=== PATIENT | female | born 1965 | race Caucasian/White ===

== ENCOUNTER 2024-05-06 08:07 | Emergency (ER) | payer OTHER, SELFPAY ==
--- NOTE | ~2024-05-06 | MR_ITS ---
EXAMINATION: MR BRAIN WITHOUT AND WITH CONTRAST CLINICAL INFORMATION: Headaches. Paresthesia. COMPARISON: CT head from 05/06/2024. TECHNIQUE: MRI of the brain was obtained using routine sequences without and following the administration of 10 mL of Gadavist intravenous contrast. FINDINGS: No focal restricted diffusion is demonstrated to suggest acute or subacute cerebral ischemia. No evidence of acute or chronic hemorrhagic products on heme-sensitive imaging. Scattered periventricular and deep white matter T2 FLAIR hyperintensities consistent with mild underlying microangiopathy. The ventricles are normal in morphology and size. No abnormal mass effect. No midline shift. Normal appearance of the pituitary gland. The cerebellar tonsils are mildly low lying, positioned 0.3 cm below the foramen magnum. The CSF space of the foramen magnum is maintained. Normal arterial and venous vascular flow voids are present. No abnormal contrast enhancement. Normal, homogeneous marrow signal. Mild mucosal thickening of the paranasal sinuses. No signal abnormalities within the mastoids. MR/MR head/brain wo/w con IMPRESSION: 1. No acute intracranial abnormalities. No abnormal intracranial enhancement. 2. Mild underlying microangiopathy. 3. Mild cerebellar tonsillar ectopia.
--- NOTE | ~2024-05-06 | CT_ITS ---
EXAMINATION: CT HEAD WITHOUT CONTRAST CLINICAL INFORMATION: Chronic worsening headache. COMPARISON: None available. TECHNIQUE: Contiguous axial imaging was performed from the skull base to vertex without intravenous administration of contrast. This CT examination was performed using dose optimization techniques as appropriate, variously including the following: *Automated exposure control *Adjustment of mA and/or kV according to patient size (this includes techniques or standardized protocols for targeted exams where dose is matched to indication/reason for exam; i.e. extremities or head) *Use of iterative reconstruction technique DLP: 632 mGy-cm FINDINGS: There is possible loss of villalba to white matter differentiation in the posterior right occipital lobe. No intracranial hemorrhage. No mass effect or midline shift is seen. No extra-axial fluid collections are identified. No hydrocephalus. The calvarium is intact. The mastoid air cells and visualized portions of the paranasal sinuses are well aerated. CT/CT head/brain wo IV con IMPRESSION: Possible loss of villalba to white matter differentiation the posterior right occipital lobe concerning for underlying pathology. Advise correlation with MRI brain without and with contrast.
[2024-05-06 08:08] VITALS: BP 149/65; PULSE 67; RESP 20; TEMP 37.2; O2SAT 97; BMI 40.4
--- NOTE | 2024-05-06 08:17 | PC.NURSE ---
neuros intact in triage, ÁNGEL strength in all four extremities. while talking to this RN pt had a moment where she appeared to have lost her train of thought and just stopped talking completely with a vacant stare. recalled to name. Dann barrel rib matting machine operator made aware and pt moved to ED 2
[2024-05-06 08:40] VITALS: BP 153/73; PULSE 60; RESP 18; TEMP 36.9; O2SAT 96
--- NOTE | 2024-05-06 08:40 | ECG_ITS ---
Test Reason : HTN Blood Pressure : / mmHG Vent. Rate : 053 BPM Atrial Rate : 053 BPM P-R Int : 146 ms QRS Dur : 088 ms QT Int : 436 ms P-R-T Axes : 115 113 119 degrees QTc Int : 409 ms Suspect limb lead reversal, interpretation assumes no reversal Sinus bradycardia Left posterior fascicular block Cannot rule out Anterior infarct , age undetermined Abnormal ECG No previous ECGs available Referred By: Jocelin Hill Electronically Signed By:TED ACKERMAN
--- NOTE | 2024-05-06 08:42 | ED.GENADULT ---
HPI - General Adult General Chief complaint: General Medical Stated complaint: SOB Facial Numbness Time Seen by Provider: 05/06/24 08:16 Source: patient Mode of arrival: ambulatory Limitations: no limitations History of Present Illness ED Provider: PEDRO HPI narrative: 58 yo female with PMH of anxiety/depression on sertraline, DANIEL on CPAP, obesity who has had chronic headaches for 1 year L side then evolves into L sided facial paresthesias. She has also been under significant stress at home caring for her 81 year old mother with limited help from her sibling. She is very stressed out has been having more headaches and symptoms. Randomly checked her BP today with mom's machine and it was 140/80s and she panicked. She is very tearful on arrival. MD complaint: HTN, anxiety Onset (ago): hour(s) (few) Location: head and face Radiation: non-radiation Severity: mild Quality: aching Pain Consistency: intermittent Relieving factors: none Exacerbating factors: other (stress) Associated symptoms: other (paresthesias) Treatments prior to arrival: none Related Data Previous Rx's ?Medication ?Instructions ?Recorded lorazepam 0.5 mg tablet (Ativan) 0.5 mg PO BID PRN anxiety #10 tabs 05/06/24 Allergies Allergy/AdvReac Type Severity Reaction Status Date / Time Penicillins Allergy Rash Verified 05/06/24 08:12 Review of Systems Review of Systems: Constitutional : No Fever, No Chills, No Fatigue ENT/Mouth : No sore throat, No Rhinorrhea Eyes: No Eye Pain, No Swelling, No Redness Cardiovascular : No Chest Pain, No SOB, No Dyspnea on Exertion Respiratory : No Cough, No Sputum Gastrointestinal : No Nausea, No Vomiting, No Diarrhea, No abdominal Pain Genitourinary : No Dysuria, No Urinary Frequency, No Hematuria, Musculoskeletal : No joint pain, No Myalgias, No Joint Swelling Skin : No Skin Lesions, No rash Neuro : No Weakness, pos Numbness, No Dizziness, positive Headache Psych : pos Anxiety/Panic, No Depression Heme/Lymph: No Bruising, No Bleeding,No Lymphadenopathy Endocrine : No Polyuria, No Polydipsia All other systems reviewed and are negative PMFSH Past Medical History Attestation statement: The following information was validated with the patient. Source: old records reviewed Medical History Anxiety DANIEL (obstructive sleep apnea) Obesity Social History Social History (Updated 05/06/24 @ 09:08 by Jocelin Hill DO) Patient Tobacco Use Status: Never used Tobacco Smoked in Last 30 Days: No Use of substances other than those prescribed or required for medical reasons: No Advance Directives: No Advance Directives Information Provided: No Do you have a plan to hurt others: No Plan Patient : No Physical Exam ED Vital Signs: Vital Signs - 24 hr 05/06/24 08:08 05/06/24 08:40 05/06/24 12:21 Temperature 99 F 98.4 F 98.6 F Pulse Rate 67 60 53 Respiratory Rate 20 18 18 Blood Pressure 149/65 H 153/73 H 130/59 L Pulse Oximetry 97 96 97 Oxygen Delivery Method Room Air Room Air Room Air 05/06/24 13:52 Temperature 98.6 F Pulse Rate 58 Respiratory Rate 15 Blood Pressure 133/59 L Pulse Oximetry 98 Oxygen Delivery Method Room Air BMI result Body Mass Index 40.4 Appearance: Alert. Oriented X3. No acute distress. tearful and anxious Eyes: Pupils equal, round and reactive to light. ENT: Pharynx normal. Neck: Normal inspection. Neck supple. CVS: Normal heart rate and rhythm. Pulses normal. Respiratory: No respiratory distress. Breath sounds normal. Abdomen: Soft and nontender. Skin: Skin warm and dry. Normal skin color. Normal skin turgor. Extremities: No lower extremity edema. No calf ttp Neuro: Oriented X 3. No motor deficit. No sensory deficit. NIH Stroke Scale Internal: Initial- Upon Arrival Time: 09:00 Level of Consciousness: Alert Level of Consciousness Questions: Answers both questions correctly Level of Consciousness Commands: Performs both tasks correctly Best Gaze: Normal Visual: No visual loss Facial Palsy: Normal Motor Arm (Right): No drift Motor Arm (Left): No drift Motor Leg (Right): No drift Motor Leg (Left): No drift Limb Ataxia: Absent Sensory: Normal Best Language: No aphasia Dysarthia: Normal Extinction and Inattention: No abnormality Score: 0 Course Course Course Narrative: given CT scan brain MRI ordered patient is aware Reevaluation(s) Reevaluation #1: observation care revealed that the patient does not meet medical necessity for hospitalization. final disposition discussed with the patient. The patient completed observation care at 430pm. Total time in observation care was 4 hours. Medications Administered Discontinued Medications Generic Name Dose Route Start Last Admin Trade Name Rosalva PRN Reason Stop Dose Admin Gadobutrol 10 ml 05/06/24 15:25 05/06/24 15:26 Gadobutrol 10 Ml Vial IVPUSH 05/06/24 15:26 10 ml ONCE ONE Administration Lorazepam 1 mg 05/06/24 08:40 05/06/24 08:52 Lorazepam 1 Mg Tablet PO 05/06/24 08:41 1 mg ONCE ONE Administration Medical Decision Making Medical Decision Making MDM Narrative: 58 yo female with PMH of anxiety/depression on sertraline, DANIEL on CPAP, obesity who has had worsening headaches, anxiety, facial tingling for 1 year at this time will obtain labs, po ativan for anxiety, CT head for mass - EKG suspect anxiety and stress induced symptoms her NIH is 0 symptoms atypical for TIA and stroke Differential Diagnosis Differential Diagnoses: The differential diagnosis associated with the presentation includes anxiety, stress, complex migraine Admission/Observation Consideration of admission/observation: Escalation of care including admission/observation considered physician observation started at 1156am pending MRI negative workup stable for DC Lab Data [facility] Lab Attestation statement: I reviewed the patient's lab results. 05/06/24 08:47 05/06/24 08:47 Labs: Lab Results 05/06/24 Range/Units 08:47 WBC 5.5 (4.8-10.8) X10*3/uL RBC 4.56 (4.20-5.50) X10*6/uL Hgb 13.4 (12.0-16.0) g/dl Hct 39.8 (37.0-47.0) % MCV 87.3 (80.0-98.0) fL MCH 29.4 (27.0-33.0) pg MCHC 33.7 (31.0-35.0) g/dl RDW 13.2 (11.0-16.0) % Plt Count 175 (160-400) X10*3/uL MPV 12.3 (9.4-12.3) fL Immature Gran % (Auto) 0.2 (0.0-0.4) % Neut % (Auto) 50.7 (45-73) % Lymph % (Auto) 37.4 (20-40) % [place] % (Auto) 8.3 (2-11) % Eos % (Auto) 2.5 (0-4) % Baso % (Auto) 0.9 (0-2) % Lymph # (Auto) 2.1 (1.2-4.9) X10*3/uL [place] # (Auto) 0.5 (0.1-1.2) X10*3/uL Eos # (Auto) 0.1 (0.0-0.4) X10*3/uL Baso # (Auto) 0.1 (0.0-0.2) X10*3/uL Abs Immat Gran (auto) 0.01 (0.00-0.03) X10*3/uL Absolute Neuts (auto) 2.8 (2.0-8.3) x10*3/uL Absolute Nucleated RBC 0.000 (0.0-0.012) X10*3/uL Nucleated RBC % (auto) 0.0 (0.0-0.2) /100WBC Sodium 141 (135-145) mmol/L Potassium 4.1 (3.3-5.1) mmol/L Chloride 108 (96-108) mmol/L Carbon Dioxide 26 (22-29) mmol/L Anion Gap 11 L (12-20) BUN 15 (9-16) mg/dL Creatinine 0.77 (0.5-1.4) mg/dL Estim Creat Clear Calc 89.3 Estimated GFR > 60 Random Glucose 101 (60-115) mg/dL Calcium 9.4 (8.4-10.2) mg/dL Magnesium 2.2 (1.6-2.6) mg/dL Total Bilirubin 0.3 (0.0-1.0) mg/dL Direct Bilirubin 0.1 (0.0-0.5) mg/dL AST 14 (5-31) U/L ALT 12 (0-31) U/L Alkaline Phosphatase 49 (39-117) U/L Troponin I High Sens < 2.7 (<3.5-17.0) ng/L Total Protein 6.6 (6.5-8.0) g/dL Albumin 4.0 (3.5-5.0) g/dL Independent Interpretation I performed an independent interpretation of an: EKG and CT Scan (MRI no stroke) Interpretation: Rate: 53 Rhythm: sinus flako Paradox: normal Normal P waves. Normal MARTÍN. Normal QRS complex. Poor R wave progression ST T wave : inverted t waves I and avL, no PARKER qTC: 409 prior studies: no prior The study has been interpreted contemporaneously by me. . Radiology Impression Discussion of test interpretation with radiology: I have reviewed the radiologist's reading. External Record Review External record reviewed: Inpatient record Prescription Management I considered prescription management with: Other Discharge Plan Discharge Clinical Impression: Acute anxiety, Paresthesia Patient Disposition: Home, Self-Care Instructions: Paresthesia (ED), Anxiety (ED) Additional Instructions: nonspecific findings on EKG MRI no stroke but low lying tonsils this is chronic and can be followed by Neurology can follow up with Eric follow up with your primary care doctor next week return for any worsening symptoms or concerns continue your medications MR/MR head/brain wo/w con IMPRESSION: 1. No acute intracranial abnormalities. No abnormal intracranial enhancement. 2. Mild underlying microangiopathy. 3. Mild cerebellar tonsillar ectopia. Prescriptions: New lorazepam [Ativan] 0.5 mg tablet 0.5 mg PO BID PRN (Reason: anxiety) Qty: 10 0RF Referrals: King Reyes MD [Physician] - (neurology can call to follow up) Alfonso Salguero MD [Physician] - (call to follow up with stress test) Stand Alone Forms: Work/School Release Print Language: Irish
[2024-05-06 08:51] LABS: MANUAL DIFF FLAG NO
[2024-05-06] MEDS: LORazepam 1 MG TABLET PO (08:52)
--- NOTE | 2024-05-06 08:53 | PC.NURSE ---
a&ox4. vss and up to date aside from being slightly hypertensive. pt verbalizes presenting to the ED d/t increased BP after taking it at home. pt verbalizing feeling extremely stressed out w/ taking care of mother at home. pt very tearful/anxious during assessment. pt also verbalizing sudden onset left sided MUNIZ w/ numbness/tingling in left side of face. pt verbalizes MUNIZ started after taking BP. pt denies dizziness/lightheadedness/change in vision. 20gIV placed in the left AC. medication administered per provider. effectiveness pending. no sob/wob noted. respirations even/unlabored. pt waiting to go to CT at this time. plan of care ongoing. call heck placed within reach.
[2024-05-06 08:57] LABS: Basophils Absolute Auto 0.1 X10*3/uL (0.0-0.2); Basophils Percent Auto 0.9 % (0-2); Eosinophils Absolute Auto 0.1 X10*3/uL (0.0-0.4); Eosinophils Percent Auto 2.5 % (0-4); Hematocrit 39.8 % (37.0-47.0); Hemoglobin 13.4 g/dl (12.0-16.0); Imm Gran Abs Auto 0.01 X10*3/uL (0.00-0.03); Imm Gran Pct Auto 0.2 % (0.0-0.4); Lymphocytes Absolute Auto 2.1 X10*3/uL (1.2-4.9); Lymphocytes Percent Auto 37.4 % (20-40); Mean Corpuscular HGB Conc 33.7 g/dl (31.0-35.0); Mean Corpuscular Hemoglobin 29.4 pg (27.0-33.0); Mean Corpuscular Volume 87.3 fL (80.0-98.0); Mean Platelet Volume 12.3 fL (9.4-12.3); Monocytes Absolute Auto 0.5 X10*3/uL (0.1-1.2); Monocytes Percent Auto 8.3 % (2-11); Neutrophils Absolute Auto 2.8 x10*3/uL (2.0-8.3); Neutrophils Percent Auto 50.7 % (45-73); Platelet Count 175 X10*3/uL (160-400); Red Blood Count 4.56 X10*6/uL (4.20-5.50); Red Cell Distribution Width 13.2 % (11.0-16.0); White Blood Count 5.5 X10*3/uL (4.8-10.8)
[2024-05-06 09:09] LABS: Alanine Aminotransferase 12 U/L (0-31); Alkaline Phosphatase 49 U/L (39-117); Anion Gap 11 (12-20); Aspartate Amino Transferase 14 U/L (5-31); Bilirubin Direct 0.1 mg/dL (0.0-0.5); Bilirubin Total 0.3 mg/dL (0.0-1.0); Blood Urea Nitrogen 15 mg/dL (9-16); Calcium 9.4 mg/dL (8.4-10.2); Carbon Dioxide 26 mmol/L (22-29); Chloride 108 mmol/L (96-108); Creatinine Clr Calc Pharmacy 89.3; Estimated Glomerular Filt Rate > 60; Glucose Random 101 mg/dL (60-115); Magnesium 2.2 mg/dL (1.6-2.6); Potassium 4.1 mmol/L (3.3-5.1); Sodium 141 mmol/L (135-145); Total Protein 6.6 g/dL (6.5-8.0)
--- NOTE | 2024-05-06 09:10 | PC.NURSE ---
pt to CT at this time.
[2024-05-06 09:22] LABS: Troponin-I High Sensitivity < 2.7 ng/L (<3.5-17.0)
--- NOTE | 2024-05-06 11:09 | PC.NURSE ---
pt spoke w/ ED provider in regards to CT results/aware of plan of care moving forward. MRI form filled out/faxed/placed in pt chart. plan of care ongoing.
[2024-05-06 12:21] VITALS: BP 130/59; PULSE 53; RESP 18; TEMP 37; O2SAT 97
[2024-05-06 13:52] VITALS: BP 133/59; PULSE 58; RESP 15; TEMP 37; O2SAT 98
--- NOTE | 2024-05-06 14:15 | PC.NURSE ---
pt to MRI at this time.
[2024-05-06] MEDS: gadobutroL 10 ML VIAL IVPUSH (15:26)
[2024-05-06 16:41] VITALS: BP 131/60; PULSE 54; RESP 14; TEMP 36.6; O2SAT 98
== END 2024-05-06 16:46 | disposition home or self-care (01) ==
PROVIDERS: Emergency Provider Emergency Medicine
DX: F41.1 Generalized anxiety disorder (principal); F43.0 Acute stress reaction; R00.1 Bradycardia, unspecified; R06.02 Shortness of breath; R20.0 Anesthesia of skin; G47.33 Obstructive sleep apnea (adult) (pediatric); R51.9 Headache, unspecified; Z79.899 Other long term (current) drug therapy
CPT/HCPCS: 36415; 70450; 70553; 80048; 80076; 83735; 84484; 85025; 93005; 99284; 99285; A9585

== ENCOUNTER → 2024-05-06 08:40 | Outpatient (BNV) | payer OTHER, SELFPAY | PROVIDERS: Emergency Provider Emergency Medicine; Visit Provider Internal Medicine | DX: I10 Essential (primary) hypertension (principal); R00.1 Bradycardia, unspecified; R94.31 Abnormal electrocardiogram [ECG] [EKG] | CPT/HCPCS: 93010 ==

== ENCOUNTER 2024-06-30 11:02 | Outpatient (AMB) | payer OTHER, SELFPAY ==
[2024-06-30 11:04] VITALS: BP 128/72; PULSE 78
--- NOTE | 2024-06-30 11:04 | A.OFFVIS_ITS ---
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 She states that she does have a lot of anxiety as she has take care of elderly mother. She recently, she had a very stressful time and that led to ER visit. However, no clear-cut cardiac symptoms like exertional angina or shortness of breath. No known cardiac issues including coronary disease or myocardial infarction or cardiomyopathy. Otherwise, feels well. She is concerned as there is a family history of cardiac issues in her father and his side. [facility] Medical History Anxiety DANIEL (obstructive sleep apnea) Obesity Family History Mother Hypertension Father Heart attack Hypertension CHF (congestive heart failure) Brother Aortic calcification Social History (Updated 06/30/24 @ 11:08 by Ana Paula Lieberman CMA) Alcohol intake: current Comment: rarely Patient Tobacco Use Status: Never used Tobacco Review of Systems Const Denies chills, Denies daytime sleepiness, Denies fatigue, Denies fever(s), Denies poor appetite, Denies snoring, Denies stops breathing during sleep, Denies weakness, Denies weight gain and Denies weight loss Eyes Denies loss of vision ENT Denies dizziness and Denies hearing loss Card Denies chest pain, Denies irregular heart rhythm, Denies claudication, Denies leg edema, Denies lightheadedness, Denies palpitations, Denies dyspnea on exertion and Denies orthopnea Resp Denies cough, Denies excessive phlegm production, Denies dyspnea on exertion, Denies snoring and Denies wheezing GI Denies abdominal pain, Denies hematochezia, Denies change in bowel habits, Denies nausea and Denies vomiting Denies urinary frequency and Denies dysuria Musc Denies arthralgias, Denies muscle weakness, Denies numbness and Denies other Skin/Breast Denies nail changes and Denies rash Neuro Denies Abnormal speech present, Denies dizziness, Denies loss of vision, Denies memory loss, Denies numbness and Denies weakness Psych Denies depression and Denies memory loss Endo Denies fatigue and Denies palpitations Primitivo/Lymph Denies easy bruising Aller/Immun Denies wheezing Physical Exam Vital Signs: Last Vital Signs Pulse 78 06/30/24 11:04 BP 128/72 06/30/24 11:04 Const General: comfortable and no acute distress Orientation/consciousness: patient oriented x3 HEENT Other: Unremarkable Head: Yes normal to inspection Neck Neck: Yes normal visual inspection Chest Chest palpation & inspection: normal inspection of the chest Resp Auscultation: clear to auscultation bilaterally Cardio Palpation: normal PMI Heart sounds: S1 normal heart sound present, S2 normal heart sound present, no gallops, Murmur heart sound present systolic II/ and no rubs GI Palpation (GI): Soft to palpation Back/Spine/Pelvis Other: unremarkable Skin General skin exam: no rashes or lesions noted Neuro General: patient oriented x3 Speech: No Abnormal speech present Extrem General: Yes normal to inspection Psych Mental Status: mental status grossly normal Office Procedures EKG Details: EKG with underlying sinus rhythm at 64/Min; low-voltage QRS complexes likely from body habitus; no significant ST-T changes and otherwise unremarkable. Left posterior fascicular block described in the earlier EKGs likely from lead placement error. [id number], Complete Assessment & Plan Assessment & Plan (1) Family history of coronary artery disease: Code(s): Z82.49 - Family history of ischemic heart disease and other diseases of the circulatory system Category: Medical Plan: We discussed about calcium scoring CT scan and she is willing. Can be scheduled. (2) Aortic valve sclerosis: Code(s): I35.8 - Other nonrheumatic aortic valve disorders Category: Medical Plan: Systolic murmur suggestive of possibly aortic sclerosis. We can get an echocardiogram. Orders: Orders CA echo transthoracic complete Today I35.8 - Other nonrheumatic aortic valve disorders CT Coronary Calcium Score Today I25.10 - Atherosclerotic heart disease of [place] coronary artery without angina pectoris, Z82.49 - Family history of ischemic heart disease and other diseases of the circulatory system Medications: Discontinued lorazepam (Ativan) Discontinued Reason: Patient no longer taking 0.5 mg PO BID PRN 10 tabs 0RF anxiety Coding Level of Care Code New Pt Level 3 (90548) Diagnoses Family history of coronary artery disease Z82.49 Aortic valve sclerosis I35.8 CPT Codes EKG - CPT: 82231-[id number], Complete ([id number])
== END 2024-06-30 11:32 | disposition home or self-care (01) ==
PROVIDERS: Visit Provider Internal Medicine
DX: I35.8 Other nonrheumatic aortic valve disorders (principal); R01.1 Cardiac murmur, unspecified; Z82.49 Family history of ischemic heart disease and other diseases of the circulatory system
CPT/HCPCS: 93010; 99213

== ENCOUNTER → 2024-06-30 11:02 | Outpatient (BNVA) | payer OTHER, SELFPAY | PROVIDERS: Visit Provider Internal Medicine | DX: I35.8 Other nonrheumatic aortic valve disorders (principal); Z82.49 Family history of ischemic heart disease and other diseases of the circulatory system | CPT/HCPCS: 93005 ==

== ENCOUNTER → 2024-08-09 09:05 | Outpatient (REF) | payer OTHER, SELFPAY ==
--- NOTE | 2024-08-09 09:16 | CA_ITS ---
Transthoracic Echocardiogram Patient (Last, First, Middle): Sasha Miranda Czerpak Gender: Female Date of : 1965 Age: 58 Procedure Date: 08/09/2024 Procedure Type: Transthoracic Echocardiogram Location: OP Height: 160.02 cm Weight: 99.79 kg BSA: 2.01 m2 Heart Rate: bpm BP: 120 / 68 mmHg [employer]: MIKE Referring MD: Lino Gresham MD Logistics System Engineer: Trip Marshall MD Symptoms: I35.8 - Other nonrheumatic aortic valve disorders Study Quality: Adequate ECG Rhythm: Sinus Conclusions: - Essentially normal study Findings Left Ventricle Normal left ventricular size, thickness, and systolic function. The visually estimated ejection fraction is between 60-65%. Spectral Doppler is indicative of a normal filling pattern. Peak GLS is -21.7%, within normal limits. Right Ventricle Normal right ventricular cavity size and systolic function. Atria Both atria are normal in size. There is no evidence of interatrial shunt. Aortic Valve Normal aortic valve structure and function. There is no aortic valve stenosis. There is no aortic valve regurgitation. Mitral Valve Normal mitral valve structure and function. There is trace mitral valve regurgitation. There is no mitral valve stenosis. Pulmonic Valve The pulmonic valve is likely normal. Tricuspid Valve Normal tricuspid valve structure. Tricuspid regurgitation envelope is inadequate for calculation of right ventricular systolic pressure. Normal right atrial pressure. Great Vessels All visible segments of the aorta are normal in size. The pulmonary artery was not well visualized. There is no dilatation of the ascending aorta measuring 3.30 cm. Venous The inferior vena cava is normal in size and collapses greater than 50% with inspiration. Pericardium/Pleural There is no evidence of pericardial effusion. Prior Study Comparison No prior study available for comparison. Measurements 2D Linear Measurements IVSd: 0.80 0.6-0.9/0.6-1.0 cm LVIDd: 4.83 3.9-5.3/4.2-5.9 cm LVIDd Index: 2.40 2.4-3.2/2.2-3.1 cm/m2 LVIDs: 3.27 2.0-3.6 cm LVPWd: 0.84 0.7-1.1 cm LA Diam: 3.90 2.7-3.8/3.0-4.0 cm LAIDs Index: 1.94 1.5-2.3 cm/m2 LV Mass: 164.23 67-162/88-224 g LV Mass Index: 81.70 43-95/49-115 g/m2 LVOT Diam: 1.90 3.0+(-)1.3 cm 2D Systolic Function EF 4C: 61.60 >55% EF 2C: 62.80 >55% EF BiP: 63.10 >55% Mitral Valve MV Pk E: 0.83 MV PK A: 0.68 MV Decel Time: 239.00 E/A: 1.20 E'Lateral: 10.30 E'Medial: 7.29 E/E' Med: 11.40 E/E' Lat: 8.10 PHT: 70.00 MVA PHT: 3.14 Decel Clark: 3.48 Aortic Valve AoV Pk [place]: 1.45 AoV Mn [place]: 1.01 AoV VTI: 0.35 AoV Pk Grad: 8.00 Aov Mn Grad: 4.00 KELLIE Cont.VTI: 2.47 LVOT LVOT Pk [place]: 1.28 LVOT Mn [place]: 0.83 LVOT VTI: 0.30 LVOT Pk Grad: 7.00 LVOT Mn Grad: 3.00 LVOT Diam: 1.90 LVOT Area: 2.84 Diastolic Function MV Pk E: 0.83 MV Pk A: 0.68 E/A: 1.20 E'Medial: 7.29 E/E' Med: 11.40 E' Laterial: 10.30 E/E' Lat: 8.10 Right Ventricle TAPSE (mm): 25.80 TVS' [place]: 11.30 Tricuspid Valve RA Press: 3.00 Great Vessels Aorta Sinus of Valsalva: 3.01 2.0-3.[address] [place]: 2.41 1.7-3.4 cm Ao Asc: 3.30 2.1-3.4 cm Updated in Other Vendor System with Status of Final Trip Marshall MD electronically signed on 08/10/2024 1:34:43 PM with status of Final
== END ==
LOC: HO.CARD 09:05
PROVIDERS: Visit Provider Internal Medicine
DX: I35.8 Other nonrheumatic aortic valve disorders (principal)
CPT/HCPCS: 93306; 93356

== ENCOUNTER → 2024-08-09 09:16 | Outpatient (BNV) | payer OTHER, SELFPAY | PROVIDERS: Visit Provider Internal Medicine Cardiovascular Disease | DX: I35.8 Other nonrheumatic aortic valve disorders (principal) | CPT/HCPCS: 93306; 93356 ==

== ENCOUNTER 2025-10-02 11:34 | Outpatient (AMB) | payer OTHER, SELFPAY ==
--- NOTE | 2025-10-02 11:37 | A.OFFVIS_ITS ---
Vital Signs 3 10/02/25 12:10 Height 5 ft 3 in Weight 178 lb BMI 31.5 Intake Visit Reasons: breast concerns Intake Note: Patient is seen in office for breast concerns. 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 This was performed at [facility]. She subsequently underwent a stereotactic guided core biopsy in the right breast upper outer quadrant and was found to have severely atypical ductal hyperplasia bordering on ductal carcinoma in-situ (pathology performed by [facility]). The radiologist, Dr. Patel, noted other areas of calcification in the right breast which were also felt to be suspicious. He recommended performing a breast MRI and possibly biopsy of the other areas of calcification. She reports a previous history of a right breast needle biopsy in the lower outer quadrant which was benign. Her family history is significant for a paternal aunt with breast cancer diagnosed when she was 75 years old. There is no family history of ovarian cancer. The patient's menarche was at 9, she is in her 1st child was born when she was 32 years old. Her last period was when she was 50 years old. She denies hormone replacement therapy. She denies Ashkenazi Denominational heritage. She denies any breast symptoms pain, redness, nipple discharge, or palpable masses. [facility] Medical History Anxiety DANIEL (obstructive sleep apnea) Obesity Surgical History History of carpal tunnel release of both wrists Hx of tonsillectomy Family History (Updated 10/02/25 @ 12:17 by EDUARDO Patel) Mother Hypertension Father Heart attack Hypertension CHF (congestive heart failure) Brother Aortic calcification Prostate cancer Paternal Aunt Breast cancer, Onset Age: 75 Social History Alcohol intake: current Comment: rarely Patient Tobacco Use Status: Never used Tobacco Female Reproductive History Menstrual Age of Menarche: 9 Age of menopause: 48 Total pregnancies: 1 Review of Systems Const All systems reviewed & are unremarkable except as noted in HPI and below Physical Exam Const General: cooperative and no acute distress Nutritional Appearance: well nourished Orientation/consciousness: patient oriented x3 Limitations: no limitations HEENT Head: Yes normocephalic and Yes atraumatic Ears: hearing grossly normal bilaterally Chest Other: Left breast: No skin change, no nipple retraction, no nipple discharge, no palpable mass, no enlarged lymph nodes. Right breast: No skin change, no nipple retraction, no nipple discharge, no palpable mass, no enlarged lymph nodes Chest/axillae images: 2 1. Needle biopsy site upper outer quadrant right breast Resp Effort & Inspection: normal respiratory effort, no audible wheezes, no cough and no respiratory distress Cardio Jugular venous distension: no JVD GI Inspection: Yes normal to inspection Skin Other: Warm, dry, no rash Neuro General: patient oriented x3 Extrem General: Yes no clubbing, cyanosis or edema Assessment & Plan Assessment & Plan (1) Atypical ductal hyperplasia of right breast: Code(s): N60.91 - Unspecified benign mammary dysplasia of right breast Category: Medical Plan 59-year-old female patient presenting for evaluation of right breast atypical ductal hyperplasia. Images are not available at the time of this visit however patient was able to show me reports on her portal. Patient reports that the radiologist spoke to her and suggested breast MRI and possible biopsy of the other areas of calcification prior to lumpectomy. Examination today revealed no suspicious findings in either breast. I will requested the MRI of the breast in the meantime we will attempt to have the images transferred for further review as well as pathology slides. Further management will be based on the studies. We discussed the necessity of lumpectomy to assure complete removal of the ADH. The patient expressed understanding and agrees with the plan. Orders: Orders 2 MR breast BI wo/w con Today N60.91 - Unspecified benign mammary dysplasia of right breast Coding Level of Care Code New Pt Level 4 (15303) Diagnoses Atypical ductal hyperplasia of right breast N60.91
[2025-10-02 12:10] VITALS: BMI 31.5
--- OUTSIDE RECORDS SUMMARY | 2025-10-02 13:58 | XMS_ITS | Clinical Summary ---
Author Organization [facility] Address [address] [place] [address] Care Team Providers Care Train Attendant Name Role Phone Unavailable Primary Care Provider Unavailabl e Allergies No known active allergies Medications No known medications Active Problems Problem Noted Date Diagnosed Date DANIEL on CPAP 06/10/2022 DANIEL (obstructive sleep apnea) 03/04/2022 Immunizations Name Administration Dates Next Due Influenza Quad (Fluarix/Fluz one/FluLaval) 0.5mL (SD-IIV4) 09/20/2022 Social History Tobacco Use Types Packs/Day Years Used Date Smoking Tobacco: Never Smokeless Tobacco: Never Tobacco Cessation:Counseling Given: Not Answered Sex and Gender Information Value Date Recorded Sex Assigned at Not on file Gender Identity Not on file Sexual Orientation Not on file Job Start Date Occupation Industry Not on file Not on file Not on file Last Filed Vital Signs Vital Sign Reading Time Taken Comments Blood Pressure 123/80 03/15/2024 9:31 AM EDT Pulse 83 03/15/2024 9:31 AM EDT Temperature 36.1 C (96.9 F) 03/15/2024 9:31 AM EDT Respiratory Rate - - Oxygen Saturation 99% 03/15/2024 9:31 AM EDT Inhaled Oxygen Concentration - - Weight 102.1 kg (225 lb) 03/15/2024 9:31 AM EDT Height 160 cm (5' 3 ) 03/15/2024 9:31 AM EDT Body Mass Index 39.86 03/15/2024 9:31 AM EDT Plan of Treatment Health Maintenance Due Date Last Done Comments Hepatitis C Screening 1963 Depression Screening 1975 BMI Counseling 1981 Preventative Health Evaluation 1981 DTap / Tdap / Td (1 - Tdap) 1982 Cervical Cancer Screening (Pap Smear) 1984 Colon Cancer Screening (Colonoscopy) 2008 Breast Cancer Screening (Mammogram) 2013 Shingrix-Zoster Vaccine (2 of 2) 12/01/2023 10/06/2023 COVID-19 Vaccine ( - season) 2025 09/02/2023, 09/08/2022, 08/25/2021, Additional history exists Influenza Vaccine (#1) 2025 3, 09/20/2022, 09/18/2022, Additional history exists RSV Adult > 60+ Yrs or (1 - 1-dose 75+ series) 2038 Hepatitis B Vaccines Aged Out No long er eligible based on patient's age to complete this topic Pneumococcal Vaccine Aged Out No long er eligible based on patient's age to complete this topic RSV Ped < 20 months Aged Out No longe r eligible based on patient's age to complete this topic
--- OUTSIDE RECORDS SUMMARY | 2025-10-02 13:58 | XMS_ITS | Clinical Summary ---
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 Equipment Field Mechanic Name Role Phone Viral Rico MD Primary Care Provider + [phone] Medications Escitalopram Oxalate (LEXAPRO) 10 MG tablet TAKE 1 AND 1/2 TABLETS BY MOUTH DAILY 45 0 07/26/2021 Active Azithromycin (ZITHROMAX) 250 MG tablet 6 0 01/30/2022 Active Triamcinolone Acetonide (KENALOG) 0.5 % cream APPLY A THIN LAYER TO THE AFFECTED AREA(S) BY TOPICAL ROUTE 2 TIMES PER DAY FOR 2 WEEKS 15 0 06/26/2022 Active Sertraline HCl (ZOLOFT) 50 MG tablet 30 0 10/02/2022 Active Oxycodone HCl (ROXICODONE) 5 MG/5ML solution Use 5-10 ml po q 6 hours as needed for pain 400 0 11/19/2022 Active Active Problems Problem Noted Date Diagnosed Date Post-op pain 11/19/2022 Chronic tonsillitis 10/23/2022 Halitosis 03/26/2022 Tonsil stone 03/26/2022 Imbalance 03/25/2022 SNHL (sensory-neural hearing loss), asymmetrical 03/25/2022 Immunizations Immunization Administration Dates Next Due COVID-19, mRNA (Pfizer Pre F all 2022) Monovalent, 30 mcg/0.3 ml 08/25/2021,02/06/2021,01/15/2021 Covid-19, mRNA (Pfizer Comir raj) Seasonal, 30 mcg/0.3 mL (12+) 09/02/2023 Covid-19, mRNA (Pfizer Pre F all 2022) Bivalent, 30 mcg/0.3 ml tong-sucrose (12+) dose 09/08/2022 Influenza,injectable,quad,Prsrv Fr 09/02/2023 Social History Tobacco Use Types Packs/Day Years Used Date Smoking Tobacco: Never Assessed Comments Unknown Sex and Gender Information Value Date Recorded Sex Assigned at Not on file Legal Sex Female 6:34 PM EDT Gender Identity Not on file Sexual Orientation Not on file Plan of Treatment Health Maintenance Due Date Last Done Comments Hepatitis C Screening 1965 Pap Smear 1979 DTaP/Tdap/Td (1 - Tdap) 1981 Mammogram/Breast Imaging 2003 Colon Cancer Screening 2008 Pneumococcal 50+ years (1 of 1 - PCV) 2013 Zoster (Shingrix) (1 of 2) 2013 COVID-19 Vaccine ( season) 2025 09/02/2023, 09/08/2022, 08/25/2021, Additional history exists Influenza (#1) 2025 09/02/2023 RSV (1 - 1-dose 75+ series) 2038 HPV Vaccine (No Doses Required) Completed Hep A Aged Out No longer eligi ble based on patient's age to complete this topic Hep B Aged Out No longer eligi ble based on patient's age to complete this topic Hib Aged Out No longer eligi ble based on patient's age to complete this topic Meningococcal ACWY Aged Out No longer eligible based on patient's age to complete this topic Zoster (Zostavax) Discontinued Care Teams Heavy Equipment Field Mechanic Relationship Specialty Start Date End Date Viral Rico MD [address] [facility] [address] [place] [id number] PCP - General 06/29/23
--- OUTSIDE RECORDS SUMMARY | 2025-10-02 13:58 | XMS_ITS | Clinical Summary ---
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 12/18/2020 Active Multiple Vitamin (multivitamin) capsule Take by mouth. 12/18/2020 Active Active Problems Problem Noted Date Diagnosed Date Anxiety 06/02/2023 06/02/2023 Depression 06/02/2023 06/02/2023 Hypertrophy of uterus 06/02/2023 06/02/2023 Perforation of tympanic membrane 06/02/2023 06/02/2023 Encounters Date Type Department Care Team Description 09/21/2025 1:10 PM EDT - 09/21/2025 11:59 PM EDT Hospital Encounter OP SPECIMEN [facility] [address] [place] [address] Leslie Bailey MD Discharge Disposition: Home or Self Care from Last 3 Months Social History Tobacco Use Types Packs/Day Years Used Date Smoking Tobacco: Never Tobacco Cessation:Counseling Given: Not Answered Comments No Sex and Gender Information Value Date Recorded Sex Assigned at Female 06/13/2024 2:07 PM EDT Legal Sex Female 12:02 PM EDT Gender Identity Female 06/13/2024 2:07 PM EDT Sexual Orientation Heterosexual (straight) 06/13 2:07 PM EDT Last Filed Vital Signs Vital Sign Reading Time Taken Comments Blood Pressure 120/88 06/07/2024 9:05 AM EDT Pulse 58 06/03/2017 9:53 AM EDT Temperature 36.9 C (98.4 F) 06/03/2017 8:47 AM EDT Respiratory Rate 16 06/03/2017 9:53 AM EDT Oxygen Saturation 99% 06/03/2017 9:43 AM EDT Inhaled Oxygen Concentration - - Weight 97.5 kg (215 lb) 06/07/2024 9:05 AM EDT Height 160 cm (5' 3 ) 06/07/2024 9:05 AM EDT Body Mass Index 38.09 06/07/2024 9:05 AM EDT Plan of Treatment Health Maintenance Due Date Last Done Comments Hepatitis C Virus Screening 1965 HIV Screening 1976 DTaP/Tdap/Td Vaccines (1 - Tdap) 1982 Pneumococcal Vaccines 50+ (1 of 1 - PCV) 2013 Zoster (Shingles) Vaccine (1 of 2) 2013 Influenza Vaccine 06/23/2025 09/02/2023, , 09/24/2021 COVID-19 Vaccine ( season) 2025 09/02/2023, 09/08/2022, 08/25/2021, Additional history exists Pap Smear (Ages 21-65) 06/02/2026 06/02/2023 Colonoscopy 06/03/2027 06/03/2017, 06/03/2017 Mammogram 09/15/2027 09/15/2025, 05/25, 11/03/2023, Additional history exists RSV Vaccine 50 years and older and Patients (1 - 1-dose 75+ series) 2038 Hepatitis B Vaccines Aged Out No long er eligible based on patient's age to complete this topic Procedures Procedure Name Priority Date/Time Associated Diagnosis Comments HX OUTSIDE ORDER Routine 09/21/2025 11:0 2 PM EDT MG POST BIOPSY MAMMOGRAM- RIGHT Routine 09/21/2025 1:32 PM EDT MM STEREOTACTIC CORE BIOPSY - SPECIMEN IMAGE Routine 09/21/2025 1:32 PM EDT MM BREAST BIOPSY W/STEREO 1ST LESION-RIGHT Routine 09/21/2025 1:32 PM EDT Breast calcifications on mammogram PATHOLOGY REPORT Routine 09/21/2025 12:0 0 AM EDT IMAGING BREAST/BX/MAMMO Routine 09/15/2025 10:[address] ABDOMEN WITHOUT CONTRAST Routine 08/16/2025 11:37 AM EDT MG DX- 2D RIGHT DIAGNOSTIC-RR Routine 07/11/2025 10:07 AM EDT THINPREP PAP(RECREATION ADVISER) HPV SCR RFX HPV 16,18/45 Routine 06/02/2023 10:14 AM EDT Encounter for gynecological examination without abnormal finding from Last 3 Months or Most Recently Relevant to Health Maintenance Results * OUTSIDE ORDER (09/21/2025 11:02 PM EDT) us External Provider MD DOBBS AMB PROCEDURES Final Res ult * MG POST BIOPSY MAMMOGRAM- RIGHT (09/21/2025 1:32 PM EDT) Anatomical Region Laterality Modality Other 09/21/2025 1:45 PM EDT 09/21/2025 1:45 PM EDT Impressions 09/21/2025 1:52 PM EDT 1. Successful stereotactic core biopsy of indeterminate calcifications in the right breast. Specimens sent to pathology. 2. Accurate clip deployment. Final recommendations will be made once pathology has been obtained. 3. Additional group of calcifications is seen anterior to the biopsied group. Pending pathology additional recommendations will be made. Electronically signed by: Leslie Bailey MD 09/21/2025 01:52 PM EDT RP Thank you for referring your patient to us, Leslie Bailey [phone] (Electronically Signed - 09/21/2025 13:52) Narrative 09/21/2025 1:52 PM EDT Addendum: ADDENDUM #1 The final pathology results for the stereotactic-guided biopsy performed by Dr. 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 COMMENT: The biopsy shows an atypical cribriform intraductal proliferation. Although it shows features consistent with low grade DCIS, quantitatively it is too scant (two ducts) to establish a definitive diagnosis of DCIS and final diagnosis is deferred to evaluation of the excision specimen. These high risk/borderline malignant results are concordant with imaging. The T clip correlates to the biopsy site. Note multiple additional similar groups of calcifications in the right breast upper outer quadrant. Multiple small groups by up to 5 cm of distance. Biopsy of additional groups will likely be required. RECOMMENDATION: Surgical management recommended. Surgical consultation recommended. Collateral breast MRI. Biopsy of additional groups of calcifications may be required. Follow-up per breast surgery. COMMUNICATION: The patient was contacted and informed of the pathology results and recommendation by the radiologist. The referring health care providers office was contacted and informed of the pathology results and recommendation. Electronically signed by: Steve Patel MD 09/26/2025 12:13 PM [facility] [place] Thank you for referring your patient to us, Steve Patel MD [phone] (Electronically Signed - 09/26/2025 12:13) Original Report: EXAMINATION: MM STEREOTACTIC CORE BIOPSY AND PERCUTANEOUS CLIP PLACEMENT, RIGHT BREAST CLINICAL INFORMATION: Indeterminate right breast calcifications. PROCEDURE: Following a discussion of the risks, benefits and alternatives to the procedure, written informed consent was obtained. A procedure time out using three patient identifiers was performed. COMPARISON: Comparison was made to previous imaging. APPROACH: Superior. TECHNIQUE/FINDINGS: The calcifications were localized using stereotactic guidance. The right breast was prepped in the usual sterile fashion and 1% lidocaine without and with epinephrine was used for local anesthesia. After a small skin incision was made, a 9 G [employer] vacuum-assisted device was advanced to the calcifications. Pre-fire and post- fire images confirmed localization. Multiple core samples were obtained. A MR compatible T-shaped clip was deployed at the biopsy site. SPECIMEN RADIOGRAPH: Specimen radiography confirmed adequate sampling. All needles were removed and hemostasis achieved. POST-PROCEDURE MAMMOGRAM: CC and LM views were obtained. There are scattered areas of fibroglandular density. (ACR BI-RADS breast composition Category b)*. The clip is positioned at the area targeted for biopsy at 9 oclock. Additional group of calcifications is seen anterior to the biopsied group. Pending pathology additional recommendations will be made. Procedure Note Leslie Bailey MD / Steve Patel MD - 09/26/2025 Addendum: ADDENDUM #1 The final pathology results for the stereotactic-guided biopsy performedby Dr. Bailey on 09/21/2025 are: DIAGNOSIS: RIGHT BREAST, CORE BIOPSY AT 9 OCLOCK: Severely atypical ductal hyperplasia, borderline for low grade ductalcarcinoma in situ with associated calcifications, see comment. COMMENT: The biopsy shows an atypical cribriform intraductal proliferation.Although it shows features consistent with low grade DCIS, quantitativelyit is too scant (two ducts) to establish a definitive diagnosis of DCISand final diagnosis is deferred to evaluation of the excision specimen. These high risk/borderline malignant results are concordant withimaging. The T clip correlates to the biopsy site. Note multiple additional similar groups of calcifications in the rightbreast upper outer quadrant. Multiple small groups by up to 5 cmof distance. Biopsy of additional groups will likely be required. RECOMMENDATION: Surgical management recommended. Surgical consultation recommended. Collateral breast MRI. Biopsy of additional groups of calcifications may be required. Follow-upper breast surgery. COMMUNICATION: The patient was contacted and informed of the pathology results andrecommendation by the radiologist. The referring health care providers office was contacted and informed ofthe pathology results and recommendation. Electronically signed by: Steve Patel MD 09/26/2025 12:13 PM EST RPWorkstation: [id number] Thank you for referring your patient to us, Steve Patel MD [phone] (Electronically Signed - 09/26/2025 12:13) Original Report: EXAMINATION: MM STEREOTACTIC CORE BIOPSY AND PERCUTANEOUS CLIP PLACEMENT, RIGHTBREAST CLINICAL INFORMATION: Indeterminate right breast calcifications. PROCEDURE: Following a discussion of the risks, benefits and alternatives to theprocedure, written informed consent was obtained. A procedure time outusing three patient identifiers was performed. COMPARISON: Comparison was made to previous imaging. APPROACH: Superior. TECHNIQUE/FINDINGS: The calcifications were localized using stereotactic guidance. The rightbreast was prepped in the usual sterile fashion and 1% lidocaine withoutand with epinephrine was used for local anesthesia. After a small skinincision was made, a 9 G [employer] vacuum-assisted device was advanced to the calcifications. Pre-fire andpost-fire images confirmed localization. Multiple core samples wereobtained. A MR compatible T-shaped clip was deployed at the biopsy site. SPECIMEN RADIOGRAPH: Specimen radiography confirmed adequate sampling. All needles were removed and hemostasis achieved. POST-PROCEDURE MAMMOGRAM: CC and LM views were obtained. There are scattered areas of fibroglandulardensity. (ACR BI-RADS breast composition Category b)*. The clip ispositioned at the area targeted for biopsy at 9 oclock. Additional groupof calcifications is seen anterior to the biopsied group. Pending pathology additional recommendations will bemade. IMPRESSION: 1. Successful stereotactic core biopsy of indeterminate calcifications inthe right breast. Specimens sent to pathology. 2. Accurate clip deployment. Final recommendations will be made oncepathology has been obtained. 3. Additional group of calcifications is seen anterior to the biopsiedgroup. Pending pathology additional recommendations will be made. Electronically signed by: Leslie Bailey MD 09/21/2025 01:52 PM EDT RPWorkstation: [id number] Thank you for referring your patient to us, Leslie Bailey [phone] (Electronically Signed - 09/21/2025 13:52) us Ruthie Damon MD IMG LEGACY PROCEDURES Edited R esult - Final * MM STEREOTACTIC CORE BIOPSY - SPECIMEN IMAGE (09/21/2025 1:32 PM EDT) Anatomical Region Laterality Modality Other 09/21/2025 1:30 PM EDT 09/21/2025 1:30 PM EDT Impressions 09/21/2025 1:52 PM EDT 1. Successful stereotactic core biopsy of indeterminate calcifications in the right breast. Specimens sent to pathology. 2. Accurate clip deployment. Final recommendations will be made once pathology has been obtained. 3. Additional group of calcifications is seen anterior to the biopsied group. Pending pathology additional recommendations will be made. Electronically signed by: Leslie Bailey MD 09/21/2025 01:52 PM EDT Thank you for referring your patient to us, Leslie Bailey [phone] (Electronically Signed - 09/21/2025 13:52) Narrative 09/21/2025 1:52 PM EDT Addendum: ADDENDUM #1 The final pathology results for the stereotactic-guided biopsy performed by Dr. 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 COMMENT: The biopsy shows an atypical cribriform intraductal proliferation. Although it shows features consistent with low grade DCIS, quantitatively it is too scant (two ducts) to establish a definitive diagnosis of DCIS and final diagnosis is deferred to evaluation of the excision specimen. These high risk/borderline malignant results are concordant with imaging. The T clip correlates to the biopsy site. Note multiple additional similar groups of calcifications in the right breast upper outer quadrant. Multiple small groups by up to 5 cm of distance. Biopsy of additional groups will likely be required. RECOMMENDATION: Surgical management recommended. Surgical consultation recommended. Collateral breast MRI. Biopsy of additional groups of calcifications may be required. Follow-up per breast surgery. COMMUNICATION: The patient was contacted and informed of the pathology results and recommendation by the radiologist. The referring health care providers office was contacted and informed of the pathology results and recommendation. Electronically signed by: Steve Patel MD 09/26/2025 12:13 PM [facility] [place] Thank you for referring your patient to us, Steve Patel MD [phone] (Electronically Signed - 09/26/2025 12:13) Original Report: EXAMINATION: MM STEREOTACTIC CORE BIOPSY AND PERCUTANEOUS CLIP PLACEMENT, RIGHT BREAST CLINICAL INFORMATION: Indeterminate right breast calcifications. PROCEDURE: Following a discussion of the risks, benefits and alternatives to the procedure, written informed consent was obtained. A procedure time out using three patient identifiers was performed. COMPARISON: Comparison was made to previous imaging. APPROACH: Superior. TECHNIQUE/FINDINGS: The calcifications were localized using stereotactic guidance. The right breast was prepped in the usual sterile fashion and 1% lidocaine without and with epinephrine was used for local anesthesia. After a small skin incision was made, a 9 G [employer] vacuum-assisted device was advanced to the calcifications. Pre-fire and post- fire images confirmed localization. Multiple core samples were obtained. A MR compatible T-shaped clip was deployed at the biopsy site. SPECIMEN RADIOGRAPH: Specimen radiography confirmed adequate sampling. All needles were removed and hemostasis achieved. POST-PROCEDURE MAMMOGRAM: CC and LM views were obtained. There are scattered areas of fibroglandular density. (ACR BI-RADS breast composition Category b)*. The clip is positioned at the area targeted for biopsy at 9 oclock. Additional group of calcifications is seen anterior to the biopsied group. Pending pathology additional recommendations will be made. Procedure Note Leslie Bailey MD / Steve Patel MD - 09/26/2025 Addendum: ADDENDUM #1 The final pathology results for the stereotactic-guided biopsy performedby Dr. Bailey on 09/21/2025 are: DIAGNOSIS: RIGHT BREAST, CORE BIOPSY AT 9 OCLOCK: Severely atypical ductal hyperplasia, borderline for low grade ductalcarcinoma in situ with associated calcifications, see comment. COMMENT: The biopsy shows an atypical cribriform intraductal proliferation.Although it shows features consistent with low grade DCIS, quantitativelyit is too scant (two ducts) to establish a definitive diagnosis of DCISand final diagnosis is deferred to evaluation of the excision specimen. These high risk/borderline malignant results are concordant withimaging. The T clip correlates to the biopsy site. Note multiple additional similar groups of calcifications in the rightbreast upper outer quadrant. Multiple small groups by up to 5 cmof distance. Biopsy of additional groups will likely be required. RECOMMENDATION: Surgical management recommended. Surgical consultation recommended. Collateral breast MRI. Biopsy of additional groups of calcifications may be required. Follow-upper breast surgery. COMMUNICATION: The patient was contacted and informed of the pathology results andrecommendation by the radiologist. The referring health care providers office was contacted and informed ofthe pathology results and recommendation. Electronically signed by: Steve Patel MD 09/26/2025 12:13 PM EST RPWorkstation: [id number] Thank you for referring your patient to us, Steve Patel MD [phone] (Electronically Signed - 09/26/2025 12:13) Original Report: EXAMINATION: MM STEREOTACTIC CORE BIOPSY AND PERCUTANEOUS CLIP PLACEMENT, RIGHTBREAST CLINICAL INFORMATION: Indeterminate right breast calcifications. PROCEDURE: Following a discussion of the risks, benefits and alternatives to theprocedure, written informed consent was obtained. A procedure time outusing three patient identifiers was performed. COMPARISON: Comparison was made to previous imaging. APPROACH: Superior. TECHNIQUE/FINDINGS: The calcifications were localized using stereotactic guidance. The rightbreast was prepped in the usual sterile fashion and 1% lidocaine withoutand with epinephrine was used for local anesthesia. After a small skinincision was made, a 9 G [employer] vacuum-assisted device was advanced to the calcifications. Pre-fire andpost-fire images confirmed localization. Multiple core samples wereobtained. A MR compatible T-shaped clip was deployed at the biopsy site. SPECIMEN RADIOGRAPH: Specimen radiography confirmed adequate sampling. All needles were removed and hemostasis achieved. POST-PROCEDURE MAMMOGRAM: CC and LM views were obtained. There are scattered areas of fibroglandulardensity. (ACR BI-RADS breast composition Category b)*. The clip ispositioned at the area targeted for biopsy at 9 oclock. Additional groupof calcifications is seen anterior to the biopsied group. Pending pathology additional recommendations will bemade. IMPRESSION: 1. Successful stereotactic core biopsy of indeterminate calcifications inthe right breast. Specimens sent to pathology. 2. Accurate clip deployment. Final recommendations will be made oncepathology has been obtained. 3. Additional group of calcifications is seen anterior to the biopsiedgroup. Pending pathology additional recommendations will be made. Electronically signed by: Leslie Bailey MD 09/21/2025 01:52 PM EDT RPWorkstation: [id number] Thank you for referring your patient to us, Leslie Bailey [phone] (Electronically Signed - 09/21/2025 13:52) us Ruthie Damon MD IMG LEGACY PROCEDURES Edited R esult - Final * MM Breast Biopsy w/ Stereo 1st Lesion - Right (09/21/2025 1:32 PM EDT) Anatomical Region Laterality Modality Breast Right Mammography 09/21/2025 1:00 PM EDT 09/21/2025 1:00 PM EDT Impressions 09/21/2025 1:52 PM EDT 1. Successful stereotactic core biopsy of indeterminate calcifications in the right breast. Specimens sent to pathology. 2. Accurate clip deployment. Final recommendations will be made once pathology has been obtained. 3. Additional group of calcifications is seen anterior to the biopsied group. Pending pathology additional recommendations will be made. Electronically signed by: Leslie Bailey MD 09/21/2025 01:52 PM EDT RP Thank you for referring your patient to us, Leslie Bailey [phone] (Electronically Signed - 09/21/2025 13:52) Narrative 09/21/2025 1:52 PM EDT Addendum: ADDENDUM #1 The final pathology results for the stereotactic-guided biopsy performed by Dr. 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 COMMENT: The biopsy shows an atypical cribriform intraductal proliferation. Although it shows features consistent with low grade DCIS, quantitatively it is too scant (two ducts) to establish a definitive diagnosis of DCIS and final diagnosis is deferred to evaluation of the excision specimen. These high risk/borderline malignant results are concordant with imaging. The T clip correlates to the biopsy site. Note multiple additional similar groups of calcifications in the right breast upper outer quadrant. Multiple small groups by up to 5 cm of distance. Biopsy of additional groups will likely be required. RECOMMENDATION: Surgical management recommended. Surgical consultation recommended. Collateral breast MRI. Biopsy of additional groups of calcifications may be required. Follow-up per breast surgery. COMMUNICATION: The patient was contacted and informed of the pathology results and recommendation by the radiologist. The referring health care providers office was contacted and informed of the pathology results and recommendation. Electronically signed by: Steve Patel MD 09/26/2025 12:13 PM EST RP Thank you for referring your patient to us, Steve Patel MD [phone] (Electronically Signed - 09/26/2025 12:13) Original Report: EXAMINATION: MM STEREOTACTIC CORE BIOPSY AND PERCUTANEOUS CLIP PLACEMENT, RIGHT BREAST CLINICAL INFORMATION: Indeterminate right breast calcifications. PROCEDURE: Following a discussion of the risks, benefits and alternatives to the procedure, written informed consent was obtained. A procedure time out using three patient identifiers was performed. COMPARISON: Comparison was made to previous imaging. APPROACH: Superior. TECHNIQUE/FINDINGS: The calcifications were localized using stereotactic guidance. The right breast was prepped in the usual sterile fashion and 1% lidocaine without and with epinephrine was used for local anesthesia. After a small skin incision was made, a 9 G [employer] vacuum-assisted device was advanced to the calcifications. Pre-fire and post- fire images confirmed localization. Multiple core samples were obtained. A MR compatible T-shaped clip was deployed at the biopsy site. SPECIMEN RADIOGRAPH: Specimen radiography confirmed adequate sampling. All needles were removed and hemostasis achieved. POST-PROCEDURE MAMMOGRAM: CC and LM views were obtained. There are scattered areas of fibroglandular density. (ACR BI-RADS breast composition Category b)*. The clip is positioned at the area targeted for biopsy at 9 oclock. Additional group of calcifications is seen anterior to the biopsied group. Pending pathology additional recommendations will be made. Procedure Note Leslie Bailey MD / Steve Patel MD - 09/26/2025 Addendum: ADDENDUM #1 The final pathology results for the stereotactic-guided biopsy performedby Dr. Bailey on 09/21/2025 are: DIAGNOSIS: RIGHT BREAST, CORE BIOPSY AT 9 OCLOCK: Severely atypical ductal hyperplasia, borderline for low grade ductalcarcinoma in situ with associated calcifications, see comment. COMMENT: The biopsy shows an atypical cribriform intraductal proliferation.Although it shows features consistent with low grade DCIS, quantitativelyit is too scant (two ducts) to establish a definitive diagnosis of DCISand final diagnosis is deferred to evaluation of the excision specimen. These high risk/borderline malignant results are concordant withimaging. The T clip correlates to the biopsy site. Note multiple additional similar groups of calcifications in the rightbreast upper outer quadrant. Multiple small groups by up to 5 cmof distance. Biopsy of additional groups will likely be required. RECOMMENDATION: Surgical management recommended. Surgical consultation recommended. Collateral breast MRI. Biopsy of additional groups of calcifications may be required. Follow-upper breast surgery. COMMUNICATION: The patient was contacted and informed of the pathology results andrecommendation by the radiologist. The referring health care providers office was contacted and informed ofthe pathology results and recommendation. Electronically signed by: Steve Patel MD 09/26/2025 12:13 PM EST RPWorkstation: [id number] Thank you for referring your patient to us, Steve Patel MD [phone] (Electronically Signed - 09/26/2025 12:13) Original Report: EXAMINATION: MM STEREOTACTIC CORE BIOPSY AND PERCUTANEOUS CLIP PLACEMENT, RIGHTBREAST CLINICAL INFORMATION: Indeterminate right breast calcifications. PROCEDURE: Following a discussion of the risks, benefits and alternatives to theprocedure, written informed consent was obtained. A procedure time outusing three patient identifiers was performed. COMPARISON: Comparison was made to previous imaging. APPROACH: Superior. TECHNIQUE/FINDINGS: The calcifications were localized using stereotactic guidance. The rightbreast was prepped in the usual sterile fashion and 1% lidocaine withoutand with epinephrine was used for local anesthesia. After a small skinincision was made, a 9 G [employer] vacuum-assisted device was advanced to the calcifications. Pre-fire andpost-fire images confirmed localization. Multiple core samples wereobtained. A MR compatible T-shaped clip was deployed at the biopsy site. SPECIMEN RADIOGRAPH: Specimen radiography confirmed adequate sampling. All needles were removed and hemostasis achieved. POST-PROCEDURE MAMMOGRAM: CC and LM views were obtained. There are scattered areas of fibroglandulardensity. (ACR BI-RADS breast composition Category b)*. The clip ispositioned at the area targeted for biopsy at 9 oclock. Additional groupof calcifications is seen anterior to the biopsied group. Pending pathology additional recommendations will bemade. IMPRESSION: 1. Successful stereotactic core biopsy of indeterminate calcifications inthe right breast. Specimens sent to pathology. 2. Accurate clip deployment. Final recommendations will be made oncepathology has been obtained. 3. Additional group of calcifications is seen anterior to the biopsiedgroup. Pending pathology additional recommendations will be made. Electronically signed by: Leslie Bailey MD 09/21/2025 01:52 PM EDT RPWorkstation: [id number] Thank you for referring your patient to us, Leslie Bailey [phone] (Electronically Signed - 09/21/2025 13:52) us Ruthie Damon MD IMG MAMMOGRAPHY ORDERABLES Daniel elvira Result - Final * Pathology (09/21/2025 12:00 AM EDT) Report [facility] [id number] CLIA ID [id number] [address] [place] [id number] [phone] Surgical Pathology Report PATIENT NAME: MICHELE MIRANDA [facility] REC NUMBER: [id number] (AGE): 1965 (Age: 59) SPECIMEN NUMBER: [id number] DATE OBTAINED: 09/21/2025 DIAGNOSIS RIGHT BREAST, CORE BIOPSY AT 9 O'CLOCK: SEVERELY ATYPICAL DUCTAL HYPERPLASIA, 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 SEE COMMENT. ok/09/24/2025 Electronically Signed Out MD ALY LIU MD Signout Facility: [address] CLIA #: [id number] COMMENT The biopsy shows an atypical cribriform intraductal proliferation. Although it shows features consistent with low grade DCIS, quantitatively it is too scant (two ducts) to establish a definitive diagnosis of DCIS and final diagnosis is deferred to evaluation of the excision specimen. [id number] Clinical Information and History: Right breast calcifications 9:00 (R92.1) Tissue(s) Submitted: A: STEREO BX RIGHT BREAST 9:00 + CALCS 9G 6 CORES Gross Description: The specimen is received in formalin labeled per the requisition as stereo bx right breast 9:00 9G 6 cores, and consists of a green cassette containing a 2.0 x 1.5 x 0.2 cm aggregate of sims-yellow compressed fatty appearing soft tissues. Additionally within the specimen container are three sims-yellow cylindrical soft tissues, ranging in size from 0.6 x 0.3 cm to 1.2 x 0.3 cm. There is also a 1.0 x 0.9 x 0.2 cm aggregate of sims-yellow irregularly-shaped soft tissues within the specimen container. A portion of each of the tissues is inked orange for patient tissue identification purposes. The specimen is entirely submitted as follows: A1: Aggregate of tissue received in the green cassette A2: Three cylindrical tissues additionally within the specimen container A3: Aggregate of additional free-floating soft tissues within the specimen container Tissue removal time: 1:10 on 09/21/25 Time in formalin: 1:16 on 09/21/25 The specimen is processed the next day. The total fixation time is within 6 - 72 hours. The cold ischemic time is within the required parameters. [facility] 09/21/2025 09/22/2025 7:0 1 AM EDT Comment:STEREO BX RIGHT JOSLYN ST 9:00 + CALCS 9G 6 CORES Leslie Bailey MD PATHOLOGY/CYTOLOGY ORDERABLES Final Result HOSPITAL LAB See Below * Imaging Breast/Bx/Mammo Result (09/15/2025 10:29 AM EDT) Anatomical Region Laterality Modality Other External Provider IMG LEGACY PROCEDURES Final Result * CT ABDOMEN WITHOUT CONTRAST (08/16/2025 11:37 AM EDT) Anatomical Region Laterality Modality Other 08/16/2025 11:3 0 AM EDT 08/16/2025 11:30 AM EDT Narrative 08/21/2025 9:18 AM EDT EXAMINATION: CT ABDOMEN WITHOUT CONTRAST CLINICAL INFORMATION: Acute abdominal pain. COMPARISON: None available. TECHNIQUE: Contiguous axial thin section helical images of the abdomen were performed without contrast. Sagittal and coronal reformatted images were obtained on the technologists workstation. This CT examination was performed using dose optimization techniques as appropriate, variously including the following: *Automated exposure control *Adjustment of mA and/or kV according to patient size (this includes techniques or standardized protocols for targeted exams where dose is matched to indication/reason for exam; i.e. extremities or head) *Use of iterative reconstruction technique DLP: 174.72 FINDINGS: LUNG BASES: No pleural or pericardial effusion. LIVER, GALLBLADDER, AND BILIARY TREE: The noncontrast liver is normal in size and contour. No biliary ductal dilatation is present. The gallbladder is unremarkable with no evidence of radiopaque gallstones, gallbladder wall thickening, or obvious pericholecystic inflammatory changes. PANCREAS: Unremarkable. SPLEEN: Unremarkable. ADRENAL GLANDS: Unremarkable. KIDNEYS AND URETERS: The kidneys are symmetric in size. No hydronephrosis, hydroureter, or calculi seen. GASTROINTESTINAL TRACT: Imaged loops of small and large bowel are not obstructed. ABDOMINAL WALL: No significant hernia is appreciated. LYMPH NODES: No bulky lymphadenopathy. VASCULAR: Normal caliber abdominal aorta. OSSEOUS STRUCTURES: No destructive bone lesions. IMPRESSION: No acute abnormality in the abdomen. Electronically signed by: Prosper Steve MD 08/21/2025 09:18 AM EDT Thank you for referring your patient to us, Prosper Steve MD [phone] (Electronically Signed - 08/21/2025 09:18) Procedure Note Prosper Steve MD - 08/21/2025 EXAMINATION: CT ABDOMEN WITHOUT CONTRAST CLINICAL INFORMATION: Acute abdominal pain. COMPARISON: None available. TECHNIQUE: Contiguous axial thin section helical images of the abdomen were performedwithout contrast. Sagittal and coronal reformatted images were obtained onthe technologists workstation. This CT examination was performed using dose optimization techniques asappropriate, variously including the following: *Automated exposure control *Adjustment of mA and/or kV according to patient size (this includestechniques or standardized protocols for targeted exams where dose ismatched to indication/reason for exam; i.e. extremities or head) *Use of iterative reconstruction technique DLP: 174.72 FINDINGS: LUNG BASES: No pleural or pericardial effusion. LIVER, GALLBLADDER, AND BILIARY TREE: The noncontrast liver is normal insize and contour. No biliary ductal dilatation is present. The gallbladderis unremarkable with no evidence of radiopaque gallstones, gallbladderwall thickening, or obvious pericholecystic inflammatory changes. PANCREAS: Unremarkable. SPLEEN: Unremarkable. ADRENAL GLANDS: Unremarkable. KIDNEYS AND URETERS: The kidneys are symmetric in size. No hydronephrosis,hydroureter, or calculi seen. GASTROINTESTINAL TRACT: Imaged loops of small and large bowel are notobstructed. ABDOMINAL WALL: No significant hernia is appreciated. LYMPH NODES: No bulky lymphadenopathy. VASCULAR: Normal caliber abdominal aorta. OSSEOUS STRUCTURES: No destructive bone lesions. IMPRESSION: No acute abnormality in the abdomen. Electronically signed by: Prosper Steve MD 08/21/2025 09:18 AM EDT RPWorkstation: [id number] Thank you for referring your patient to us, Prosper Steve MD [phone] (Electronically Signed - 08/21/2025 09:18) us Maryuri Sawyer SECONDS INSPECTOR IMG LEGACY PROCEDURES Final Resu lt * MG DX- 2D RIGHT DIAGNOSTIC-RR (07/11/2025 10:07 AM EDT) Anatomical Region Laterality Modality Other 07/11/2025 9:00 AM EDT 07/11/2025 9:00 AM EDT Impressions 07/11/2025 1:45 PM EDT Calcifications right outer upper breast, stereotactic biopsy has been advised. Patient had declined biopsy at this time. Prefers 6 month follow-up. FINAL ASSESSMENT: BI-RADS 4: Suspicious. RECOMMENDATIONS: Biopsy 1. Stereotactic biopsy of calcifications right upper outer breast. 2. If biopsy remains deferred, then 6 month follow-up 2-D mammogram advised. 2. Follow-up 2-D mammogram advised for calcifications right lower inner breast. 3. This addendum was discussed with patient on 09/04/2025 1:15 PM. 4. Recommendation was given to Ellen FRIAS on 09/04/2025 at 2:03pm. Electronically signed by: Krupa Adames MD 09/04/2025 02:17 PM EDT RP Thank you for referring your patient to us, Krupa Adames MD [phone] (Electronically Signed - 09/04/2025 14:17) Copy: RUTHIE DAMON MD [facility]- OB-COPY TECHNICIAN [address] [id number] Original Report: EXAMINATION: RIGHT BREAST DIGITAL DIAGNOSTIC 2-D MAMMOGRAM CLINICAL INFORMATION: Screening call back, calcifications right breast. COMPARISON: Most recent mammogram on 06/22/2025 and priors dating back to 05/13/2006. TECHNIQUE: Computer-aided detection was utilized by the radiologist in the interpretation of this examination. RIGHT diagnostic mammogram with 2-D spot magnification CC/ML views and full- field ML. FINDINGS: There are scattered areas of fibroglandular density (ACR BIRADS density category: b)* Right breast: Magnification views show a few probably benign small groups of punctate calcifications in the upper outer breast middle depth, for which six-month follow-up 2-D mammogram is advised to confirm stability. A separate probably benign group of punctate calcifications in the lower inner breast middle depth was previously biopsy-proven benign with biopsy clip along anterior aspect. Given slight increased number of calcifications, follow-up 2-D mammogram of this group is also advised. Other calcifications are benign. IMPRESSION: 1. Probably benign calcifications right upper outer breast; follow-up 2-D mammogram advised. 2. Probably benign calcifications right lower inner breast; follow-up 2-D mammogram advised. FINAL ASSESSMENT: BI-RADS 3: Probably Benign. RECOMMENDATIONS: Short Interval (6-month) Follow-up Right 2-D diagnostic mammogram The patient was notified of the findings and recommendations at the time of the exam. The patient will receive a lay summary of the results of this breast imaging exam. Lay summaries for mammography examinations will also identify the patients personal breast tissue composition as required by state law. Electronically signed by: Krupa Adames MD 07/11/2025 01:45 PM EDT Thank you for referring your patient to us, Krupa Adames MD [phone] (Electronically Signed - 07/11/2025 13:45) Copy: RUTHIE DAMON MD [facility]- OB-COPY TECHNICIAN [address] [address] Narrative 07/11/2025 1:45 PM EDT Addendum: ADDENDUM #1 Addendum: Request was made to reevaluate calcifications in the right outer upper breast, punctate with linear distribution, which were initially felt to reflect probably benign evolving vascular calcifications or other benign etiology given similar appearance to prior evolving benign calcifications, and therefore 6-month follow-up was advised. However, on further review stereotactic biopsy has now been advised for definitive histology. I discussed this biopsy recommendation with the patient. Patient has declined biopsy at this time and prefers imaging surveillance with 6-month follow-up mammogram. This is reasonable. Will code exam as BI-RADS 4 to document biopsy advised and discussed with patient. Procedure Note Krupa Adames MD - 09/04/2025 Addendum: ADDENDUM #1 Addendum: Request was made to reevaluate calcifications in the right outer upperbreast, punctate with linear distribution, which were initially felt toreflect probably benign evolving vascular calcifications or other benignetiology given similar appearance to prior evolving benign calcifications, and therefore 6-month follow-up wasadvised. However, on further review stereotactic biopsy has now beenadvised for definitive histology. I discussed this biopsy recommendationwith the patient. Patient has declined biopsy at this time and prefers imaging surveillance with 0-[id number] mammogram. This is reasonable. Will code exam as BI-RADS 4 todocument biopsy advised and discussed with patient. IMPRESSION: Calcifications right outer upper breast, stereotactic biopsy has beenadvised. Patient had declined biopsy at this time. Prefers 6 month follow-up. FINAL ASSESSMENT: BI-RADS 4: Suspicious. RECOMMENDATIONS: Biopsy 1. Stereotactic biopsy of calcifications right upper outer breast. 2. If biopsy remains deferred, then 6 month follow-up 2-D mammogramadvised. 2. Follow-up 2-D mammogram advised for calcifications right lower innerbreast. 3. This addendum was discussed with patient on 09/04/2025 1:15 PM. 4. Recommendation was given to Ellen FRIAS on 09/04/2025 at 2:03pm. Electronically signed by: Krupa Adames MD 09/04/2025 02:17 PM EDTRP Thank you for referring your patient to us, Krupa Adames MD [phone] (Electronically Signed - 09/04/2025 14:17) Copy: RUTHIE DAMON MD [facility]- OB-COPY TECHNICIAN [id number] [place] [address] Original Report: EXAMINATION: RIGHT BREAST DIGITAL DIAGNOSTIC 2-D MAMMOGRAM CLINICAL INFORMATION: Screening call back, calcifications right breast. COMPARISON: Most recent mammogram on 06/22/2025 and priors dating back to05/13/2006. TECHNIQUE: Computer-aided detection was utilized by the radiologist in theinterpretation of this examination. RIGHT diagnostic mammogram with 2-D spot magnification CC/ML views andfull-field ML. FINDINGS: There are scattered areas of fibroglandular density (ACR BIRADS densitycategory: b)* Right breast: Magnification views show a few probably benign small groupsof punctate calcifications in the upper outer breast middle depth, forwhich six-month follow-up 2-D mammogram is advised to confirm stability. Aseparate probably benign group of punctate calcifications in the lower inner breast middle depth waspreviously biopsy-proven benign with biopsy clip along anterior aspect.Given slight increased number of calcifications, follow-up 2-D mammogramof this group is also advised. Other calcifications are benign. IMPRESSION: 1. Probably benign calcifications right upper outer breast; follow-up 2- Dmammogram advised. 2. Probably benign calcifications right lower inner breast; follow-up 2- Dmammogram advised. FINAL ASSESSMENT: BI-RADS 3: Probably Benign. RECOMMENDATIONS: Short Interval (6-month) Follow-up Right 2-D diagnosticmammogram The patient was notified of the findings and recommendations at the timeof the exam. The patient will receive a lay summary of the results of this breastimaging exam. Lay summaries for mammography examinations will alsoidentify the patients personal breast tissue composition as required [facility] law. Electronically signed by: Krupa Adames MD 07/11/2025 01:45 PM EDTRP Thank you for referring your patient to us, Krupa Adames MD [phone] (Electronically Signed - 07/11/2025 13:45) Copy: RUTHIE DAMON MD [facility]- OB-COPY TECHNICIAN [address] [place] [address] us Generic Provider IMG LEGACY PROCEDURES Edited Re sult - Final * ThinPrep Pap HPV 16,18/45 Reflex on all Dx (06/02/2023 10:14 AM EDT) 06/02/2023 10:1 4 AM EDT Narrative [facility] - 06/04/2023 8:37 AM EDT To view the final report click the scan hyperlink below. us Ruthie Damon MD LAB AMB PATH/CYTO ORDERABLES F inal Result [facility] [address] [place] [address], from Last 3 Months or Most Recently Relevant to Health Maintenance Insurance Care Teams Transformer Mechanic Relationship Specialty Start Date End Date Maryuri Sawyer NP [address] [place] [id number] PCP - General 06/07/24
--- OUTSIDE RECORDS SUMMARY | 2025-10-02 13:58 | XMS_ITS | Data Portability ---
Author Organization [place] 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 Not available 05/12/2024 13:34:15 08/04/2025 08/04/2025 all breast imaging wnl, in chart pt aware of prior bw results - great progress pt off of zepbound, may note weight gain - focus on healthy lifestyle; if you want to resume medication, notify egfp arodis Not available 08/04/2025 17:01:17 Plan of Treatment Reminders Order Date Submit Date Provider Last Modified By Organization Details Last Modified Time Details Appointments FOLLOW UP LONG 2025 01:30P M Debbie Sawyer APRN Not available Not available Not available Lab CBC w/ auto diff 2024 025 [facility], [address], [address], [place], [address], 06/23/2025 22:36:06 CMP, serum or plasma 2024 025 [facility], [address], [address], [place], [address], 06/23/2025 22:36:04 microalbu min/creat inine, mass ratio, urine 2024 025 [facility], [address] [place] [address], [address], [place], [address], 06/23/2025 22:36:05 HbA1c (hemoglob in A1c), blood [address] [facility], [address] [place] [address], [address], [place], [address], 06/23/2025 22:36:11 TSH, serum or plasma [address] [facility], [address] [place] [address], [address], [place], [address], 06/23/2025 22:36:09 lipid panel, serum [address] [facility], [address] [place] [address], [address], [place], [address], 06/23/2025 22:36:03 C-reactiv e protein, quantitat finn, serum or plasma [address] [facility], [address] [place] [address], [address], [place], [address], 06/23/2025 22:36:07 erythrocy te sedimenta tion rate by leannre n method [address] [facility], [address] [place] [address], [address], [place], [address], 06/23/2025 22:36:06 rf (rheumato id factor), serum 2024 025 [place] [facility], [address] [place] [address], [address], [place], [address], 06/23/2025 22:36:07 NEREIDA (antinucl ear antibodie s) screen, serum [address] [facility], [address], [address], [place], [address], 06/23/2025 22:36:09 ccp (cyclic citrullin ated peptide) igg, serum [address] [facility], [address], [address], [place], [address], 06/23/2025 22:36:08 factor V mutation, blood or tissue [address] [facility], [address], [address], [place], [address], 06/23/2025 22:36:05 vitamin D, 25-hydrox y, total, serum [address] [facility], [address], [address], [place], [address], 06/23/2025 22:36:10 rapid strep group A, throat 2024 025 [facility], [address], [place], [address], 2024 09:36:03 rsv (respirat ory syncytial virus), rapid, nasophary ngeal 2024 025 [facility], [address], [place], [address], 2024 09:36:03 influenza virus A + B and SARS CoV 2 and SARS-rela elvira CoV RNA panel, JORGE+probe , respirato ry specimen 2024 025 [facility], [address], [place], [address], 2024 09:36:03 Referral None recorded. Procedures None recorded. Surgeries None recorded. Imaging CT, abdomen, w/o contrast - acute abd pain (RIGHT UPPER QUADRANT) , ct abd w/o contrast recommend ed 2024 025 [facility] [place], [address] [address], [place], [address], 08/21/2025 09:21:17 Medication Orders amlodipin e 2.5 mg tablet 2024 025 [id number], [address] [place], [address], 08/04/2025 16:19:07 sertralin e 50 mg tablet 2024 025 [id number] [address] [place], [address], 06/15/2025 14:54:45 Zepbound 5 mg/0.5 mL subcutane ous pen injector 2024 025 [id number], [address] [place], [address], 08/04/2025 16:16:08 azithromy reema 250 mg tablet 2024 025 [id number], [address] [place], [address], 2024 09:35:21 erythromy reema 5 mg/gram (0.5 %) eye ointment 2024 025 [facility], [address] [place], [address], 2024 09:36:05 sertralin e 150 mg capsule 2023 024 [facility]/Pharmacy #0084, [address] [place], [address], 05/12/2024 14:32:15 amlodipin e 5 mg tablet [address] [facility]acy #0084, [address] [place] [address], [place], [address], 06/03/2024 10:26:27 Patient TargetsNo targets recorded. Patient InstructionsNo instructions recorded. Reason for Referral None Reported. Results Created Date Observation Date Name Description Value Unit Range Abnormal Flag Note LastModifiedBy Organization Detail LastModifiedTime 12/12/19 25 2024 influ radhika virus A + B and SARS CoV 2 and SARS- relat ed CoV RNA panel , JORGE+p robe, respi rator y speci men Influenza A negati ve Not Available [facility] [address], [place], [address], 2024 09:34:17 12/12/19 25 2024 influ radhika virus A + B and SARS CoV 2 and SARS- relat ed CoV RNA panel , JORGE+p robe, respi rator y speci men Influenza B negati ve Not Available [facility] [address], [place], [address], 2024 09:34:17 12/12/19 25 2024 influ radhika virus A + B and SARS CoV 2 and SARS- relat ed CoV RNA panel , JORGE+p robe, respi rator y speci men Influenza A+B negati ve Not Available [facility] [address], [place], [address], 2024 09:34:17 12/12/19 25 2024 influ radhika virus A + B and SARS CoV 2 and SARS- relat ed CoV RNA panel , JORGE+p robe, respi rator y speci men COVID negati ve Not Available [facility] [address], [place], [address], 2024 09:34:17 12/12/19 25 2024 rsv (resp irato ry syncy tial virus ), rapid , nasop haryn geal RSV negati ve Not Available [facility] [address], [place], [address], 2024 09:33:18 12/12/19 25 2024 rapid strep group A, throa t Strep negati ve Not Available [facility] [address], [place], [address], 2024 09:32:25 06/20/20 25 06/23/2025 LIPID PANEL WITH REFLE X TO DIREC T LDL cholesterol, total 156 mg/dL <200 normal Not Available [facility] [address], [address], 06/23/2025 22:36:03 06/20/20 25 06/23/2025 LIPID PANEL WITH REFLE X TO DIREC T LDL HDL cholesterol 58 mg/dL > or = 50 normal Not Available [facility] [address], [address], 06/23/2025 22:36:03 06/20/20 25 06/23/2025 LIPID PANEL WITH REFLE X TO DIREC T LDL triglyceride s 105 mg/dL <150 normal Not Available [facility] [address], [address], 06/23/2025 22:36:03 06/20/20 25 06/23/2025 LIPID PANEL WITH REFLE X TO DIREC T LDL LDL-choleste rol 79 mg/dL _(luis c) normal Refer ence range : <100 Samara able range <100 mg/dL for prima ry preve ntion ; <70 mg/dL for patie nts with CHD or diabe tic patie nts with > or = 2 CHD risk facto rs. LDL-C is now calcu lated using the Joan n-Hop kins calcu ya n, which is a valid ated novel metho d sethi raphael judy r accur acy than the Fried rivas equat ion in the estim ation of LDL-C . Joan olivas SS et al. TIFFANIE. 2013; 310(1 9): 2061- 2068 (http ://ed ucati on.[employer]. com/f aq/FA Q164) Not Available [facility] [place] [facility] [address], [place], [address], 06/23/2025 22:36:03 06/20/20 25 06/23/2025 LIPID PANEL WITH REFLE X TO DIREC T LDL chol/HDLC ratio 2.7 (calc ) <5.0 normal Not Available [facility] [place] [facility] [address], [place], [address], 06/23/2025 22:36:03 06/20/20 25 06/23/2025 LIPID PANEL WITH REFLE X TO DIREC T LDL non HDL cholesterol 98 mg/dL _(luis c) <130 normal For patie nts with diabe morgan plus 1 major ASCVD risk facto r, treat ing to a non-H DL-C goal of <100 mg/dL (LDL- C of <70 mg/dL ) is consi dered a thera peuti c optio n. Not Available [facility] [place] [facility] [address], [place], [address], 06/23/2025 22:36:03 06/20/20 25 06/23/2025 COMPR EHENS FINN METAB OLIC PANEL glucose 101 mg/dL 65-99 high Fasti ng refer ence inter farzana For someo ne witho ut known diabe morgan, a gluco se value betwe en 100 and 125 mg/dL is consi stent with predi abete s and shoul d be confi rmed with a follo w-up test. Not Available [facility] [place] [facility] [address], [place], [address], 06/23/2025 22:36:04 06/20/20 25 06/23/2025 COMPR EHENS FINN METAB OLIC PANEL urea nitrogen (BUN) 12 mg/dL 7-25 normal Not Available [facility] [address], [place], [address], 06/23/2025 22:36:04 06/20/20 25 06/23/2025 COMPR EHENS FINN METAB OLIC PANEL creatinine 0.88 mg/dL 0.50-1 .05 normal Not Available [facility] [address], [place], [address], 06/23/2025 22:36:04 06/20/20 25 06/23/2025 COMPR EHENS FINN METAB OLIC PANEL eGFR 75 mL/mi n/1.7 3m2 > or = 60 normal Not Available [facility] [address], [place], [address], 06/23/2025 22:36:04 06/20/20 25 06/23/2025 COMPR EHENS FINN METAB OLIC PANEL BUN/creatini ne ratio SEE NOTE: (calc ) 6-22 Not Repor elvira: BUN and Creat inine are withi n refer ence range . Not Available [facility] [address], [place], [address], 06/23/2025 22:36:04 06/20/20 25 06/23/2025 COMPR EHENS FINN METAB OLIC PANEL sodium 142 mmol/ L 135-14 6 normal Not Available [facility] [address], [place], [address], 06/23/2025 22:36:04 06/20/20 25 06/23/2025 COMPR EHENS FINN METAB OLIC PANEL potassium 4.3 mmol/ L 3.5-5. 3 normal Not Available [facility] [place] [facility] [address], [place], [address], 06/23/2025 22:36:04 06/20/20 25 06/23/2025 COMPR EHENS FINN METAB OLIC PANEL chloride 107 mmol/ L 98-110 normal Not Available [facility] [address], [place], [address], 06/23/2025 22:36:04 06/20/20 25 06/23/2025 COMPR EHENS FINN METAB OLIC PANEL carbon dioxide 27 mmol/ L 20-32 normal Not Available [facility] [address], [place], [address], 06/23/2025 22:36:04 06/20/20 25 06/23/2025 COMPR EHENS FINN METAB OLIC PANEL calcium 9.2 mg/dL 8.6-10 .4 normal Not Available [facility] [address], [place], [address], 06/23/2025 22:36:04 06/20/20 25 06/23/2025 COMPR EHENS FINN METAB OLIC PANEL protein, total 6.4 g/dL 6.1-8. 1 normal Not Available [facility] [address], [place], [address], 06/23/2025 22:36:04 06/20/20 25 06/23/2025 COMPR EHENS FINN METAB OLIC PANEL albumin 4.2 g/dL 3.6-5. 1 normal Not Available [facility] [address], [place], [address], 06/23/2025 22:36:04 06/20/20 25 06/23/2025 COMPR EHENS FINN METAB OLIC PANEL globulin 2.2 g/dL_ (calc ) 1.9-3. 7 normal Not Available [facility] [address], [place], [address], 06/23/2025 22:36:04 06/20/20 25 06/23/2025 COMPR EHENS FINN METAB OLIC PANEL albumin/glob ulin ratio 1.9 (calc ) 1.0-2. 5 normal Not Available [facility] [address], [place], [address], 06/23/2025 22:36:04 06/20/20 25 06/23/2025 COMPR EHENS FINN METAB OLIC PANEL bilirubin, total 0.4 mg/dL 0.2-1. 2 normal Not Available [facility] [address], [place], [address], 06/23/2025 22:36:04 06/20/20 25 06/23/2025 COMPR EHENS FINN METAB OLIC PANEL alkaline phosphatase 39 U/L 37-153 normal Not Available [facility] [address], [place], [address], 06/23/2025 22:36:04 06/20/20 25 06/23/2025 COMPR EHENS FINN METAB OLIC PANEL AST 14 U/L 10-35 normal Not Available [facility] [address], [place], [address], 06/23/2025 22:36:04 06/20/20 25 06/23/2025 COMPR EHENS FINN METAB OLIC PANEL ALT 12 U/L 6-29 normal Not Available [facility] [address], [place], [address], 06/23/2025 22:36:04 06/20/20 25 06/23/2025 ALBUM IN, RANDO M URINE W/CRE ATINI NE creatinine, random urine 165 mg/dL 20-275 normal Not Available [facility] [address] [place], [address], 06/23/2025 22:36:05 06/20/20 25 06/23/2025 ALBUM IN, RANDO M URINE W/CRE ATINI NE albumin, urine 0.6 mg/dL see note: normal Refer ence Range : Refer ence Range Not estab lishe d Not Available [facility] [place] [facility] [address] [place], [address], 06/23/2025 22:36:05 06/20/20 25 06/23/2025 ALBUM IN, RANDO M URINE W/CRE ATINI NE albumin/crea tinine ratio, random urine 4 mg/g_ creat <30 normal The ADA defin es abnor malit ies in album in excre tion as follo ws: Album inuri a Categ ory Resul t (mg/g creat inine ) Guillermina l to Mildl y incre ased <30 Moder ately incre ased 30-29 9 Sever roberth incre ased > OR = 300 The ADA recom mends that at least two of three speci mens colle cted withi n a 3-6 month perio d be abnor mal befor e consi panchito g a patie nt to be withi n a diagn ostic categ ory. Not Available [facility] [address] [place], [address], 06/23/2025 22:36:05 06/20/20 25 06/23/2025 FACTO R V (LEID EN) MUTAT ION SOREN SIS factor V (leiden) mutation NEGATI VE FACTO R V LEIDE N (R506 Q) VARIA NT NOT DETEC ELVIRA Not Available [facility] [place] [facility] [address] [place], [address], 06/23/2025 22:36:05 06/20/20 25 06/23/2025 FACTO R V (LEID EN) MUTAT ION SOREN SIS interpretati on SEE BELOW INTER PRETA TION: This indiv idual is negat finn (norm al) for the Facto r V Leide n (R506 Q) varia nt in the Facto r V gene. Incre ased risk of throm bophi belinda can be cause d by a varie ty of philipp ic and non-g eneti c facto rs not scree rani for by this assay . Labor atory testi ng super vised and resul ts monit ored by Choco Briones, Ph.D. , FACMG , HCLD, MB. VARIA NT SOREN SIS: The Facto r V Leide n (R506 Q) varia nt [[id number] .2:c. 1601G >A (p.R5 34Q)] in the Facto r V gene is one of the most commo n cause s of inher ited throm bophi belinda. This varia nt cause s resis tance to degra datio n of activ ated Facto r V prote in by activ ated Prote in C (APC) . The Facto r V Leide n (R506 Q) varia nt is detec elvira by ampli ficat ion of the selec elvira regio n of the Facto r V gene by polym erase chain react ion (PCR) and fluor escen t probe hybri dizat ion to the targe elvira regio n, follo wed by end-p oint soren sis with a real time PCR syste m. Altho ugh rare, false posit finn or false negat finn resul ts may occur . All resul ts shoul d be inter prete d in charly xt of clini luis findi ngs, relev ant histo ry, and other labor atory data. Healt h care provi ders, pleas e conta ct your local [facility] [place] or call [phone] ([phone]) for mj tance with inter preta tion of these resul ts. This test was devel oped and its soren tical perfo rmanc e howie cteri stics have been deter mined by [facility] [employer] Massimo Nunez trannilda . It has not been clear ed or appro jw by the FDA. This assay has been valid ated pursu ant to the CLIA regul ation s and is used for clini luis purpo ses. Not Available [facility] [place] [facility] [address] [place], [place], [address], 06/23/2025 22:36:05 06/20/20 25 06/23/2025 SED RATE BY MODIF IED WESTE RGREN sed rate by modified westergren 14 mm/h < or = 30 normal Not Available [facility] [place] [facility] [address] [place], [place], [address], 06/23/2025 22:36:06 06/20/20 25 06/23/2025 CBC (INCL UDES DIFF/ PLT) white blood cell count 4.4 thous and/u L 3.8-10 .8 normal Not Available [facility] [place] [facility] [address], [place], [address], 06/23/2025 22:36:06 06/20/20 25 06/23/2025 CBC (INCL UDES DIFF/ PLT) red blood cell count 4.39 pina on/uL 3.80-5 .10 normal Not Available [facility] [place] [facility] [address], [place], [address], 06/23/2025 22:36:06 06/20/20 25 06/23/2025 CBC (INCL UDES DIFF/ PLT) hemoglobin 12.8 g/dL 11.7-1 5.5 normal Not Available [facility] [place] [facility] [address], [place], [address], 06/23/2025 22:36:06 06/20/20 25 06/23/2025 CBC (INCL UDES DIFF/ PLT) hematocrit 40.1 % 35.0-4 5.0 normal Not Available [facility] [place] [facility] [address], [place], [address], 06/23/2025 22:36:06 06/20/20 25 06/23/2025 CBC (INCL UDES DIFF/ PLT) MCV 91.3 fL 80.0-1 00.0 normal Not Available [facility] [place] [facility] [address] [place], [place], [address], 06/23/2025 22:36:06 06/20/20 25 06/23/2025 CBC (INCL UDES DIFF/ PLT) MCH 29.2 pg 27.0-3 3.0 normal Not Available [facility] [place] [facility] [address] [place], [place], [address], 06/23/2025 22:36:06 06/20/20 25 06/23/2025 CBC (INCL UDES DIFF/ PLT) MCHC 31.9 g/dL 32.0-3 6.0 low For adult s, a sligh t decre ase in the calcu lated MCHC value (in the range of 30 to 32 g/dL) is most likel y not clini román signi fican t; milad er, it shoul d be inter prete d with cauti on in [facility] n with other red cell stephan eters and the patie nt's clini luis condi tion. Not Available [facility] [place] [facility] [address] [place], [place], [address], 06/23/2025 22:36:06 06/20/20 25 06/23/2025 CBC (INCL UDES DIFF/ PLT) RDW 13.7 % 11.0-1 5.0 normal Not Available [facility] [place] [facility] [address] [place], [place], [address], 06/23/2025 22:36:06 06/20/20 25 06/23/2025 CBC (INCL UDES DIFF/ PLT) platelet count 140 thous and/u L 140-40 0 normal Not Available [facility] [place] [facility] [address] [place], [place], [address], 06/23/2025 22:36:06 06/20/20 25 06/23/2025 CBC (INCL UDES DIFF/ PLT) MPV 14.7 fL 7.5-12 .5 high Not Available [facility] [place] [facility] [address], [place], [address], 06/23/2025 22:36:06 06/20/20 25 06/23/2025 CBC (INCL UDES DIFF/ PLT) absolute neutrophils 2169 cells /uL 1500-7 800 normal Not Available [facility] [place] [facility] [address], [place], [address], 06/23/2025 22:36:06 06/20/20 25 06/23/2025 CBC (INCL UDES DIFF/ PLT) absolute lymphocytes 1712 cells /uL 850-39 00 normal Not Available [facility] [place] [facility] [address], [place], [address], 06/23/2025 22:36:06 06/20/20 25 06/23/2025 CBC (INCL UDES DIFF/ PLT) absolute monocytes 290 cells /uL 200-95 0 normal Not Available [facility] [place] [facility] [address], [place], [address], 06/23/2025 22:36:06 06/20/20 25 06/23/2025 CBC (INCL UDES DIFF/ PLT) absolute eosinophils 189 cells /uL 15-500 normal Not Available [facility] [place] [facility] [address], [place], [address], 06/23/2025 22:36:06 06/20/20 25 06/23/2025 CBC (INCL UDES DIFF/ PLT) absolute basophils 40 cells /uL 0-200 normal Not Available [facility] [place] [facility] [address], [place], [address], 06/23/2025 22:36:06 06/20/20 25 06/23/2025 CBC (INCL UDES DIFF/ PLT) neutrophils 49.3 % normal Not Available [facility] [address], [place], [address], 06/23/2025 22:36:06 06/20/20 25 06/23/2025 CBC (INCL UDES DIFF/ PLT) lymphocytes 38.9 % normal Not Available [facility] [address], [place], [address], 06/23/2025 22:36:06 06/20/20 25 06/23/2025 CBC (INCL UDES DIFF/ PLT) monocytes 6.6 % normal Not Available [facility] [address], [place], [address], 06/23/2025 22:36:06 06/20/20 25 06/23/2025 CBC (INCL UDES DIFF/ PLT) eosinophils 4.3 % normal Not Available [facility] [address], [place], [address], 06/23/2025 22:36:06 06/20/20 25 06/23/2025 CBC (INCL UDES DIFF/ PLT) basophils 0.9 % normal Not Available [facility] [address], [place], [address], 06/23/2025 22:36:06 06/20/20 25 06/23/2025 RHEUM ATOID FACTO R rheumatoid factor <10 IU/mL <14 normal Not Available [facility] [address], [place], [address], 06/23/2025 22:36:07 06/20/20 25 06/23/2025 C-PEYTON CTIVE PROTE IN C-reactive protein 5.6 mg/L <8.0 normal Not Available [facility] [address], [place], [address], 06/23/2025 22:36:07 06/20/20 25 06/23/2025 CYCLI C CITRU LLINA ELVIRA PEPTI DE (CCP) AB (IGG) cyclic citrullinate d peptide (ccp) Ab (IgG) <16 units normal Refer ence Range Negat finn: <20 Weak Posit finn: 20-39 Moder ate Posit finn: 40-59 Stron g Posit finn: >59 Not Available [facility] [place] [facility] [address], [place], [address], 06/23/2025 22:36:08 06/20/2006/23/2025 NEREIDA MULTI PLEX W/REF YANETH 11 AB CASCA DE NEREIDA screen, immunoassay NEGATI VE negati ve normal A negat finn NEREIDA Multi plex indic ates the absen ce of detec table antib odies to compo nent soren morgan consi sting of doubl e stran ded DNA (dsDN A), chrom atin, ribon ucleo prote in (TRAFFIC CONTROL TECHNICIAN) , [place] /TRAFFIC CONTROL TECHNICIAN (Sm/R COMMERCIAL LINES ACCOUNT EXECUTIVE), [place] (Sm), SS-A, SS-B, Effie-1, centr omere B, Scl-7 0 and ribos omal P. A negat finn resul t shoul d be inter prete d in the charly xt of the clini luis and labor atory findi ngs and does not rule out autoi mmune disea se howie cteri zed by other autoa ntibo dy speci ficit ies such as rheum atoid arthr itis, autoi mmune hepat itis, prima ry bilia ry cirrh osis, autoi mmune thyro iditi s, Sonya on's disea se, perni cious anemi a, autoi mmune neuro pathi es, vascu litis , shreyas c disea se, and bullo us disea se. For addit ional infor margarita medina e refer to http: //[email or web address] olivas.Justus stDia gnost ics.c om/fa q/FAQ 177 (This link is being provi ded for infor carol nal/ educa sophia l purpo ses only. ) Not Available [facility] [place] [facility] [address], [place], [address], 06/23/2025 22:36:09 06/20/20 25 06/23/2025 TSH TSH 2.39 mIU/L 0.40-4 .50 normal Not Available [facility] [place] [facility] [address], [place], [address], 06/23/2025 22:36:09 06/20/20 25 06/23/2025 VITAM IN D,25- OH,TO ABDIRIZAK,I A vitamin D,25-oh,tota l,ia 48 NG/mL 30-100 normal Vitam in D Statu s 25-OH Vitam in D: Defic iency : <20 ng/mL Insuf ficie ncy: 20 - 29 ng/mL Optim al: > or = 30 ng/mL For 25-OH Vitam in D testi ng on patie nts on D2-lomeli pplem entat ion and patie nts for whom quant itati on of D2 and D3 fract ions is requi red, the [facility](TM ) 25-OH VIT D, (D2,D 3), LC/MS /MS is recom trudy d: order code 06628 (arthur ents >2yrs ). See Note 1 Note 1 For addit ional infor margarita medina refer to http: //cynthia [place] gnost ics.c om/fa q/FAQ 199 (This link is being provi ded for infor matio nal/ educa sophia l purpo ses only. ) Not Available [facility] [place] [facility] [address], [place], [address], 06/23/2025 22:36:10 06/20/20 25 06/23/2025 HEMOG LOBIN A1C hemoglobin A1C 5.6 % <5.7 normal For the purpo se of scree darren for the prese nce of diabe morgan: <5.7% Consi stent with the absen ce of diabe morgan 5.7-6 .4% Consi stent with incre ased risk for diabe morgan (pred iabet es) > or =6.5% Consi stent with diabe morgan This assay resul t is consi stent with a decre ased risk of diabe morgan. Curre ntly, no conse nsus exist s betzaida lim use of hemog lobin A1c for diagn osis of diabe morgan in child elizabeth. Accor ding to Ameri can Diabe morgan Assoc iatio n (ADA) guide lines , hemog lobin A1c <7.0% repre sents optim al contr ol in non-p regna nt diabe tic patie nts. Diffe rent metri cs may apply to speci fic patie nt popul ation s. [facility] in Diabe morgan(A DA). Not Available [facility] [place] [facility] [address] [place] [address] Chat[address], [place], [address], 06/23/2025 22:36:11 09/07/20 24 09/26/2020 elect rocar diogr am No observ ation record ed. [email or web address] Not Available 2023 16:31:02 09/07/20 24 11/03/2022 elect rocar diogr am No observ ation record ed. [email or web address] Not Available 2023 16:31:05 09/07/20 24 09/22/2020 imagi ng/di agnos tic resul t No observ ation record ed. [email or web address] Not Available 2023 16:31:18 09/07/20 24 08/11/2023 imagi ng/di agnos tic resul t No observ ation record ed. [email or web address] Not Available 2023 16:31:19 09/07/20 24 09/22/2020 imagi ng/di agnos tic resul t No observ ation record ed. [email or web address] Not Available 2023 16:31:21 09/07/20 24 08/11/2023 imagi ng/di agnos tic resul t No observ ation record ed. [email or web address] Not Available 2023 16:31:21 09/07/20 24 08/11/2023 imagi ng/di dave griffin resul t No observ ation record ed. [email or web address] Not Available 2023 16:31:25 06/26/20 25 06/22/2025 MAMMO , scree darren, tomos ynthe sis, bilat eral EXAMIN ATION: SCREEN ING DIGITA L BREAST TOMOSY NTHESI S, BILATE RAL CLINIC AL INFORM ATION: Routin e annual screen ing mammog katt. COMPAR GAYLE: Most recent mammog katt on 2022 and priors dating back to 006. TECHNI QUE: Comput er-aid ed detect ion was utiliz ed by the radiol ogist in the interp retati on of this examin ation. 3D digita l tomosy nthesi s mammog katt using standa rd projec tions. FINDIN GS: There are scatte red areas of fibrog landul ar densit y (ACR BIRADS densit y catego ry: b)* Right breast : New calcif icatio ns 9:00 middle to sales center manager ior depth. Increa sed calcif icatio ns lower inner breast , anteri or to middle depth, with biopsy clip anteri elyse. Additi onal imagin g advise d with diagno stic 2-D magnif icatio n views. Left breast : No mammog raphic findin gs of malign marcello. No signif icant change compar ed to prior exams. IMPRES HAKEEM: Calcif icatio ns right breast at 9:00 and right lower inner breast , requir e additi onal imagin g. FINAL ASSESS MENT: BI-RAD S 0: Incomp lete: Need Additi onal Imagin g Evalua tion. RECOMM ENDATI ONS: Right diagno stic mammog katt. Recomm end right 2-D spot magnif icatio n CC/ML views and 2-D full-f ield ML. The patien t will receiv e a lay summar y of the result s of this breast imagin g exam. Lay summar ies for mammog danna examin ations will also identi fy the patien ts person al breast tissue compos ition as requir ed by state law. Electr onical ly signed by: Gabriella alexander MD 2024 01:06 PM EDT RP Workst ation: [id number] Thank you for referr ing your patien t to us, Gabriella alexander MD [phone] (Elect shruti matias Signed - 2024 13:06) Copy: RUTHIE NEAL PHYSIC IANS- OB-FIRST AID DIRECTOR [facility] [place] [address] [place] [address] [phone] DEBBIE SAWYER MD [facility] [address] [facility] [place] [address] [phone] [facility] ([facility]) [address] [facility] [address], [place], [address], 08/04/2025 16:51:56 07/11/20 25 07/11/2025 mg DX- 2D right diagn ostic -rr EXAMIN ATION: RIGHT BREAST DIGITA L DIAGNO STIC 2-D MAMMOG KATT CLINIC AL INFORM ATION: Screen ing call back, calcif icatio ns right breast . COMPAR GAYLE: Most recent mammog katt on 025 and priors dating back to 006. TECHNI QUE: Comput er-aid ed detect ion was utiliz ed by the radiol ogist in the interp retati on of this examin ation. RIGHT diagno stic mammog katt with 2-D spot magnif icatio n CC/ML views and full-f ield ML. FINDIN GS: There are scatte red areas of fibrog landul ar densit y (ACR BIRADS densit y catego ry: b)* Right breast : Magnif icatio n views show a few probab ly benign small groups of puncta te calcif icatio ns in the upper outer breast middle depth, for which six-mo nth follow -up 2-D mammog katt is advise d to paul graves. A separa te probab ly benign group of puncta te calcif icatio ns in the lower inner breast middle depth was previo usly biopsy -prove n benign with biopsy clip along anteri or aspect . Given slight increa sed number of calcif icatio ns, follow -up 2-D mammog katt of this group is also advise d. Other calcif icatio ns are benign . IMPRES HAKEEM: 1. Probab ly benign calcif icatio ns right upper outer breast ; follow -up 2-D mammog katt advise d. 2. Probab ly benign calcif icatio ns right lower inner breast ; follow -up 2-D mammog katt advise d. FINAL ASSESS MENT: BI-RAD S 3: Probab ly Benign . RECOMM ENDATI ONS: Short Interv al (-thu) Follow -up Right 2-D diagno stic mammog katt The patien t was notifi ed of the findin gs and recomm endati ons at the time of the exam. The patien t will receiv e a lay summar y of the result s of this breast imagin g exam. Lay summar ies for mammog danna examin ations will also identi fy the patien ts person al breast tissue compos ition as requir ed by state law. Electr onical ly signed by: Gabriella alexander MD 2024 01:45 PM EDT RP Workst ation: [id number] Thank you for referr ing your patien t to us, Gabriella alexander MD [phone] (Elect shruti matias Signed - 2024 13:45) Copy: RUTHIE NEAL [facility] IANS- OB-FIRST AID DIRECTOR [facility] [place] [address] [place] [address] [phone] [facility] ([facility] [place]) [address] [address], [place], [address], 08/04/2025 16:51:52 08/21/20 25 08/16/2025 CT, abdom en, w/o contr ast EXAMIN ATION: CT ABDOME N WITHOU T CONTRA ST CLINIC AL INFORM ATION: Acute abdomi nal pain. COMPAR GAYLE: None availa ble. TECHNI QUE: Contig uous axial thin sectio n helica l images of the abdome n were perfor med withou t contra st. Sagitt al and mejia l reform atted images were obtain ed on the techno logist s workst [facility]. [facility] was perfor med using dose optimi zation techni ques as approp riate, variou sly includ ing the follow ing: *Autom ated exposu re contro l *Adjus tment of mA and/or kV accord ing to patien t size (this includ es techni ques or standa rdized protoc ols for target ed exams where dose is matche d to indica tion/r chantell for exam; i.e. extrem ities or head) *Use of iterat finn recons tructi on techni que DLP: 174.72 FINDIN GS: LUNG BASES: No pleura l or perica rdial effusi on. LIVER, GALLBL ADDER, AND BILIAR Y TREE: The noncon trast liver is normal in size and contou r. No biliar y ductal dilata tion is presen t. The gallbl adder is unrema rkable with no eviden ce of radiop aque gallst ones, gallbl adder wall thicke darren, or obviou s perich olecys tic inflam matory change s. PANCRE : Unrema rkable . SPLEEN : Unrema rkable . ADRENA L GLANDS : Unrema rkable . KIDNEY S AND URETER S: The kidney s are symmet aletha in size. No hydron ephros is, hydrou reter, or calcul i seen. GASTRO INTEST INAL TRACT: Imaged loops of small and large bowel are not obstru cted. ABDOMI NAL WALL: No signif icant hernia is apprec iated. LYMPH NODES: No bulky lympha denopa thy. VASCUL AR: Normal calibe r abdomi nal aorta. OSSEOU S STRUCT URES: No destru ctive bone lesion s. IMPRES HAKEEM: No acute abnorm ality in the abdome n. Electr onical ly signed by: Prosper alcazar MD 2024 09:18 AM EDT RP [facility]st [facility] [id number] Thank you for referr ing your patien t to us, Prosper alcazar MD [phone] (Elect shruti lllesley Signed - 2024 09:18) [facility] ([facility]) [address] [address], [place], [address], 08/21/2025 10:46:21 09/04/20 25 07/11/2025 mg DX- 2D right diagn ostic -rr Addend um: ADDEND UM #1 Addend um: Reques t was made to reeval uate calcif icatio ns in the right outer upper breast , puncta te with linear distri bution , which were initia lly felt to reflec t probab ly benign evolvi ng vascul ar calcif icatio ns or other benign etiolo gy given simila r appear ance to prior evolvi ng benign calcif icatio ns, and theref ore 6-samuel h follow -up was advise d. Dionisio alcazar on furthe r review stereo tactic biopsy has now been advise d for defini tive histol ogy. I discus sed this biopsy recomm endati on with the perla langston. Perla langston has declin ed biopsy at this time and prefer s imagin g survei llance with 6-samuel h follow -up mammog katt. This is reason able. Will code exam as BI-RAD S 4 to docume nt biopsy advise d and discus sed with perla langston. IMPRES HAKEEM: Calcif icatio ns right outer upper breast , stereo tactic biopsy has been advise d. Perla langston had declin ed biopsy at this time. Prefer s 6 month follow -up. FINAL ASSESS MENT: BI-RAD S 4: Suspic ious. RECOMM ENDATI ONS: Biopsy 1. Stereo tactic biopsy of calcif icatio ns right upper outer breast . 2. If biopsy remain s deferr ed, then 6 month follow -up 2-D mammog katt advise d. 2. Follow -up 2-D mammog katt advise d for calcif icatio ns right lower inner breast . 3. This addend um was discus sed with perla langston on 2024 1:15 PM. 4. Recomm endati on was given to Ellen FRIAS on 2024 at 2:03pm . Electr onical ly signed by: Gabriella alexander MD 2024 02:17 PM EDT RP Workst ation: [id number] Thank you for referr ing your patien t to us, Gabriella alexander, [phone] (Keshia matias Signed - 2024 14:17) Copy: RUTHIE NEAL PHYS[facility] IANS- OB-FIRST AID DIRECTOR [facility] [place] [address] [place] [address] [phone] Origin al Report : EXAMIN ATION: RIGHT BREAST DIGITA L DIAGNO STIC 2-D MAMMOG KATT CLINIC AL INFORM ATION: Screen ing call back, calcif icatio ns right breast . COMPAR GAYLE: Most recent mammog katt on 025 and priors dating back to 006. TECHNI QUE: Comput er-aid ed detect ion was utiliz ed by the radiol ogist in the interp retati on of this examin ation. RIGHT diagno stic mammog katt with 2-D spot magnif icatio n CC/ML views and full-f ield ML. FINDIN GS: There are scatte red areas of fibrog landul ar densit y (ACR BIRADS densit y catego ry: b)* Right breast : Magnif icatio n views show a few probab ly benign small groups of puncta te calcif icatio ns in the upper outer breast middle depth, for which six-mo nth follow -up 2-D mammog katt is advise d to paul graves. A separa te probab ly benign group of puncta te calcif icatio ns in the lower inner breast middle depth was previo usly biopsy -prove n benign with biopsy clip along anteri or aspect . Given slight increa sed number of calcif icatio ns, follow -up 2-D mammog katt of this group is also advise d. Other calcif icatio ns are benign . IMPRES HAKEEM: 1. Probab ly benign calcif icatio ns right upper outer breast ; follow -up 2-D mammog katt advise d. 2. Probab ly benign calcif icatio ns right lower inner breast ; follow -up 2-D mammog katt advise d. FINAL ASSESS MENT: BI-RAD S 3: Probab ly Benign . RECOMM ENDATI ONS: Short Interv al (6-mon ) Follow -up Right 2-D diagno stic mammog katt The patien t was notifi ed of the findin gs and recomm endati ons at the time of the exam. The patien t will receiv e a lay summar y of the result s of this breast imagin g exam. Lay summar ies for mammog danna examin ations will also identi fy the patien ts person al breast tissue compos ition as requir ed by state law. Electr onical ly signed by: Gabriella alexander MD 2024 01:45 PM EDT RP Workst ation: [id number] Thank you for referr ing your patien t to us, Gabriella alexander MD [phone] (Elect shruti matias Signed - 2024 13:45) Copy: RUTHIE NEAL [facility]YS[facility] IANS- OB-FIRST AID DIRECTOR [facility] [place] [address] [place] [address] [phone] [facility] ([facility]) [address] [facility] [address], [address], 09/04/2025 15:13:24 Result Notes Documentation Provider Name and Address Organization Details Recorded Time Mammo, Screening, Tomosynthesis, Bilateral : EXAMINATION: SCREENING DIGITAL BREAST TOMOSYNTHESIS, BILATERAL CLINICAL INFORMATION: Routine annual screening mammogram. COMPARISON: Most recent mammogram on 11/03/2023 and priors dating back to 05/13/2006. TECHNIQUE: Computer-aided detection was utilized by the radiologist in the interpretation of this examination. 3D digital tomosynthesis mammogram using standard projections. FINDINGS: There are scattered areas of fibroglandular density (ACR BIRADS density category: b)* Right breast: New calcifications 9:00 middle to posterior depth. Increased calcifications lower inner breast, anterior to middle depth, with biopsy clip anteriorly. Additional imaging advised with diagnostic 2-D magnification views. Left breast: No mammographic findings of malignancy. No significant change compared to prior exams. IMPRESSION: Calcifications right breast at 9:00 and right lower inner breast, require additional imaging. FINAL ASSESSMENT: BI-RADS 0: Incomplete: Need Additional Imaging Evaluation. RECOMMENDATIONS: Right diagnostic mammogram. Recommend right 2-D spot magnification CC/ML views and 2-D full-field ML. The patient will receive a lay summary of the results of this breast imaging exam. Lay summaries for mammography examinations will also identify the patients personal breast tissue composition as required by state law. Electronically signed by: Krupa Adames MD 06/26/2025 01:06 PM EDT Thank you for referring your patient to us, Krupa Adames MD [phone] (Electronically Signed - 06/26/2025 13:06) Copy: RUTHIE ARIAS MD [facility] PHYSICIANS- OB-FIRST AID DIRECTOR [place] [address] [place] [address] DEBBIE SAWYER MD [address] [address] Debbie Sawyer APRN [address] [place], [address], [place] - [facility] 08/04/2025 16:51:56 Ct, Abdomen, W/o Contrast : EXAMINATION: CT ABDOMEN WITHOUT CONTRAST CLINICAL INFORMATION: [...] Prosper Steve MD 08/21/2025 09:18 AM EDT RP Thank you for referring your patient to us, Prosper Steve MD [phone] (Electronically Signed - 08/21/2025 09:18) [facility] 08/21/2025 10:46:21 Problems Name Problem SNOMED Code Status Onset Date Resolution Date Notes Provider Name and Address Organization Details Recorded Time Active immuniza tion Completed 10/04/2023 Problem Code: Z23; Problem Code Type: ICD-10; DAPHNE [place], [address] , [facility] 3 13:13:29 Adult health examinat ion Active Problem Code: Z00.00; Problem Code Type: ICD-10; DAPHNE [place], [address] , [facility] [employer] [facility] 3 13:13:04 Body mass index 30+ - obesity [id number] Active Problem Code: Z68.39; Problem Code Type: ICD-10; DAPHNE [place], [address] , [facility] 3 13:13:04 Obesity 418872214 Active Problem Code: E66.9; Problem Code Type: ICD-10; DAPHNE [facility]ez [facility] [place], [address] , [facility] 3 13:13:04 Prediabe morgan 757249596 Active Problem Code: R73.03; Problem Code Type: ICD-10; Debbie Sawyer APRN [address] [facility], [place], [address] , [facility] 3 13:12:29 Impaired fasting glycemia 561499465 Active Problem Code: R73.01; Problem Code Type: ICD-10; Debbie Sawyer APRN [address] [facility], [place], [address] , [facility] 3 13:13:04 Sleep apnea 87760563 Active wears CPAP Problem Code: G47.30; Problem Code Type: ICD-10; Debbie Sawyer APRN [address] [facility], [place], [address] , [facility] 3 13:13:04 Snoring 39877896 Active Problem Code: R06.83; Problem Code Type: ICD-10; Debbie Sawyer APRN [address] [facility], [place], [address] , [facility] 3 13:13:04 Family history of Cardiova scular disease 226080305 Active Problem Code: Z82.49; Problem Code Type: ICD-10; Debbie Sawyer APRN [address] [facility], [place], [address] , [facility] 3 13:13:04 Moderate major depressi on, single episode 82313761 Active Problem Code: F32.1; Problem Code Type: ICD-10; Debbie Sawyer APRN [address] [facility], [place], [address] , [facility] 3 13:13:04 Chronic disease of tonsils AND/OR adenoids 62370878 Completed 10/04/2023 Problem Code: J35.8; Problem Code Type: ICD-10; Debbie Sawyer APRN [address] [facility], [place], [address] , [facility] 3 13:13:29 Osteoart hrosis of the carpomet acarpal joint of the thumb 53289311 Active left Problem Code: M18.9; Problem Code Type: ICD-10; Debbie Sawyer APRN [address] [facility], [place], [address] , [facility] 3 13:13:04 Arthriti s of right elbow [id number] 28861 Active Problem Code: M13.821; Problem Code Type: ICD-10; Debbie Sawyer APRN [address] [facility], [place], [address] , [facility] 3 13:13:04 Family history of diabetes mellitus 160263484 Active Problem Code: Z83.3; Problem Code Type: ICD-10; Debbie Sawyer APRN [address] [facility], [place], [address] , [facility] 3 13:13:04 Vitamin D deficien cy 57852740 Active Problem Code: E55.9; Problem Code Type: ICD-10; Debbie Sawyer APRN [address] [facility], [place], [address] , [facility] 3 13:13:04 Hearing loss of right ear 827623394 Active MUMPS AT AGE 2 Problem Code: H91.91; Problem Code Type: ICD-10; Debbie Sawyer APRN [address] [facility], [place], [address] , [facility] 3 13:13:04 Hearing loss of left ear 760833820 Active Problem Code: H91.92; Problem Code Type: ICD-10; Debbie Sawyer APRN [address] [facility], [place], [address] , [facility] 3 13:13:04 Allergic contact dermatit is caused by plant material [id number] 368510 Completed 10/04/2023 Problem Code: L23.7; Problem Code Type: ICD-10; Debbie Sawyer APRN [address] [facility], [place], [address] , [facility] 3 13:13:29 Injury of head 07490856 Completed 10/04/2023 Problem Code: S09.90XA ; Problem Code Type: ICD-10; Debbie Sawyer APRN [address] [facility], [place], [address] , [facility] 3 13:13:29 Acute tonsilli tis 21044223 Completed 10/04/2023 Problem Code: J03.90; Problem Code Type: ICD-10; Debbie Sawyer APRN [address] [facility], [place], [address] , [facility] 13:13:29 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/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; s/p 2 lesions excised 2003 Problem Code: C51.9; Problem Code Type: ICD-10; Not Available [facility] 03:26:50 Basal cell carcinom a of skin 305796945 Completed 07/31/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 , excised 2016 Problem Code: C44.91; Problem Code Type: ICD-10; Not Available [facility] 3 03:26:50 Bilatera l carpal tunnel syndrome [id number] 441078 Completed 07/31/2023 R is worse than L ;surgery 09/2020 Problem Code: G56.03; Problem Code Type: ICD-10; Not Available [facility] 3 03:26:50 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 Procedures Surgical History Date Name Laterality Status Provider Name and Address Organization Details Recorded Time 2024 [id number] completed DAPHNE Cortez , [place], [address] , [employer] 5 14:51:53 2024 EGFPMammogramReport Z[address], [place], [address] , [employer] 5 14:52:14 2024 EGFPCervicalCancerScreen Z124 [place], [address] , [employer] 5 14:52:08 2024 EGFPDepScreen Neg Z1389 [place], [address] , [employer] 5 14:52:15 2022 Most Recent Mammogram [place], [address] , [employer] 5 14:40:07 2022 Date of Last Pap Smear [place], [address] , [facility] 5 14:39:46 2016 Colonoscopy completed Debbie Sawyer APRN [address] [facility], [place], [address] , [facility] 5 10:33:30 Imaging Results None recorded. Procedure Notes None recorded. Medical Equipment None Reported. Allergies Allergen ID Allergen Name Allergen Category Reaction Reaction Severity Criticality Documentation Date Start Date Code Code System Note Provider Name and Address Organization Details Recorded Time 77454 Product containin g penicilli n (product) medicatio n hives moderate Not available 07/31/20232019 80315 8001 SNOMED Not Available [facility] 3 01:51:31 Medications Name Sig Start Date Stop Date Status Note LastModified by Organization Details LastModified Time doxycycline hyclate 100 mg capsule take 2 capsule (100 mg) by oral route once for tick bites; extra tabs given 09/24 completed Not Available Not Available Not Available triamcinolo ne acetonide 0.5 % topical cream apply a thin layer to the affected area(s) by topical route 2 times per day for 2 weeks 10/02 completed Not Available Not Available Not Available azithromyci n 250 mg tablet TAKE 2 TABLETS BY MOUTH TODAY, THEN TAKE 1 TABLET DAILY FOR 4 DAYS DIRECTED 06/13 completed Not Available Not Available Not Available sertraline 100 mg tablet 50 mg every day by oral route. 2024 active Not Available Not Available Not Avai lable oxycodone 5 mg/5 mL oral solution USE 5-10 ML EVERY 6 HOURS NEEDED FOR PAIN 10/06 completed Not Available Not Available Not Available amlodipine 2.5 mg tablet Take 1 tablet every day by oral route. 2024 active Not Available Not Available Not Avai lable amlodipine 5 mg tablet TAKE 1 TABLET BY MOUTH EVERY DAY active Not Available Not Available No t Available lorazepam 0.5 mg tablet Take 1 tablet as needed by oral route. 06/11 completed Not Available Not Available Not Available erythromyci n 5 mg/gram (0.5 %) eye ointment APPLY 1 CM RIBBON INTO THE LOWER CONJUNCTI FARZANA SAC(S) IN THE AFFECTED EYE(S) 3 TIMES PER DAY 06/13 completed Not Available Not Available Not Available mometasone 0.1 % topical ointment APPLY TO AFFECTED AREAS ON LEFT CHEEK TWICE A DAY X 2 WEEKS ON 1 WEEK OFF REPEAT NEEDED 06/13 completed Not Available Not Available Not Available multivitami n capsule once daily 2020 active Not Available Not Available Not Avai lable sertraline 50 mg tablet TAKE 1 TABLET BY MOUTH EVERY DAY active Not Available Not Available No t Available escitalopra m 10 mg tablet TAKE 1/2 TABLETS BY MOUTH DAILY 06/26 completed Not Available Not Available Not Available azelaic acid 15 % topical gel APPLY TO FACE EVERY DAY 08/04 completed Not Available Not Available Not Available Fish Oil 09/26 completed Not Available Not Available Not Available Vitamin D3 50 mcg (2,000 unit) capsule 50 mcg 2019 active Not Available Not Available Not Avai lable sertraline 150 mg capsule TAKE 1 CAPSULE BY MOUTH EVERY DAY IN THE EVENING active Not Available Not Available No t Available Zepbound 5 mg/0.5 mL subcutaneou s pen injector INJECT 5 MG SUBCUTANE OUSLY WEEKLY 08/04 completed Not Available Not Available Not Available Vitals Date Recorded Body height Heart rate Oxygen saturation Oxygen saturation in Arterial blood by Pulse oximetry Body mass index (BMI) Body weight Body temperature Systolic And Diastolic Provider Name and Address Organization Details Last Updated DateTime 158.75 cm 72 /min 98 % 98 % 40 kg/m2 896302. 51 g 98.6 [degF] 126/74 mm[Hg] Debbie Sawyer APRN [address] [place], [address], [facility] 09:22:09 Date Recorded Heart rate Systolic And Diastolic Provider Name and Address Organization Details Last Updated DateTime 05/12/2024 72 /min 136/78 mm[Hg] Debbie Sawyer APRN [address] [place], [address], [facility] 05/12/2024 13:29:36 Date Recorded Body height Oxygen saturation Oxygen saturation in Arterial blood by Pulse oximetry Body mass index (BMI) Body weight Provider Name and Address Organization Details Last Updated DateTime 05/12/2024 158.75 cm 98 % 98 % 40.3 kg/m2 628276. 69 g Andry Herrera [facility] 4 13:06:40 Date Recorded Systolic And Diastolic Systolic And Diastolic Systolic And Diastolic Provider Name and Address Organization Details Last Updated DateTime 06/14/2024 121/69 mm[Hg] 122/76 mm[Hg] 114/68 mm[Hg] Debbie Sawyer APRN [address] [facility], [place], [address], [facility] 06/14/2024 12:01:28 Date Recorded Body height Body mass index (BMI) Body weight Oxygen saturation Oxygen saturation in Arterial blood by Pulse oximetry Heart rate Systolic And Diastolic Provider Name and Address Organization Details Last Updated DateTime 4 158.75 cm 39.4 kg/m2 01168.7 3 g 98 % 98 % 72 /min 120/80 mm[Hg] Rosemary Sebastian [facility] 4 11:40:28 Date Recorded Systolic And Diastolic Provider Name and Address Organization Details Last Updated DateTime 06/15/2025 130/71 mm[Hg] Debbie Sawyer APRN [address] [place], [address], [facility] 06/15/2025 14:51:31 Date Recorded Body height Oxygen saturation Oxygen saturation in Arterial blood by Pulse oximetry Heart rate Body mass index (BMI) Body weight Body temperature Systolic And Diastolic Provider Name and Address Organization Details Last Updated DateTime 5 157.48 cm 98 % 98 % 67 /min 35.8 kg/m2 64537.6 7 g 98 [degF] 118/70 mm[Hg] Andry Herrera [facility] 5 14:09:51 Date Recorded Heart rate Heart rate Heart rate Systolic And Diastolic Systolic And Diastolic Systolic And Diastolic Systolic And Diastolic Provider Name and Address Organization Details Last Updated DateTime 5 58 /min 55 /min 48 /min 117/59 mm[Hg] 118/60 mm[Hg] 127/62 mm[Hg] 132/82 mm[Hg] Debbie Sawyer, FIRE CAPTAIN MARINE [address] [facility], [place], [address], [facility] 16:31:00 Date Recorded Body height Oxygen saturation Oxygen saturation in Arterial blood by Pulse oximetry Body temperature Body mass index (BMI) Body weight Provider Name and Address Organization Details Last Updated DateTime 157.48 cm 97 % 97 % 96.3 [degF] 33.6 kg/m2 22852.2 g Nona Sri [facility] 16:04:51 Social History Question Answer Notes LastModified by Organizat ion Details LastModified Time Tobacco Smoking Status Never Smoker Not Available [facility] 08/10/2023 11:47:47 Do You Have An Advance Directive? No Information not available 10/04/2023 What Is Your Advocate's Name? Esequiel [email or web address] Information not available 06/15/2025 What Is Your Relation To The Advocate? Information not available 10/04/2023 Do You Wear A Helmet When Biking? No Doesnt Bike [email or web address] Information not available 10/06/2023 Are You Blind Or Do You Have Difficulty Seeing? Yes Bifocals Information not available 10/04/2023 Are You Deaf Or Do You Have Serious Difficulty Hearing? Yes Deaf In R Ear Information not available 10/04/2023 What Type Of Diet Are You Following? REGULAR Information not available 10/04/2023 What Is The Highest Grade Or Level Of School You Have Completed Or The Highest Degree You Have Received? [id number] [email or web address] Information not available 10/06/2023 Have There Been Any Changes To Your Family Or Social Situation? No Information not available 10/06/2023 What Is The Fluoride Status Of Your Home? Non-fluoridated [email or web address] Information not available 10/06/2023 Are There Any Guns Present In Your Home? No [email or web address] Information not available 10/06/2023 Which Of Your Hands Is Dominant? Right [email or web address] Information not available 10/06/2023 [facility] [email or web address] Information not available 10/06/2023 What Was The Date Of Your Most Recent Tobacco Screening? 06/15/2025 [email or web address] Information not available 06/15/2025 How Many Children Do You Have? 1 1 Daughter Information not available 10/04/2023 Do You Have A Patient Advocate? Yes Information not available 10/04/2023 Do You Have Any Pets? Yes [email or web address] Information not available 10/06/2023 What Is Your Relationship Status? Information not available 10/04/2023 Do You Use Your Seat Belt Or Car Seat Routinely? Yes [email or web address] Information not available 10/06/2023 Are You Sexually Active? Yes [email or web address] Information not available 10/06/2023 Do You Have Any Siblings? 1 [email or web address] Information not available 10/06/2023 Do You Have Smoke And Carbon Monoxide Detectors In Your Home? Yes [email or web address] Information not available 10/06/2023 Are There Any Smokers In Your House? No [email or web address] Information not available 10/06/2023 Do You Participate In Social Media? No [email or web address] Information not available 10/06/2023 What Types Of Sporting Activities Do You Participate In? Walks, Yardwork Information not available 10/04/2023 Do You Use Sunscreen Routinely? No [email or web address] Information not available 10/06/2023 Are You Currently In School? No Information not available 10/04/2023 Sex: Unknown Functional Status Question Answer Note LastModified by Organization Details LastModified Time How many times per week do you consume alcohol? Less than 1 time per week Inform ation not available 10/04/2023 Do you use any illicit or recreational drugs? No Information not available 10/04/2023 Do you or have you ever used any other forms of tobacco or nicotine? No Information not available 10/04/2023 What is your level of alcohol consumption? Occasional Information not available 10/04/2023 Are you currently employed? 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 Occasional [email or web address] Information not available 10/06/2023 What type of noise exposure are you exposed to? noExposureToExcessiveNoise [email or web address] Infor mation not available 10/06/2023 Mental Status Question Answer Note LastModified by Organizat ion Details LastModified Time Do you feel stressed (tense, restless, nervous, or anxious, or unable to sleep at night)? [id number] [email or web address] Information not available 10/06/2023 Do you have difficulty concentrating, remembering or making decisions? Yes somtimes [email or web address] Information not available 10/06/2023 Family History Relationship Description Onset Age of this Age Resolved Age Notes LastModified by Organization Details LastModified Time Mother Type 2 diabetes mellitus [email or web address] Not available 2024 14:21:32 Mother Anemia arodis Not available 14:21:32 Mother Arthritis arodis Not available 06/15/2025 14:21:32 Maternal Grandfather Type 2 diabetes mellitus arodis Not available 2024 14:21:32 Maternal Grandmother Type 2 diabetes mellitus arodis Not available 2024 14:21:32 Paternal Grandmother Type 2 diabetes mellitus arodis Not available 2024 14:21:32 Brother Type 2 diabetes mellitus arodis Not available 2024 14:21:32 Father Myocardial infarction 52 arodis Not available 06/15 14:21:32 Father Arthritis arodis Not available 06/15/2025 14:21:32 Notes:Father : from heart and respiratory failure, smoker, ID at age 52, benign colon polyps, RA Mother : alive, tracheal bronchial malacia, DM Paternal Grandmother: , DM Maternal Grandfather: from prostate cancer, DM Maternal Grandmother: , DM older brother Alive prostate ca, DM, arrhythmia, HTN, benign colon polyps Medical History Condition Response G47 Obstructive Sleep Apnea I CARDIOVASCULAR -Cardiology K GASTROENTEROLOGY HOSPITALIZATIONS - nonsurgical N60 FCBD & Breast lumps OTHER SIGNIFICANT HISTORY NOT LISTED H91 Hearing Loss Gynecological History Statement/Question Response Date of Last Pap Smear 06/02/2023 Most Recent Mammogram 11/03/2023 Obstetrics History GPAL:G 0 P 0 0 0 0 Immunizations Vaccine Type Date Status Note Provider Nam e and Address Organization Details Recorded Time SARS-COV-2 (COVID-19) vaccine, UNSPECIFIED 1 completed DAPHNE Cortez [facility], [place], [address], [employer] 10/06/2023 16:25:20 SARS-COV-2 (COVID-19) vaccine, UNSPECIFIED 1 completed DAPHNE Cortez [facility], [place], [address], [facility] 10/06/2023 16:25:20 Influenza, split virus, trivalent, preservative 2 completed Debbie Sawyer APRN [address] [facility], [place], [address], [facility] 10/06/2023 16:25:20 Influenza, split virus, trivalent, preservative 0 completed DAPHNE Cortez [facility], [place], [address], [facility] 10/06/2023 16:25:20 SARS-COV-2 (COVID-19) vaccine, UNSPECIFIED 2 completed DAPHNE Cortez [facility], [place], [address], [facility] 10/06/2023 16:25:20 Influenza, split virus, quadrivalent, PF 1 completed Dave philippe, [place] [facility] 09/04/2023 14:55:03 SARS-COV-2 (COVID-19) vaccine, UNSPECIFIED 1 completed DAPHNE Cortez [facility], [place], [address], [facility] 10/06/2023 16:25:20 Tdap 9 completed DAPHNE Cortez [facility], [place], [address], [facility] 10/06/2023 16:25:20 Pneumococcal conjugate PCV20, polysaccharide [id number] conjugate, adjuvant, PF 5 completed Debbie Sawyer APRN [address] [facility], [place], [address], [facility] 06/15/2025 14:54:45 COVID-19, mRNA, LNP-S, PF, tong-sucrose, 30 mcg/0.3 mL [address], [place], [address], [facility] 10/06/2023 16:25:20 Influenza, split virus, quadrivalent, PF 3 completed Debbie Sawyer APRN [address] [facility], [place], [address], [facility] 10/06/2023 16:25:20 Influenza, split virus, quadrivalent, PF 2 completed Debbie Sawyer APRN [address], [place], [address], [facility] 10/06/2023 16:25:20 COVID-19, mRNA, LNP-S, PF, tong-sucrose, 30 mcg/0.3 mL 4 completed Cissy Bogli null, [facility] 10/19/2024 07:15:22 Influenza, split virus, trivalent, PF 4 completed Cissy Bogli null, [facility] 10/19/2024 07:15:22 Influenza, recombinant, trivalent, PF 5 completed Cissy Bogli null, [facility] 09/07/2025 15:12:50 zoster recombinant 3 completed Debbie Sawyer APRN [address], [place], [address], [facility] 10/06/2023 19:50:17 zoster recombinant 4 completed Krystal Grigsby null, [facility] 04/05/2024 08:41:43 Past Encounters Encounter ID Performer Location Encounter Start Date Encounter Closed Date Diagnosis/Indication Diagnosis SNOMED-CT Code Diagnosis ICD10 Code Diagnosis IMO Codes Diagnosis Note [id number] Debbie Sawyer APRN [facility] [address] [place] [address] 10/06/2023 15:58:18 10/12/2023 15:14:08 Active or passive immunization 765341031 Z23 1st shingrix givenutd covid and utd flureturn 6 mo for 2nd shingrix Adult heal th examination 836263329 BWP done - discussed and reviewed priors (prediabet es)living will packet given to ptutd dentistutd eye doctormedi cation and allergy list reviewed and updatedutd with her ob/gynretu rn 12 mo bwp for pex Screening for malignant neoplasm of colon 492116801 Z12.11 colonoscop y done in 2016 good til 2026 Screening for malignant neoplasm of breast 784520977 Z12.39 mammo scheduled for 10/2023 Screening for malignant neoplasm of cervix 495074916 Z12.4 last pap done with photostat operator helper in 2022 Moderate m ajor depression, single episode 54700415 F32.1 ctn on sertraline 50mgpt feels 50mg is working wellwe can inc to 100mg if stressors worsen Prediabetes 505507800 R7 3.03 A1C is now 5.9diet, exercise, wt loss Consider following a Mediterran erica diet - This is typically high in fruits, vegetables , whole grains, beans, nuts, and seeds; include olive oil as an important source of monounsatu rated fat; and allow low wine consumptio n. Also, low to moderate amounts of fish, poultry, and dairy products, with little red meat.Sever al health benefits: reductions in overall mortality, cardiovasc ular mortality - (stroke, myocardial infarction , cardiovasc ular ), cancer incidence and mortality, and incidence of Parkinson disease and Alzheimer disease . Also, there was a decreased risk for colorectal , prostate, aerodigest finn, oropharyng eal, and breast cancer and prevention of type 2 diabetes mellitus. Sleep apnea 81764437 G47 .30 compliant with CPAP Paronychia of toe 351699 002 L03.039 recommend warm soaks with epsom saltbacitr acin topically Body mass index 30+ - obesity 391076857 Z68.38 WEIGHT REDUCTION CARE PLANFollow these guidelines for weight reduction. Each 7-10% of weight reduction will improve diabetes, blood pressure, lipids, orthopedic problems, depression and will help prevent certain cancers.1. Concentrat e on eating fresh fruits, vegetables , whole grains & lean cuts of meat.2. Limit fatty foods, processed foods and sweets. Minimize breads, pastas, cakes, cookies, candies, ice cream & chips. Eat a few nuts, berries or grapes for snacks.3. Get a calorie counter booklet and look up and record everything BEFORE you eat it.4. If you can not figure out how many calories are in the food you are about to eat, DO NOT EAT IT.5. Calculate how many calories/d ay your body needs to stay at your present weight by multiplyin g your weight by 11 - i.e. , if you weigh 200 pounds then you are taking in 2200 calories/d ay just to stay at that weight.6. To lose 1 pound per week, you must reduce your calories by 3500 per week, or 500 calories per day - i.e. the 200 pound person should take 2200 calories less 500 calories or 1700 calorie/da y to lose 1 pound per week.7. Exercise for 30 minutes 5 days per week getting your pulse to aerobic goal ((220 minus your age) x 0.75)8. Minimize soda, juices and alcoholic drinks. Drink water instead.9. Avoid fast foods. Split a healthy meal when you go out to a nice restaurant .10. Increase your activities throughout the day, get up often and move.11. Use a salad plate for your main meals to reduce portion size.12. Eat SLOWLY, to give your brain a chance to recognize that you're full, before you eat too much Physical examination 588 0005 Z00.00 [id number] Debbie Sawyer APRN [address] [address] 05/12/2024 12:57:26 05/12/2024 13:31:53 Moderate major depression, single episode 69658667 F32.1 let's increase to 150mg sertraline and take rx in eveningre- connect with your therapistf /u in 1 mo Essential hypertension 46116988 I10 new HTNstart amlodipine 5mgdiscuss ed SE of leg swellingma y need to scale back to 2.5mg or up to 10 pending her home readingsta ke bp @ home dally for next 1-2 wks and notify acr with readingsgo al <130/80nee d to work on weight reduction and stress reduction as these are huge triggersre turn 1 mo with bp cufff/u with cardio august BP CONTROL CARE PLAN 1. Lose weight (if your BMI is elevated) To lose weight, you have to either eat less or move more. If you do both of those things, it's even better. But there is no single weight-los s diet or activity that's better than any other. When it comes to weight loss, the most effective plan is the one that you'll stick with. 2.Improve your diet There is no single diet that is right for everyone. But in general, a healthy diet can include:Lo ts of fruits, vegetables , and whole grainsSome beans, peas, lentils, chickpeas, and similar foodsSome nuts, such as walnuts, almonds, and peanutsSom e fishTo have a healthy diet, it's also important to limit or avoid sugar, sweets, meats, and refined grains. (Refined grains are found in white bread, white rice, most forms of pasta, and most packaged snack foods.) 3. Reduce salt Many people think that eating a low-sodium diet means avoiding the salt shaker and not adding salt when cooking. The truth is, not adding salt at the table or when you cook will only help a little. Almost all of the sodium you eat is already in the food you buy at the grocery store or at restaurant s.The most important thing you can do to cut down on sodium is to eat less processed food. That means that you should avoid most foods that are sold in cans, boxes, jars, and bags. You should also eat in restaurant s less often. To reduce the amount of sodium you get, buy fresh or fresh-froz en fruits, vegetables , and meats. (Fresh-fro garrett foods have had nothing added to them before freezing.) 4. Become more active If you want to be more active, you don't have to go to the gym or get all sweaty. It is possible to increase your activity level while doing everyday things you enjoy. Walking, gardening, and dancing are just a few of the things that you might try. As with all the other changes, the box is not to do too much too fast. If you don't do any activity now, start by walking for just a few minutes every other day. Do that for a few weeks. If you stick with it, try doing it for longer. But if you find that you don't like walking, try a different activity. 5. Drink less alcohol If you are a woman, do not have more than 1 standard drink of alcohol a day. 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 role on to pt's husbandwor k with therapist on talk therapy to ID stressors focus on breathing, walking, hydration prn ativan 0.5mg rx, we can refill this if pt feels it is needed -- but acr's hope is with bp med and inc zoloft we won't require ativan rx [id number] Debbie Sawyer APRN [address] [address] 06/14/2024 11:28:49 06/14/2024 11:59:27 Moderate major depression, single episode 39278693 F32.1 ctn on 150mg sertraline discussed it often takes 6-8 wks on inc dose to note improvemen tpt will be working with new therapist soon - this is great news!ctn with healthy foodstry to inc CV exercise as well to promote seratonin release and endorphins Hypertensive disorder 38 770420 I10 fantastic BP on amlodipine 5mg and no neg SEappt with cards scheduled for [facility] mmend 1 wk of bp readings prior to that appt so can present to cardiologi [facility] bp cuff compared to in office electronic and manual and very comparable so okay to use her cuff to check pressures Body mass index 30+ - obesity 484722656 Z68.38 down 5 lbs!! keep it upAim for a mediterran erica-like diet: plenty of fruits, vegetables , lean cuts of meat, fish and whole grains. Exercise regularly for 20-30 minutes, 5 days per week. Maintain a healthy weight. Drink water and avoid the calories and carbohydra morgan that are in juices, sports drinks, energy drinks, soda and alcohol. WEIGHT REDUCTION CARE PLANFollow these guidelines for weight reduction. Each 7-10% of weight reduction will improve diabetes, blood pressure, lipids, orthopedic problems, depression and will help prevent certain cancers.1. Concentrat e on eating fresh fruits, vegetables , whole grains & lean cuts of meat.2. Limit fatty foods, processed foods and sweets. Minimize breads, pastas, cakes, cookies, candies, ice cream & chips. Eat a few nuts, berries or grapes for snacks.3. Get a calorie counter booklet and look up and record everything BEFORE you eat it.4. If you can not figure out how many calories are in the food you are about to eat, DO NOT EAT IT.5. Calculate how many calories/d ay your body needs to stay at your present weight by multiplyin g your weight by 11 - i.e. , if you weigh 200 pounds then you are taking in 2200 calories/d ay just to stay at that weight.6. To lose 1 pound per week, you must reduce your calories by 3500 per week, or 500 calories per day - i.e. the 200 pound person should take 2200 calories less 500 calories or 1700 calorie/da y to lose 1 pound per week.7. Exercise for 30 minutes 5 days per week getting your pulse to aerobic goal ((220 minus your age) x 0.75)8. Minimize soda, juices and alcoholic drinks. Drink water instead.9. Avoid fast foods. Split a healthy meal when you go out to a nice restaurant .10. Increase your activities throughout the day, get up often and move.11. Use a salad plate for your main meals to reduce portion size.12. Eat SLOWLY, to give your brain a chance to recognize that you're full, before you eat too much [id number] Debbie Sawyer APRN [address] [address] 2024 08:56:46 2024 09:38:01 Common cold 31918635 J00 2454 in house test for flu/covid/ strep/rsv negpt has been sick for 6 days with no major improvemen tlet's treat with z pack and recommend Q12 hr mucinex 600mg to help break up dischargel ots of fluids/res t If symptoms are not improving or worsening, return for re-evaluat ion. Patient agrees with this assessment and plan and will call with any further questions or concerns. Generalize d aches and pains 17707844 R52 34337 in house testing neg Bacterial conjunctivitis 681681914 H10.9 22111 treat with erytho ointment in R eye, discussion on how to usewash sheets/bed ding in 24 hr AFTER antibxno eye makeupno contacts until resolution do not rub or cross contaminat e - this can spread to your L eyehand hygiene so importantc ool compresses for comfort Temporoman dibular joint disorder 88237382 M26.609 924878 with tmj irritation - recommend 600mg ibuprofen Q8 for 72 hrs and heat to affected area [id number] Debbie Sawyer APRN [address] [address] 06/15/2025 13:59:57 06/15/2025 14:50:53 Obstructive sleep apnea syndrome 92504018 G47.33 320398 compliant with CPAPdoing well on zepbound 5mg Q wk, rx renewed Moderate m ajor depression, single episode 43828913 F32.1 let's ctn 50mg sertraline you can wean to 25mg if you feel mood is stable and see after 2 wks-1 mo off medication how you feelif anxiety/de pression worsen, resume 50mg sertraline Seborrheic keratosis 394 884124 L82.1 07051 f/u with derm Pain of joint 01846972 M 25.50 [id number] let's do bw for RAconsider RA v. OArecommen d weight loss, hydration, regular exercise, stretching and PRN topical or oral nsaidsnatu ral remedy would be magnesium oral or topical cream Immunization due 8070761 08 Z23 4584727 pcv20 given Hypertensive disorder 38 627561 I10 fantastic BP on amlodipine 5mg and no neg SE you can trial 1 wk off of amlodipine since you have had profound weight loss and see if pressures have normalized since today's bp x2 were w/o medsif bp is >120/80 off of medication , plz resume 5mg amlodipine dailysaw cardio @ [place] - requested records Prediabetes 948302741 R7 3.03 A1C is 5.9 requestedc tn to focus on healthy diet, exercise, wt loss Consider following a Mediterran erica diet - This is typically high in fruits, vegetables , whole grains, beans, nuts, and seeds; include olive oil as an important source of monounsatu rated fat; and allow low wine consumptio n. Also, low to moderate amounts of fish, poultry, and dairy products, with little red meat.Sever al health benefits: reductions in overall mortality, cardiovasc ular mortality - (stroke, myocardial infarction , cardiovasc ular ), cancer incidence and mortality, and incidence of Parkinson disease and Alzheimer disease . Also, there was a decreased risk for colorectal , prostate, aerodigest finn, oropharyng eal, and breast cancer and prevention of type 2 diabetes mellitus. Body mass index 30+ - obesity 953275043 Z68.38 amazing weight loss with zepbound!! !rx renewedkee p it up Aim for a mediterran erica-like diet: plenty of fruits, vegetables , lean cuts of meat, fish and whole grains. Exercise regularly for 20-30 minutes, 5 days per week. Maintain a healthy weight. Drink water and avoid the calories and carbohydra morgan that are in juices, sports drinks, energy drinks, soda and alcohol. WEIGHT REDUCTION CARE PLANFollow these guidelines for weight reduction. Each 7-10% of weight reduction will improve diabetes, blood pressure, lipids, orthopedic problems, depression and will help prevent certain cancers.1. Concentrat e on eating fresh fruits, vegetables , whole grains & lean cuts of meat.2. Limit fatty foods, processed foods and sweets. Minimize breads, pastas, cakes, cookies, candies, ice cream & chips. Eat a few nuts, berries or grapes for snacks.3. Get a calorie counter booklet and look up and record everything BEFORE you eat it.4. If you can not figure out how many calories are in the food you are about to eat, DO NOT EAT IT.5. Calculate how many calories/d ay your body needs to stay at your present weight by multiplyin g your weight by 11 - i.e. , if you weigh 200 pounds then you are taking in 2200 calories/d ay just to stay at that weight.6. To lose 1 pound per week, you must reduce your calories by 3500 per week, or 500 calories per day - i.e. the 200 pound person should take 2200 calories less 500 calories or 1700 calorie/da y to lose 1 pound per week.7. Exercise for 30 minutes 5 days per week getting your pulse to aerobic goal ((220 minus your age) x 0.75)8. Minimize soda, juices and alcoholic drinks. Drink water instead.9. Avoid fast foods. Split a healthy meal when you go out to a nice restaurant .10. Increase your activities throughout the day, get up often and move.11. Use a salad plate for your main meals to reduce portion size.12. Eat SLOWLY, to give your brain a chance to recognize that you're full, before you eat too much Hearing lo ss of right ear 144205090 H91.91 chronic Adult [facility] th examination 484912661 Z00.00 Medication s: reviewedAl lergies: reviewedAd acosta Directive: informatio n and packet provided and reminded to complete and return to [facility] bw @ sb - camille frias 6 mo for f/ureturn 12 mo for pex bwp V accines: utd with flu, covid, tdap, shingrix and pcv20 given today S creening:P ap smear (21-65): utd with gynMammogr am (40-74): upcomingco lonoscopy (45-75): utdHep C (USPSTF now recommends that all adults aged 18 to 79 years be screened) : nonreactiv eEye exam: Q 1 yrDental exam: Q6 mo Vitamin D deficiency 347 12051 E55.9 check level with bw Factor V L eiden mutation 417650446 D68.51 612452 bw ordered Screening for malignant neoplasm of cervix 589440786 Z12.4 5459849 last pap done with photostat operator helper in 2022 Screening for malignant neoplasm of colon 575343912 Z12.11 8783748 colonoscop y done in 2017 good til 2026 Screening mammography 24 984409 Z12.31 0890402 mammo scheduled for 10/2023 Screening for disorder 058124075 Z13.89 8468576 Depression screening 171 862783 Z13.31 [id number] Debbie Sawyer, D[facility]NE [facility] [address] [place] [address] 08/04/2025 15:59:03 08/04/2025 16:30:21 Hypertensive disorder 57673344 I10 pt has had notable weight loss with zepboundbp @ home soft and hr lowdiscuss ion that low HR - may be r/t her medication s - we need to evaluate this to see if we can adjust let's trial 2.5mg amlodipine with goal bp 120-130/70 s; goal hr 50sekg reviewed from med surg nurse, consider re-eval with cardio with possible infarctekg from 2022 compared and also sinus flako (no mention of infarct)pt saw cardio in 2023, we can revisit /1 06/15, Cardiology Note, Trip Marshall MD, fam hx CAD: EKG, NSR 64 bpm, TTE, nml, EF 60-65%, BP 120/68mm Hg Acute abdominal pain 116 430738 R10.9 95513 based on hx and presentati on: possibilit y pt was experienci ng severe gas pain - that would explain the area of pain and resolution low likihood r/t gerd, bowel obstructio n, cardiac event pt hasn't had re-occurre nce sinceekg @ event sinus flako with possible infarct.sh e would like imaging to check on gallbladde r - ct abd w/o contrast ordered today ctn with healthy diet, regular exercise, water and mvmt Health Concerns Section Related Observation LastModified by Organization Detai ls LastModified Time None Recorded Concern Status LastModified by Organization Details LastModified Time None Recorded Advance Directives Directive N: Payers Insurance Date Sequence Insurance Name Policy Number Policy Posey Covered Member ID Posey Member ID Guarantor Name 08/04/2025 1 [facility] [id number] Sasha Miranda [id number] Sasha Miranda 06/14/2024 1 [facility] [id number] Esequiel Miranda [id number] Sasha Miranda Notes Date Note Type Note Provider Name and Address Organization Details Recorded Time 05/12/2024 text/html pt here for f/u after hospitalshe is primary depalletizer operator for her motherher mother was in hospital 04/13 for PE for 1 wkher mom was in hospital again for low o2 sat on 04/28pt took bp @ her mother's home on thursdaymay 06 and pressure 150/108, 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 @ [employer] 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 and reading again was elevated -- she then was send to EDpt had ekg, ct head, mri head and was given ativan which helped greatly -- she has appt with cardio end of june and was advised to f/u with neurothe s/s that led to hospital were sob, htn, chest pressure, facial numbnesslooking back -- pt thinks r/t anxiety and HTN additionally her brother is of no help with caretaking rolept's can be of help but mainly sasha is primary depalletizer operator of her momshe has taken ativan x4 times .5mg since may 06 (today is may 12) she feels about the same but notes some improvement messaged therapist as well Debbie Sawyer, [employer] [address] [facility], [place], [address], [facility] 05/12/2024 14:05:33 06/14/2024 text/html ROS as noted in the HPI 1 mo f/u HTN. brought in home cuff down 5 lbs, 219 lbs this ameating so much better has readings of BP since starting med: 123/67, 130/74, 124/74, 119/77, 124/74, 132/74, 120/69, 130/74, 118/79, 138/87, 134/77, 125/71, 114/71, 119/65 , 132/73 , 124/74 , 123/69 , 134/67 , 123/73 , 130/70, 114/68, 130/70, 122/70, 127/77, 127/69, 126/76, 121/71, 113/71, 120/72, 113/71 In office left arm home blood pressure cuff 121/69 no chest pain, no sob, no ankle swelling 1 mo f/u on 150mg sertraline, too soon to see difference/changewill be working with new therapist- got her name this am Debbie Sawyer APRN [address], [place], [address], [facility] 06/14/2024 12:05:14 2024 text/html ROS as noted in the HPI pt had flu A in 11/24/2023id feel full resolution of symptomson 12/07 started to fee sick again with cold like symptomsST, ears feel blocked, cough in am (productive)TMJ (jaw locked for 24 hrs)teeth feel sensitivelast night 12/11 R eye gritty sensation, discharge , uncomfortable- conjunctivitistook home flu and covid which was negsome body aches and sneezingno sob, no cough throughout the day (just in am)denies fever, chillsmucinex dm p5ojljaxf for flu/covid/strep/rsv in office Debbie Sawyer APRN [address], [place], [address], [facility] 2024 09:40:08 06/15/2025 text/html pt here for pex nfno bw or urine providedeye exam- 14 months ago, goes annuallydentist- 04/2025- goes every 6 monthsderm - annually, 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 starting weight was 230.4 and now she's 165lbs! she feels great. mood feels better. needs dose refill. pays around $600 out of pocket but for her it's worth itongoing arthralgiasno acute painmother sick, had appt with hospice, pt's mother refused and her brother wasn't helpful pt has some questions1. weaned down to 50mg sertraline. feels this is better dose. less constipation. she was wondering and questioning if she could or should wean off. does have ongoing anxiety/depression2. needs rx refill of 5mg zepbound3. has spot on her ankle that changed color, flaky4. wondering if she needs her BP medication, didn't take it this AM and BP was okay in office; wondering if it is still required5. 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 [facility], did records get sent here?7. mother has Factor V d/o, wondering if she does too Debbie Sawyer APRN [address], [place], [address], [place] [facility] 06/15/2025 18:31:31 08/04/2025 text/html ROS as noted in the HPI Thursday @ 11pm had severe mid abd, front of body/chest, shoulder and back painsevere gbaxzyibj46/10 painfelt very unwellcalled 911emt arrived and assesseddid exam and ekg, pt has rhythm with her, sinus flako with HR 48 bpm (at this point pain lowered)pain lasted til 130am then stoppedno nausea with event, some salivation increase, no vomiting, no diarrhea, no constipation, no chest pain, no gas pain, no reflux/heartburn, no dizziness, not lightheaded, no abd pain, no feverdinner was her usual - baked salmon with salad (blue cheese and dressing), no alcohol, no carbonated beveragesfor a few months she's had pinch in her right backthinks it is r/t to her gallbladderwould like imagingalso worried about her low HR/bradycardiaher BP and HR @ home have been 117/59, hr 55, hr 48 bp 118/58, 127/62 today with hr 54she stopped her zepbound 5mg dose 3 wks agosaw cardio in 2023 and was told all normal [address], [place], [address], [place] [facility] 08/04/2025 17:12:29 OBGyn Episode No OBEpisode recorded.
--- OUTSIDE RECORDS SUMMARY | 2025-10-02 13:58 | XMS_ITS | Data Portability ---
Author Organization [place] - DatabraidKaiden maza, [facility] Address [address] [place] [phone] Assessment No assessment recorded. Plan of Treatment Reminders Order Date Submit Date Provider Last Modified By Organization Details Last Modified Time Details Appointments None recorded. Lab None recorded. Referral None recorded. Procedures None recorded. Surgeries None recorded. Imaging None recorded. Medication Orders Zepbound 5 mg/0.5 mL subcutaneou s pen injector 2024 025 [facility][id number], [address] [place] [address], [address], 14:25:16 Zepbound 2.5 mg/0.5 mL subcutaneou s pen injector 2024 025 dwitkins Not available 14:41:01 Patient TargetsNo targets recorded. Patient Instructions Encounter Date Encounter Id Patient Instructions Last Modified By Organization Details Last Modified Time 03/14/2025 [id number] CPAP (5-20) Q HS Regular mask and equipment changes Avoid alcohol or other potentially sedating agents prior to bed Zepbound 2.2 mg SQ injection Q week x 3 weeks Diet and exercise Covid precautions 4 week follow up for weight check dwitkins Not available 03/14/2025 14:42:43 04/11/2025 [id number] CPAP (5-20) Q HS Regular mask and equipment changes Avoid alcohol or other potentially sedating agents prior to bed Zepbound 5 mg SQ injection Q week x 3 weeks Diet and exercise Covid precautions 4 week follow up for weight check dwitkins Not available 04/16/2025 14:26:55 Reason for Referral None Reported. Problems Name Problem SNOMED Code Status Onset Date Resolution Date Notes Provider Name and Address Organization Details Recorded Time Obstructive sleep apnea syndrome 00937317 Active 2021 DANIEL (obstr uctive sleep apnea) DANIEL on CPAP Dimitry Halldavid [facility] 5 08:40:38 Body mass index 30+ - obesity 128453534 Active 2024 Bela Reyes, DAPHNE [address] [place], [address], [facility] 5 13:19:34 Problem Notes None recorded. Procedures Surgical History Date Name Laterality Status Provider Name and Address Organization Details Recorded Time 5 Patient Billing Time cancelled Dimitry Halldavid [facility] 05/05/2025 11:32:57 5 Patient Billing Time completed Dimitry Isabeldavid [facility] 04/06/2025 08:14:43 5 Patient Billing Time completed Bela Reyes, DAPHNE [address] [place], [address], [facility] 03/14/2025 13:19:09 Imaging Results None recorded. Procedure Notes None recorded. Medical Equipment None Reported. Medications Name Sig Start Date Stop Date Status Note LastModified by Organization Details LastModified Time azithromyc in 250 mg tablet TAKE 2 TABLETS BY MOUTH TODAY, THEN TAKE 1 TABLET DAILY FOR 4 DAYS DIRECTED active Not Available Not Available No t Available sertraline 100 mg tablet TAKE 1 AND 1/2 TABLETS BY MOUTH IN THE EVENING active Not Available Not Available No t Available amlodipine 5 mg tablet TAKE 1 TABLET BY MOUTH EVERY DAY active Not Available Not Available No t Available lorazepam 0.5 mg tablet TAKE 1 TABLET BY MOUTH TWICE A DAY NEEDED FOR ANXIETY active Not Available Not Available No t Available erythromyc in 5 mg/gram (0.5 %) eye ointment APPLY 1 CM RIBBON INTO THE LOWER CONJUNCTI FARZANA SAC(S) IN THE AFFECTED EYE(S) 3 TIMES PER DAY active Not Available Not Available No t Available mometasone 0.1 % topical ointment APPLY TO AFFECTED AREAS ON LEFT CHEEK TWICE A DAY X 2 WEEKS ON 1 WEEK OFF REPEAT NEEDED active Not Available Not Available No t Available sertraline 50 mg tablet TAKE 2 TABLETS BY MOUTH EVERY DAY active Not Available Not Available No t Available azelaic acid 15 % topical gel APPLY TO FACE EVERY DAY active Not Available Not Available No t Available Zepbound 5 mg/0.5 mL subcutaneo us pen injector INJECT 5 MG SUBCUTANE OUSLY WEEKLY active Not Available Not Available No t Available Zepbound 2.5 mg/0.5 mL subcutaneo us pen injector Inject 2.5 mg by subcutane ous route. 2024 active 3 additiona l sample pens provided Not Available Not Available Not Available Vitals Date Recorded Systolic And Diastolic Provider Name and Address Organization Details Last Updated DateTime 03/14/2025 124/76 mm[Hg] Bela Reyes, C[employer] SAL[employer] SERVICE [employer]OCIATE [address] [place], [address], [facility] 03/14/2025 14:41:34 Date Recorded Body height Body temperature Body mass index (BMI) Body weight Heart rate Oxygen saturation Oxygen saturation in Arterial blood by Pulse oximetry Provider Name and Address Organization Details Last Updated DateTime 5 160 cm 96.7 [degF] 39.9 kg/m2 408577. 28 g 59 /min 97 % 97 % FIONA WETZEL [place] [employer] 09:33:44 Date Recorded Body height Body temperature Body mass index (BMI) Body weight Heart rate Oxygen saturation Oxygen saturation in Arterial blood by Pulse oximetry Respiratory rate Provider Name and Address Organization Details Last Updated DateTime 5 160.02 cm 98 [degF] 39 kg/m2 14204.3 2 g 68 /min 98 % 98 % 14 /min Dimitry Del Toro [facility] 5 10:24:13 Social History None recorded. Functional Status None recorded. Mental Status None recorded. Family History Nothing Reported. Medical History No medical history recorded. Gynecological HistoryNo gynecological history recorded. Obstetrics History GPAL:G 0 P 0 0 0 0 Immunizations Vaccine Type Date Status Note Provider Nam e and Address Organization Details Recorded Time Influenza, split virus, quadrivalent, PF 09/20/2022 completed Not Available [employer] 4 23:08:27 Past Encounters Encounter ID Performer Location Encounter Start Date Encounter Closed Date Diagnosis/Indication Diagnosis SNOMED-CT Code Diagnosis ICD10 Code Diagnosis IMO Codes Diagnosis Note [id number] Bela Reyes APRN [facility] [address] [facility], [address] [address] 03/14/2025 09:25:55 03/23/2025 15:53:10 Obstructive sleep apnea syndrome 95151976 G47.33 8997022 021788 Severe, positional apneaCouns eled on DANIEL and potential health risksRevie [facility] sleep hygieneThi s patient displays signs and symptoms consistent with obstructiv e sleep apnea including daytime somnolence , nocturnal snoring, restless sleep and frequent arousals. Discussion s were directed towards the pathology of DANIEL and the health risks including heart diease, hypertensi on, CVA, daytime sleepiness , risks for accidents and difficulty with tasks of vigilance. Untreated or undertreat ed sleep disordered breathing may increase the risk of multiple health Issues including but not limited to heart disease, neurologic al events, motor vehicle accidents and dementia.T he patient should avoid sedative, hypnotics, muscle relaxing agents, alcohol beverages, and narcotic analgesics within four hours of sleep. The patient is asked to inform medical and dental caregivers of his diagnosis and ongoing treatment for sleep disordered breathing. The patient is advised that prescribed medication s including the delivery of anesthetic /sedation without proper respirator y support may seriously impact respirator y function. The patient is cautioned to never drive or operate machinery while drowsy. Used / daysAverag e use time 5 hours and 15 minutesMea n pressure 8.6AHI 1.0Central 0.1Complia nt with and benefiting from therapy Body mass index 30+ - obesity 302819402 E66.9 8097906 Dietary modificati on and age appropriat e exercise encouraged to reduce weight, which may impact sleep apnea in a positive way and improve overall health Discussed weight management and she would like to try an injectable weight loss medication . A sample of Zepbound was injected to left arm and tolerated wellInstru cted on self-admin istrationS avings card provided- to call insurance to determine coverage [id number] Bela Reyes APRN [facility] [address] [facility], [facility] [address] [place] [address] 04/11/2025 08:47:15 04/18/2025 15:42:41 Obstructive sleep apnea syndrome 70401519 G47.33 0636107 825430 Severe, positional apneaCouns eled on DANIEL and potential health risksRevie [facility] sleep hygieneThi s patient displays signs and symptoms consistent with obstructiv e sleep apnea including daytime somnolence , nocturnal snoring, restless sleep and frequent arousals. Discussion s were directed towards the pathology of DANIEL and the health risks including heart diease, hypertensi on, CVA, daytime sleepiness , risks for accidents and difficulty with tasks of vigilance. Untreated or undertreat ed sleep disordered breathing may increase the risk of multiple health Issues including but not limited to heart disease, neurologic al events, motor vehicle accidents and dementia.T he patient should avoid sedative, hypnotics, muscle relaxing agents, alcohol beverages, and narcotic analgesics within four hours of sleep. The patient is asked to inform medical and dental caregivers of his diagnosis and ongoing treatment for sleep disordered breathing. The patient is advised that prescribed medication s including the delivery of anesthetic /sedation without proper respirator y support may seriously impact respirator y function. The patient is cautioned to never drive or operate machinery while drowsy. Used 30/ daysAverag e use time 5 hours and 20 minutesMea n pressure 8.2AHI 1.1Central 0.1Complia nt with and benefiting from therapy Body mass index 30+ - obesity 788420228 E66.9 0547083 Dietary modificati on and age appropriat e exercise encouraged to reduce weight, which may impact sleep apnea in a positive way and improve overall health She is using Zepbound and has lost 12 lbs She is using the Savings card provided- She is doing well with the medication and would like to increase to the next dose Health Concerns Section Related Observation LastModified by Organization Detai ls LastModified Time None Recorded Concern Status LastModified by Organization Details LastModified Time None Recorded Advance Directives Directive None Recorded Payers Insurance Date Sequence Insurance Name Policy Number Policy Posey Covered Member ID Posey Member ID Guarantor Name 05/07/2025 1 [facility] [id number] Sasha Miranda [id number] Sasha Miranda Notes Date Note Type Note Provider Name and Address Organization Details Recorded Time 03/14/2025 text/html Sasha Miranda is a 58 y.o. female who returns today for follow up. She is using CPAP and is doing well. States she is no longer snoring. 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 She has received the Pfizer Covid vaccine x 2 and the booster x 23. 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 Positive for age, snoring, apnea, BMI and fatigue.[place] 13She underwent a one night study and slept for 5.92 hours with latency of 2 minutes and 84% efficiency.Snoring > 30 dB, 36%Mean SpO2 96%AHI 29RDI 47 Bela Reyes, [employer] SAL[employer] SERVICE ASSOCIATE [address] [place], [address], [employer] 03/14/2025 14:43:10 04/11/2025 text/html This 59 y.o. female returns today for follow up. She is using CPAP and is doing well. States she is no longer snoring. Feels rested She has started using Zepbound for weight loss and is doing well. 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 She has received the Pfizer Covid vaccine x 2 and the booster x 23. 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 Positive for age, snoring, apnea, BMI and fatigue.[place] 13She underwent a one night study and slept for 5.92 hours with latency of 2 minutes and 84% efficiency.Snoring > 30 dB, 36%Mean SpO2 96%AHI 29RDI 47 Bela Reyes, CENTER SAL[employer] SERVICE ASSOCIATE [address] [place], [address], [employer] 04/16/2025 14:27:13 OBGyn Episode No OBEpisode recorded.
--- OUTSIDE RECORDS SUMMARY | 2025-10-02 13:58 | XMS_ITS ---
Author Name [facility] Organization Unknown Results Test Name/Text Value Interpretation Date Range Source Microalbumin Ur-mCnc 0.6 mg/dL Normal 06/24/2025 - [facility] Albumin/Creat Ur 4.0 mg/g creat Normal 06/24/2025 - 30 [facility] Creat Ur-mCnc 165.0 mg/dL Normal 06/24/2025 20 - [address] LDLc SerPl Calc-mCnc 79.0 mg/dL (calc) Normal 06/24/2025 [facility] NonHDLc SerPl-mCnc 98.0 mg/dL (calc) Normal 06/24/2025 - 130 [facility] HDLc SerPl-mCnc 58.0 mg/dL Normal 06/24/2025 - [facility] Cholest/HDLc SerPl 2.7 (calc) Normal 06/24/2025 - 5 [facility] Trigl SerPl-mCnc 105.0 mg/dL Normal 06/24/2025 - 150 [facility] Cholest SerPl-mCnc 156.0 mg/dL Normal 06/24/2025 - 200 [facility] ESR RBC Qn Westrgrn 14.0 mm/h Normal 06/24/2025 - [facility] cCP IgG SerPl-aCnc <16 Normal 06/24/2025 [facility] Prot SerPl-mCnc 6.4 g/dL Normal 06/24/2025 6.1 - 8.[address] AST SerPl-cCnc 14.0 U/L Normal 06/24/2025 10 - 35 [facility] Albumin SerPl-mCnc 4.2 g/dL Normal 06/24/2025 3.6 - 5.1 [facility] BUN/Creat SerPl SEE NOTE: 06/24/2025 6 - [address] Chloride SerPl-sCnc 107.0 mmol/L Normal 06/24/2025 98 - 1 10 [facility] BUN SerPl-mCnc 12.0 mg/dL Normal 06/24/2025 7 - [address] Potassium SerPl-sCnc 4.3 mmol/L Normal 06/24/2025 3.5 - 5 .3 [facility] Albumin/Glob SerPl 1.9 (calc) Normal 06/24/2025 1 - 2.5 [facility] Sodium SerPl-sCnc 142.0 mmol/L Normal 06/24/2025 135 - 14 6 [facility] Creat SerPl-mCnc 0.88 mg/dL Normal 06/24/2025 0.5 - 1.05 [facility] eGFRcr SerPlBld CKD-EPI 2020 75.0 mL/min/1.73m2 Normal 06/24/2025 - [facility] Globulin Ser Calc-mCnc 2.2 g/dL (calc) Normal 06/24/2025 1.9 - 3.7 [facility] ALT SerPl-cCnc 12.0 U/L Normal 06/24/2025 6 - 29 [facility] ALP SerPl-cCnc 39.0 U/L Normal 06/24/2025 37 - 153 [facility] Calcium SerPl-mCnc 9.2 mg/dL Normal 06/24/2025 8.6 - 10.4 [facility] Bilirub SerPl-mCnc 0.4 mg/dL Normal 06/24/2025 0.2 - 1.2 [facility] CO2 SerPl-sCnc 27.0 mmol/L Normal 06/24/2025 20 - 32 [facility] Glucose SerPl-mCnc 101.0 mg/dL Above high normal 06/24/2025 65 - 99 [facility] HbA1c MFr Bld 5.6 % Normal 06/24/2025 - 5.7 [facility] TSH SerPl-aCnc 2.39 mIU/L Normal 06/24/2025 0.4 - 4.[address] NEREIDA Ser Ql NEGATIVE Normal 06/24/2025 - [facility] 25(OH)D3+25(OH)D2 SerPl-mCnc 48.0 ng/mL Normal 06/24/2025 30 - 100 [facility] CRP SerPl-mCnc 5.6 mg/L Normal 06/24/2025 - 8 [facility] F5 p.[id number] Bld/T Ql NEGATIVE 06/24/2025 [facility] F5 gene Mut Anl Bld/T See Below 06/24/2025 [facility] RDW RBC Auto 13.7 % Normal 06/24/2025 11 - 15 [facility] Basophils NFr Bld Auto 0.9 % Normal 06/24/2025 [facility] Neutrophils # Bld Auto 2169.0 cells/uL Normal 06/24/2025 1500 - 7800 [facility] RBC Auto 91.3 fL Normal 06/24/2025 80 - 100 [facility] Basophils # Bld Auto 40.0 cells/uL Normal 06/24/2025 0 - 200 [facility] PMV Bld Anthony-Elizabeth 14.7 fL Above high normal 06/24/2025 7. 5 - 12.5 [facility] Platelet # Bld Auto 140.0 Thousand/uL Normal 06/24/2025 140 - 400 [facility] Neutrophils NFr Bld Auto 49.3 % Normal 06/24/2025 [facility] Monocytes # Bld Auto 290.0 cells/uL Normal 06/24/2025 200 - 950 [facility] MCHC RBC Auto-EntMCnc 31.9 g/dL Below low normal 06/24/2025 32 - 36 [facility] Eosinophil # Bld Auto 189.0 cells/uL Normal 06/24/2025 15 - 500 [facility] Monocytes NFr Bld Auto 6.6 % Normal 06/24/2025 [facility] Hct VFr Bld Auto 40.1 % Normal 06/24/2025 35 - 45 [facility] Lymphocytes NFr Bld Auto 38.9 % Normal 06/24/2025 [facility] Hgb Bld-mCnc 12.8 g/dL Normal 06/24/2025 11.7 - 15.5 [facility] Lymphocytes # Bld Auto 1712.0 cells/uL Normal 06/24/2025 850 - 3900 [facility] WBC # Bld Auto 4.4 Thousand/uL Normal 06/24/2025 3.8 - 10 .8 [facility] MCH RBC Qn Auto 29.2 pg Normal 06/24/2025 27 - [address] Eosinophil NFr Bld Auto 4.3 % Normal 06/24/2025 [facility] RBC # Bld Auto 4.39 Million/uL Normal 06/24/2025 3.8 - 5. 1 [facility] Rheumatoid fact SerPl-aCnc <10 Normal 06/24/2025 - 14 [facility] History of Medication Use Medication Directions Dispensed Refills Start Date End Date Stat amlodipine 2.5 mg tablet Take 1 tablet every day by oral route. 08/04/2025 active Zepbound 5 mg/0.5 mL subcutaneous pen injector INJECT 5 MG SUBCUTANEOUSLY WEEKLY 06/15/2025 active sertraline 100 mg tablet 50 mg every day by oral route. 06/13/2025 active Zepbound 5 mg/0.5 mL subcutaneous pen injector Inject 5 mg every week by subcutaneous route. 04/16/2025 active Zepbound 2.5 mg/0.5 mL subcutaneous pen injector Inject 2.5 mg by subcutaneous route. 03/14/2025 active erythromycin 5 mg/gram (0.5 %) eye ointment APPLY 1 CM RIBBON INTO THE LOWER CONJUNCTIVAL SAC(S) IN THE AFFECTED EYE(S) BY OPHTHALMIC ROUTE 3 TIMES PER DAY 2024 active amLODIPine (NORVASC) 5 MG tablet 06/06/2024 active amlodipine 5 mg tablet Take 1 tablet every day by oral route. 05/12/2024 active sertraline (ZOLOFT) 100 MG tablet TAKE 1 AND 1/2 TABLETS BY MOUTH IN THE EVENING 05/12/2024 active sertraline 50 mg tablet Take 1 tablet every day by oral route. 05/11/2024 06/14/20 24 active lorazepam 0.5 mg tablet Take 1 tablet as needed by oral route. 05/06/2024 06/11/20 completed sertraline (ZOLOFT) 50 MG tablet 06/01/2023 active oxyCODONE HCl - 5 MG/5ML Oral Solution oxyCODONE HCl - 5 MG/5ML Oral SolutionUse 5-10 ml po q 6 hours as needed for pain Quantity: 400 Refills: Viral Ospina M.D. Start : [id number] 11/19/2022 complete d triamcinolone acetonide 0.5 % topical cream apply a thin layer to the affected area(s) by topical route 2 times per day for 2 weeks 06/26/2022 10/02/20 completed escitalopram 10 mg tablet TAKE 1/2 TABLETS BY MOUTH DAILY 05/19/2022 06/26/20 completed azithromycin 250 mg tablet take 2 tablets (500 mg) by oral route once daily for 1 day then 1 tablet (250 mg) by oral route once daily for 4 days 01/30/2022 06/13/20 active doxycycline hyclate 100 mg capsule take 2 capsule (100 mg) by oral route once for tick bites; extra tabs given 04/18/2021 09/24/20 21 completed Cholecalciferol (VITAMIN D3) 2000 UNITS Cap capsule Take by mouth. 12/18/2020 [facility] Multiple Vitamin (multivitamin) capsule Take by mouth. 12/18/2020 active Vitamin D3 50 mcg (2,000 unit) capsule 50 mcg 09/26/2020 [facility] multivitamin capsule once daily 09/06/20 20 09/26/20 20 active oxycodone 5 mg/5 mL oral solution USE 5-10 ML EVERY 6 HOURS NEEDED FOR PAIN 10/06/20 23 completed erythromycin 5 mg/gram (0.5 %) eye ointment active azithromycin 250 mg tablet active Zepbound 2.5 mg/0.5 mL subcutaneous pen injector active Zepbound 5 mg/0.5 mL subcutaneous pen injector active Zepbound 5 mg/0.5 mL subcutaneous pen injector active sertraline 50 mg tablet active amlodipine 2.5 mg tablet active sertraline 150 mg capsule active amlodipine 5 mg tablet active amlodipine 5 mg tablet TAKE 1 TABLET BY MOUTH EVERY DAY active azelaic acid 15 % topical gel APPLY TO FACE EVERY DAY active azelaic acid 15 % topical gel APPLY TO FACE EVERY DAY active azithromycin 250 mg tablet TAKE 2 TABLETS BY MOUTH TODAY, THEN TAKE 1 TABLET DAILY FOR 4 DAYS DIRECTED active erythromycin 5 mg/gram (0.5 %) eye ointment APPLY 1 CM RIBBON INTO THE LOWER CONJUNCTIVAL SAC(S) IN THE AFFECTED EYE(S) 3 TIMES PER DAY active lorazepam 0.5 mg tablet TAKE 1 TABLET BY MOUTH TWICE A DAY NEEDED FOR ANXIETY active mometasone 0.1 % topical ointment APPLY TO AFFECTED AREAS ON LEFT CHEEK TWICE A DAY X 2 WEEKS ON 1 WEEK OFF REPEAT NEEDED active mometasone 0.1 % topical ointment APPLY TO AFFECTED AREAS ON LEFT CHEEK TWICE A DAY X 2 WEEKS ON 1 WEEK OFF REPEAT NEEDED active sertraline 100 mg tablet TAKE 1 AND 1/2 TABLETS BY MOUTH IN THE EVENING active sertraline 150 mg capsule TAKE 1 CAPSULE BY MOUTH EVERY DAY IN THE EVENING active sertraline 50 mg tablet TAKE 2 TABLETS BY MOUTH EVERY DAY active Medication Administration not documented Medication Administration not documented completed Allergies Allergen Reaction Severity Comment Documented Date Source Statu s PENICILLINS HIVES moderate severity [facility] Problems Problem Status Onset Date Problem Type Date of Resoluti on Source Hypertrophy of uterus active 2023-06-02 [facility] Anxiety active 2023-06-02 ProblemAct [facility] Perforation of tympanic membrane active 2023-06-02 ProblemAct [facility] Depression active 2023-06-02 ProblemAct [facility] Hearing loss of left ear active ProblemAct [facility] Amygdalolith active 2023-10-04 ProblemAct [facility] Pain of joint active 2025-06-15 ProblemAct [facility]_ [facility] Obesity active ProblemAct [facility] YCT Osteoarthrosis of the carpometacarpal joint of the thumb active ProblemAct [facility] Body mass index 30+ - obesity active ProblemAct [facility] Impaired fasting glycemia active ProblemAct [facility] Snoring active ProblemAct [facility] Moderate major depression, single episode active ProblemAct [facility] Sleep apnea active ProblemAct [facility] Seborrheic keratosis active 2025-06-15 ProblemAct [facility] Arthritis of right elbow active ProblemAct [facility] Family history of diabetes mellitus active ProblemAct [facility] Vitamin D deficiency active ProblemAct [facility] Hearing loss of right ear active ProblemAct [facility] Family history of Cardiovascular disease active ProblemAct [facility] Prediabetes active ProblemAct [facility] Hypertensive disorder active 2024-06-14 ProblemAct [facility] Body mass index 30+ - obesity active 2025-03-14 ProblemAct [facility] Obstructive sleep apnea syndrome active 2022-03-04 ProblemAct [facility] Immunizations Vaccine Date Source Lot Number Status Prevnar 20 (PF) 0.5 mL intra muscular syringe 06/15/2025 [facility] [id number] completed Prevnar 20 (PF) 0.5 mL intra muscular syringe 06/15/2025 [facility] [id number] completed influenza, seasonal, injecta ble, preservative free 10/17/2024 [facility] [id number] completed influenza, seasonal, injecta ble, preservative free 10/17/2024 [facility] [id number] completed SARS-COV-2 (COVID-19) vaccin e, mRNA, spike protein, LNP, preservative free, tong-sucrose, 30 mcg/0.3 mL dose 10/17/2024 [facility] [id number] completed SARS-COV-2 (COVID-19) vaccin e, mRNA, spike protein, LNP, preservative free, tong-sucrose, 30 mcg/0.3 mL dose 10/17/2024 [facility] [id number] completed Shingrix (PF) 50 mcg/0.5 mL intramuscular suspension, kit 04/05/2024 [facility] [id number] co mpleted Shingrix (PF) 50 mcg/0.5 mL intramuscular suspension, kit 04/05/2024 [facility] [id number] co mpleted Shingrix (PF) 50 mcg/0.5 mL intramuscular suspension, kit 10/06/2023 [facility] [id number] co mpleted Shingrix (PF) 50 mcg/0.5 mL intramuscular suspension, kit 10/06/2023 [facility] [id number] co mpleted Influenza, injectable, quadr ivalent, preservative free 09/02/2023 [facility] [id number] completed Influenza, injectable, quadr ivalent, preservative free 09/02/2023 [facility] [id number] completed SARS-COV-2 (COVID-19) vaccin e, mRNA, spike protein, LNP, preservative free, tong-sucrose, 30 mcg/0.3 mL dose 09/02/2023 [facility] [id number] completed SARS-COV-2 (COVID-19) vaccin e, mRNA, spike protein, LNP, preservative free, tong-sucrose, 30 mcg/0.3 mL dose 09/02/2023 [facility] [id number] completed Influenza, injectable, quadr ivalent, preservative free 09/20/2022 [facility] [id number] completed Influenza, injectable, quadr ivalent, preservative free 09/20/2022 [facility] [id number] completed influenza, seasonal, injectable 09/18/2022 [facility] completed influenza, seasonal, injectable 09/18/2022 [facility] completed SARS-COV-2 (COVID-19) vaccin e, UNSPECIFIED 09/08/2022 [facility] completed SARS-COV-2 (COVID-19) vaccin e, UNSPECIFIED 09/08/2022 [facility] completed Influenza, injectable, quadr ivalent, preservative free 09/24/2021 [facility] [id number] completed Influenza, injectable, quadr ivalent, preservative free 09/24/2021 [facility] [id number] completed SARS-COV-2 (COVID-19) vaccin e, UNSPECIFIED 08/25/2021 [facility] completed SARS-COV-2 (COVID-19) vaccin e, UNSPECIFIED 08/25/2021 [facility] completed SARS-COV-2 (COVID-19) vaccin e, UNSPECIFIED 02/06/2021 [facility] completed SARS-COV-2 (COVID-19) vaccin e, UNSPECIFIED 02/06/2021 [facility] completed SARS-COV-2 (COVID-19) vaccin e, UNSPECIFIED 01/15/2021 [facility] completed SARS-COV-2 (COVID-19) vaccin e, UNSPECIFIED 01/15/2021 [facility] completed influenza, seasonal, injectable 09/06/2020 [facility] completed influenza, seasonal, injectable 09/06/2020 [facility] completed tetanus toxoid, reduced diph theria toxoid, and acellular pertussis vaccine, adsorbed 08/01/2019 [facility] completed tetanus toxoid, reduced diph theria toxoid, and acellular pertussis vaccine, adsorbed 08/01/2019 [facility] completed Encounters Encounter Type Encounter Reason Primary Diagnosis Location Date Ambulatory Mammographic calcification found on diagnostic imaging of breast Mammographic calcification found on diagnostic imaging of breast [facility] 09/21/2025 Ambulatory [facility], [facility] 08/26/2025 Ambulatory [facility], [facility] 08[facility]25/2025 Ambulatory [facility], [facility] 06[facility]15/2025 Ambulatory [facility], [facility] 06[facility]15/2025 Ambulatory [facility], [facility] 06/15/2025 Ambulatory [facility], [facility] 06/15/2025 [facility] 06/15/2025 Ambulatory [facility] 05/16/2025 Ambulatory [facility] 05/10/2025 Ambulatory [facility] 04[facility]11/2025 Ambulatory [facility] 04[facility]11/2025 Ambulatory [facility] 04/11/2025 Ambulatory [facility] 03[facility]14/2025 Ambulatory [facility] 03/14/2025 [facility] Ambulatory [facility] 10[facility]13/2024 [facility] 07[facility]05/2024 [facility] 06/13/2024 Ambulatory [facility], [facility] 06/13/2024 Ambulatory [facility], [facility] 06/12/2024 Ambulatory Gynecologic Exam Gynecologic Exam [facility] 06/07/2024 [facility] 04[facility]04/2024 [facility] 04[facility]04/2024 [facility] 10/06/2023 Ambulatory [facility], [facility] 09/18/2023 Ambulatory Encounter for gynecological examination (general) (routine) without abnormal findings [facility] 06/02/2023 Ambulatory [facility] 02/06/2022 Care Team Organization Name Specialty Phone Email Start Date End Da te [facility] 09/22/2025 [facility] 06/15/2025 [facility] 03/14/2025 08/13/2025 [facility] 09/25/[address] [place] [address], [facility] 09/18/2023 [facility] Alirio [facility] 06/02/2023 [facility] 02/24/2023 07/11/2024 [facility] Jhon Gonsales [facility] 09/30/20222023 [facility] Jacky [facility] 02/06/2022 07/11/[address] [place] [address]
== END 2025-10-02 12:13 | disposition home or self-care (01) ==
LOC: HO.HGS 11:34
PROVIDERS: Visit Provider Surgery
DX: N60.91 Unspecified benign mammary dysplasia of right breast (principal)
CPT/HCPCS: 99204

== ENCOUNTER 2025-10-25 12:53 | Outpatient (REF) | payer OTHER, SELFPAY ==
--- NOTE | ~2025-10-25 | MR_ITS ---
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 COMPARISON: Comparison is made with relevant prior imaging. TECHNIQUE: MR imaging of the breast was performed using T1, T2 and fat saturated techniques. Dynamic multiphase imaging was also performed after the administration of intravenous gadolinium contrast agent. Computer generated 3D reconstruction and enhancement kinetic analysis was ulitized by the radiologist in the interpretation of this examination. FINDINGS: Breast composition: Heterogeneous fibroglandular breast tissue Background parenchymal enhancement: Moderate LEFT BREAST: No suspicious enhancing masses or areas of non mass enhancement. No axillary or internal mammary adenopathy. RIGHT BREAST: There is a 6 x 6 mm oval enhancing mass in the retroareolar region slightly lateral breast series 1043 image 81/130 anterior depth. Otherwise no suspicious enhancing masses or areas of nonmass enhancement. No internal mammary or axillary adenopathy. Review of outside institution right breast prior mammograms in our PACS demonstrate an increasing focal asymmetry in the lower inner breast with increasing grouped amorphous calcifications associated with it. The marker clip from remote biopsy is not within these calcifications and focal asymmetry. Stereotactic core needle biopsy is recommended at this time. Limited views of the chest and abdomen are unremarkable. MR/MR breast BI wo/w con IMPRESSION: Left: No MRI evidence of malignancy. Right: 1. Enhancing oval mass in the retroareolar region anterior depth. Recommend MRI guided core needle biopsy at this time. 2. Grouped amorphous calcifications which are increasing associated with an increasing focal asymmetry in the lower inner breast anterior to middle depth. Recommend stereotactic core needle biopsy at this time for confirmation. These images are from prior outside institution] reviewed today same day. 3. 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 The patient is under the care of a breast surgeon Dr. Godfrey for excision and further management. ASSESSMENT: LEFT BREAST: BI-RADS 1-Negative RIGHT BREAST: BI-RADS 4-Suspicious RECOMMENDATIONS: Right: 1. Recommend MRI guided core needle biopsy of enhancing mass in the retroareolar region of the right breast. 2. Recommend stereotactic core needle biopsy of focal asymmetry with associated grouped amorphous calcifications which are increasing in the lower inner right breast. 3. Recommend breast surgical consultation and excision of atypical ductal hyperplasia bordering DCIS Right upper outer breast. Electronically signed by: Nila Geiger DO 10/26/2025 01:57 PM EST
--- OUTSIDE RECORDS SUMMARY | 2025-10-25 15:19 | XMS_ITS | Clinical Summary ---
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
--- OUTSIDE RECORDS SUMMARY | 2025-10-25 15:20 | XMS_ITS | Continuity of Care Document ---
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 Referral None recorded. Procedures None recorded. Surgeries None recorded. Imaging CT, abdomen, w/o contrast - acute abd pain (RIGHT UPPER QUADRANT) , ct abd w/o contrast recommend ed 2024 025 [facility] - [place], [address] , [place], [address], 08/21/2025 09:21:17 Medication Orders amlodipin e 2.5 mg tablet 2024 025 [facility]/Pharmacy #[id number], [address] [place] [address], [address], 08/04/2025 16:19:07 Patient TargetsNo targets recorded. Patient InstructionsNo instructions recorded. Reason for Referral None Reported. Results Created Date Observation Date Name Description Value Unit Range Abnormal Flag Note LastModifiedBy Organization Detail LastModifiedTime 07/11/2007/11/2025 mg DX- 2D right diagn ostic -rr EXAMIN ATION: RIGHT BREAST DIGITA L DIAGNO STIC 2-D [facility] AL INFORM ATION: Screen ing call back, calcif icatio ns right breast . COMPAR GAYLE: Most recent mammog talha on 025 and priors dating back to 006. TECHNI QUE: Comput er-aid ed detect ion was utiliz ed by the radiol ogist in the interp retati on of this examin ation. RIGHT diagno stic mammog talha with 2-D spot magnif icatio n CC/ML [...] which six-mo nth follow -up 2-D mammog talha is advise d to paul graves. A separa te probab ly benign group of puncta te calcif icatio ns in the lower inner breast middle depth was previo usly biopsy -prove n benign with biopsy clip along anteri or aspect . Given slight increa sed number of calcif icatio ns, follow -up 2-D mammog talha of this group is also advise d. Other calcif icatio ns are benign . IMPRES HAKEEM: 1. Probab ly benign calcif icatio ns right upper outer breast ; follow -up 2-D mammog talha advise d. 2. Probab ly benign calcif icatio ns right lower inner breast ; follow -up 2-D mammog tahla advise d. FINAL ASSESS MENT: BI-RAD S 3: Probab ly Benign . RECOMM ENDATI ONS: Short Interv al (6-thu) Follow -up Right 2-D diagno stic mammog talha The patien t was notifi ed of [...] patien t to us, Gabriella alexander MD [id number] (Elect shruti matias Signed - 2024 13:45) Copy: RUTHIE PORTILLO NG PHYSIC IANS- OB-BILINGUAL RESEARCH INTERVIEWER [facility] [place] [address] [facility] [place] [address] [phone] [facility] ([facility]) [address] [facility] [address], [place], [address], 08/04/2025 16:51:52 08/21/20 25 08/16/2025 CT, abdom [...] ed on the techno logist s workst ation. This CT examin ation was perfor med using dose optimi zation [...] extrem ities or head) *Use of iterat parish recons tructi on techni que DLP: 174.72 [...] MD 2024 09:18 AM EDT RP Workst ation: [id number] Thank you for referr ing your patien t to us, Prosper alcazra MD [phone] (Elect shruti matias Signed - 2024 09:18) [facility] Radiology ([facility]) [address] [address], [place], [address], 08/21/2025 10:46:21 09/04/20 25 07/11/2025 mg DX- [...] h follow -up was advise d. Dionisio alcazar, on furthe r review stereo tactic biopsy has now been advise d for defini tive histol ogy. I discus sed this biopsy recomm endati on with the nishant t. Nishant langston has declin ed biopsy at this time and prefer s imagin g survei llance with 6-samuel h follow -up mammog talha. This is reason able. Will code exam as BI-RAD S 4 to docume nt biopsy advise d and discus sed with nishant langston. IMPRES HAKEEM: Calcif icatio ns right outer upper breast , stereo tactic biopsy has been advise d. Nishant langston had declin ed biopsy at this time. Prefer s 6 month follow -up. FINAL ASSESS MENT: BI-RAD S 4: Suspic ious. RECOMM ENDATI ONS: Biopsy 1. Stereo tactic biopsy of calcif icatio ns right upper outer breast . 2. If biopsy remain s deferr ed, then 6 month follow -up 2-D mammog talha advise d. 2. Follow -up 2-D mammog talha advise d for calcif icatio ns right lower inner breast . 3. This addend um was discus sed with patijacobo t on 2024 1:15 PM. 4. Recomm endati on was given to Ellen FRIAS on 2024 at 2:03pm . Electr onical ly signed by: Gabriella alexander MD 2024 02:17 PM EDT RP Workst ation: [id number] Thank you for referr ing your patien t to us, Gabriella alexander MD [phone] (Elect shruti matias Signed - 2024 14:17) Copy: RUTHIE NEAL PHYSIC IANS- OB-BILINGUAL RESEARCH INTERVIEWER [facility] [place] [address] [facility] [place] [address] [phone] Origin al Report : EXAMIN ATION: RIGHT BREAST DIGITA L DIAGNO STIC 2-D [facility] AL INFORM ATION: Screen ing call back, calcif icatio ns right breast . COMPAR GAYLE: Most recent mammog talha on 025 and priors dating back to 006. TECHNI QUE: Comput er-aid ed detect ion was utiliz ed by the radiol ogist in the interp retati on of this examin ation. RIGHT diagno stic mammog talha with 2-D spot magnif icatio n CC/ML [...] which six-mo nth follow -up 2-D mammog talha is advise d to paul graves. A separa te probab ly benign group of puncta te calcif icatio ns in the lower inner breast middle depth was previo usly biopsy -prove n benign with biopsy clip along anteri or aspect . Given slight increa sed number of calcif icatio ns, follow -up 2-D mammog talha of this group is also advise d. Other calcif icatio ns are benign . IMPRES HAKEEM: 1. Probab ly benign calcif icatio ns right upper outer breast ; follow -up 2-D mammog talha advise d. 2. Probab ly benign calcif icatio ns right lower inner breast ; follow -up 2-D mammog talha advise d. FINAL ASSESS MENT: BI-RAD S 3: Probab ly Benign . RECOMM ENDATI ONS: Short Interv al (6-thu) Follow -up Right 2-D diagno stic mammog talha The patien t was notifi ed of [...] patien t to us, Gabriella alexander MD [phone] (Elect shruti matias Signed - 2024 13:45) Copy: RUTHIE NEAL PHYSIC IANS- OB-BILINGUAL RESEARCH INTERVIEWER [facility] [place] [address] [place] [address] [phone] [facility] Rad[facility] ([facility]) [address] [facility] [address], [place], [address], 09/04/2025 15:13:24 Result Notes None recorded. Problems Name Problem SNOMED Code Status Onset Date Resolution Date Notes Provider Name and Address Organization Details Recorded Time Active immuniza tion Completed 10/04/2023 Problem Code: Z23; Problem Code Type: ICD-10; [place], [address] , [facility] 13:13:29 Adult health examinat ion Active Problem Code: Z00.00; Problem Code Type: ICD-10; [place], [address] , [facility] 13:13:04 Body mass index 30+ - obesity 723197120 Active Problem Code: Z68.39; Problem Code Type: ICD-10; [place], [address] , [facility] 13:13:04 Obesity 064262768 Active Problem Code: E66.9; Problem Code Type: ICD-10; DAPHNE Cortez [place] [address] , [facility] 13:13:04 Prediabe morgan 160246004 Active Problem Code: R73.03; Problem Code Type: ICD-10; DAPHNE Cortez [place] [address] , [facility] 3 13:12:29 Impaired fasting glycemia 894260966 Active Problem Code: R73.01; Problem Code Type: ICD-10; Maryuri Sawyer APRN [address] [facility], [place], [address] , [facility] 3 13:13:04 Sleep apnea 69591741 Active wears CPAP Problem Code: G47.30; Problem Code Type: ICD-10; Maryuri Sawyer APRN [address] [facility], [place], [address] , [facility] 3 13:13:04 Snoring 58844305 Active Problem Code: R06.83; Problem Code Type: ICD-10; Maryuri Sawyer APRN [address] [facility], [place], [address] , [facility] 3 13:13:04 Family history of Cardiova scular disease 384473281 Active Problem Code: Z82.49; Problem Code Type: ICD-10; Maryuri Sawyer APRN [address] [facility], [place], [address] , [facility] 3 13:13:04 Moderate major depressi on, single episode 68083293 Active Problem Code: F32.1; Problem Code Type: ICD-10; Maryuri Sawyer APRN [address] [facility], [place], [address] , [facility] 3 13:13:04 Chronic disease of tonsils AND/OR adenoids 79360535 Completed 10/04/2023 Problem Code: J35.8; Problem Code Type: ICD-10; Maryuri Sawyer APRN [address] [facility], [place], [address] , [facility] 3 13:13:29 Osteoart hrosis of the carpomet acarpal joint of the thumb 16593812 Active left Problem Code: M18.9; Problem Code Type: ICD-10; Maryuri Sawyer APRN [address] [facility], [place], [address] , [facility] 3 13:13:04 Arthriti s of right elbow 84986471881 23208 Active Problem Code: M13.821; Problem Code Type: ICD-10; Maryuri Sawyer APRN [address] [facility], [place], [address] , [facility] 3 13:13:04 Family history of diabetes mellitus 684197130 Active Problem Code: Z83.3; Problem Code Type: ICD-10; Maryuri Sawyer APRN [address] [facility], [place], [address] , [facility] 3 13:13:04 Vitamin D deficien cy 56936604 Active Problem Code: E55.9; Problem Code Type: ICD-10; Maryuri Sawyer APRN [address] [facility], [place], [address] , [facility] 3 13:13:04 Hearing loss of right ear 359722928 Active MUMPS AT AGE 2 Problem Code: H91.91; Problem Code Type: ICD-10; Maryuri Sawyer APRN [address] [facility], [place], [address] , [facility] 3 13:13:04 Hearing loss of left ear 301173393 Active Problem Code: H91.92; Problem Code Type: ICD-10; Maryuri Sawyer APRN [address] [facility], [place], [address] , [facility] 3 13:13:04 Allergic contact dermatit is caused by plant material [id number] 767340 Completed 10/04/2023 Problem Code: L23.7; Problem Code Type: ICD-10; Maryuri Sawyer APRN [address] [facility], [place], [address] , [facility] 3 13:13:29 Injury of head 99626847 Completed 10/04/2023 Problem Code: S09.90XA ; Problem Code Type: ICD-10; Maryuri Sawyer APRN [address] [place], [address] , [facility] 3 13:13:29 Acute tonsilli tis 87436461 Completed 10/04/2023 Problem Code: J03.90; Problem Code Type: ICD-10; Maryuri Sawyer APRN [address] [facility], [place], [address] , [facility] 3 13:13:29 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/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; s/p 2 lesions excised 2003 Problem Code: C51.9; Problem Code Type: ICD-10; Not Available [facility] 3 03:26:50 Basal cell carcinom a of skin 676319262 Completed 07/31/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 , excised 2016 Problem Code: C44.91; Problem Code Type: ICD-10; Not Available [facility] 3 03:26:50 Bilatera l carpal tunnel syndrome [id number] 600413 Completed 07/31/2023 R is worse than L ;surgery 09/2020 Problem Code: G56.03; Problem Code Type: ICD-10; Not Available [facility] 3 03:26:50 Amygdalo lith 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 Procedures Surgical History Date Name Laterality Status Provider Name and Address Organization Details Recorded Time 2024 [id number] completed Maryuri Sawyer APRN [address] [facility], [place], [address] , [facility] 14:51:53 2024 EGFPMammogramReport Z1231 completed Maryuri Sawyer APRN [address] [facility], [place], [address] , [facility] 5 14:52:14 2024 EGFPCervicalCancerScreen Z124 completed Maryuri Sawyer APRN [address] [place], [address] , [facility] 5 14:52:08 2024 EGFPDepScreen Neg Z1389 completed Maryuri Sawyer APRN [address] [place], [address] , [facility] 5 14:52:15 2022 Most Recent Mammogram completed Maryuri Sawyer APRN [address] [place], [address] , [facility] 5 14:40:07 2022 Date of Last Pap Smear completed Maryuri Sawyer APRN [address] [place], [address] , [facility] 5 14:39:46 2016 Colonoscopy completed Maryuri Sawyer APRN [address] [place], [address] , [facility] 5 10:33:30 Imaging Results None recorded. Procedure Notes None recorded. Medical Equipment None Reported. Allergies Allergen ID Allergen Name Allergen Category Reaction Reaction Severity Criticality Documentation Date Start Date Code Code System Note Provider Name and Address Organization Details Recorded Time 93425 Product containin g penicilli n (product) medicatio n hives moderate Not available 07/31/20232019 16751 8001 SNOMED Not Available [facility] 3 01:51:31 Medications Name Sig Start [...] Not Available Not Available Vitals Date Recorded Heart rate Heart rate Heart rate Systolic And Diastolic Systolic And Diastolic Systolic And Diastolic Systolic And Diastolic Provider Name and Address Organization Details Last Updated DateTime 58 /min 55 /min 48 /min 117/59 mm[Hg] 118/60 mm[Hg] 127/62 mm[Hg] 132/82 mm[Hg] Maryuri Sawyer APRN [address] [facility], [place], [address], [facility] 16:31:00 Date Recorded Body height Oxygen saturation Body temperature Body mass index (BMI) Body weight Provider Name and Address Organization Details Last Updated DateTime 08/04/2025 157.48 cm 97 % 96.3 [degF] 33.6 kg/m2 91974.2 g Nona Fierro [facility] 16:04:51 Social History Question Answer Notes LastModified by Organizat ion Details LastModified Time Tobacco Smoking Status Never Smoker Not Available [facility] 08/10/2023 11:47:47 Do You Have An Advance Directive? No Information not available 10/04/2023 What Is Your Advocate's Name? Esequiel [email or web address] Information not available 06/15/2025 What Is Your Relation To The Advocate? Information not available 10/04/2023 Do You Wear A Helmet When Biking? No Doesnt Bike [email or web address] Information not available 10/06/2023 Are You Blind [...] Or The Highest Degree You Have Received? VY97134-3 [email or web address] Information not available 10/06/2023 Have There Been Any Changes To Your Family Or Social Situation? No [email or web address] Information not available 10/06/2023 What Is The Fluoride Status Of Your Home? Non-fluoridated [email or web address] Information not available 10/06/2023 Are There Any Guns Present In Your Home? No [email or web address] Information not available 10/06/2023 Which Of Your Hands Is Dominant? Right [email or web address] Information not available 10/06/2023 Where Do You Live? [facility] [email or web address] Information not available 10/06/2023 What Was The Date Of Your Most Recent Tobacco Screening? 06/15/2025 Information not available 06/15/2025 How Many Children Do You Have? 1 1 Daughter Information not available 10/04/2023 Do You Have A Patient Advocate? Yes Information not available 10/04/2023 Do You Have Any Pets? Yes [email or web address] Information not available 10/06/2023 What Is Your Relationship Status? Information not available 10/04/2023 Do You Use Your Seat Belt Or Car Seat Routinely? Yes [email or web address] Information not available 10/06/2023 Are You Sexually Active? Yes [email or web address] Information not available 10/06/2023 Do You Have Any Siblings? 1 [email or web address] Information not available 10/06/2023 Do You Have Smoke And Carbon Monoxide Detectors In Your Home? Yes [email or web address] Information not available 10/06/2023 Are There Any Smokers In Your House? No [email or web address] Information not available 10/06/2023 Do You Participate In Social Media? No [email or web address] Information not available 10/06/2023 What Types Of Sporting Activities Do You Participate In? Walks, Yardwork Information not available 10/04/2023 Do You Use Sunscreen Routinely? No [email or web address] Information not available 10/06/2023 Are You Currently [...] 10/04/2023 What is your occupation? [employer] @ [employer] Information not available 10/04/2023 What is your exercise level? Occasional [email or web address] Information not available 10/06/2023 What type of noise exposure are you exposed to? noExposureToExcessiveNoise [email or web address] Infor mation not available 10/06/2023 Mental Status Question Answer Note LastModified by Organizat ion Details LastModified Time Do you feel stressed (tense, restless, nervous, or anxious, or unable to sleep at night)? [id number] Information not available 10/06/2023 Do you have difficulty concentrating, remembering or making decisions? Yes somtimes [email or web address] Information not available 10/06/2023 Family History Relationship [...] : from heart and respiratory failure, smoker, DC at age 50, benign colon polyps, RA [...] Time SARS-COV-2 (COVID-19) vaccine, UNSPECIFIED 1 completed Maryuri Sawyer APRN [address] [facility], [place], [address], [facility] 10/06/2023 16:25:20 SARS-COV-2 (COVID-19) vaccine, UNSPECIFIED 1 completed Maryuri Sawyer APRN [address] [facility], [place], [address], [facility] 10/06/2023 16:25:20 Influenza, split virus, trivalent, preservative 2 completed Maryuri Sawyer APRN [address] [facility], [place], [address], [facility] 10/06/2023 16:25:20 Influenza, split virus, trivalent, preservative 0 completed Maryuri Sawyer APRN [address] [facility], [place], [address], [employer] [facility] 10/06/2023 16:25:20 SARS-COV-2 (COVID-19) vaccine, UNSPECIFIED 2 completed Maryuri Sawyer APRN [address] [facility], [place], [address], [employer] [facility] 10/06/2023 16:25:20 Influenza, split virus, quadrivalent, PF 1 completed Dave philippe, [facility] 09/04/2023 14:55:03 SARS-COV-2 (COVID-19) vaccine, UNSPECIFIED 1 completed Maryuri Sawyer APRN [address] [facility], [place], [address], [employer] [facility] 10/06/2023 16:25:20 Tdap 9 completed Maryuri Sawyer APRN [address] [facility], [place], [address], [employer] [facility] 10/06/2023 16:25:20 Pneumococcal conjugate PCV20, polysaccharide REC847 conjugate, adjuvant, PF 5 completed Maryuri Sawyer APRN [address] [facility], [place], [address], [employer] [facility] 06/15/2025 14:54:45 COVID-19, mRNA, LNP-S, PF, tong-sucrose, 30 mcg/0.3 mL 3 completed Maryuri Sawyer APRN [address] [facility], [place], [address], [employer] [facility] 10/06/2023 16:25:20 Influenza, split virus, quadrivalent, PF 3 completed Maryuri Sawyer APRN [address] [facility], [place], [address], [employer] [facility] 10/06/2023 16:25:20 Influenza, split virus, quadrivalent, PF 2 completed Maryuri Sawyer APRN [address] [facility], [place], [address], [facility] 10/06/2023 16:25:20 COVID-19, mRNA, LNP-S, PF, tong-sucrose, 30 mcg/0.3 mL 4 completed Cissy Bogli null, [facility] 10/19/2024 07:15:22 Influenza, split virus, trivalent, PF 4 completed Cissy Bogli null, [facility] 10/19/2024 07:15:22 Influenza, recombinant, trivalent, PF 5 completed Cissy Bogli null, [facility] 09/07/2025 15:12:50 zoster recombinant 3 completed Maryuri Sawyer APRN [address] [facility], [place], [address], [facility] 10/06/2023 19:50:17 zoster recombinant 4 completed Krystal Grigsby null, [facility] 04/05/2024 08:41:43 Past Encounters Encounter ID Performer Location Encounter Start Date Encounter Closed Date Diagnosis/Indication Diagnosis SNOMED-CT Code Diagnosis ICD10 Code Diagnosis IMO Codes Diagnosis Note [id number] Maryuri Sawyer APRN [facility] [address] [place] [address] 08/04/2025 15:59:03 08/04/2025 16:30:21 Hypertensive disorder 69292742 I10 pt has had notable weight loss with zepboundbp @ home soft and hr lowdiscuss ion that low HR - may be r/t her medication s - we need to evaluate this to see if we can adjust let's trial 2.5mg amlodipine with goal bp 120-130/70 s; goal hr 50sekg reviewed from loom blower, consider re-eval with cardio with possible infarctekg from 2022 compared and also sinus flako (no mention of infarct)pt saw cardio in 2023, we can revisit zxqowg05/1 06/15, Cardiology Note, Trip Marshall MD, fam hx CAD: EKG, NSR 64 bpm, TTE, nml, EF 60-65%, BP 120/68mm Hg Acute abdominal pain 116 042243 R10.9 96351 based on hx and presentati on: possibilit [...] by Organization Details LastModified Time None Recorded Payers Encounter Date Sequence Insurance Name Policy Number Policy Posey Covered Member ID Posey Member ID Guarantor Name 08/04/2025 1 [facility] [id number] Sasha Miranda [id number] Sasha Miranda Notes Date Note Type Note Provider Name and Address Organization Details Recorded Time 08/04/2025 text/html ROS as noted in the HPI Thursday @ 11pm had severe mid abd, front of body/chest, shoulder and back painsevere yjgpjoyog81/10 painfelt very unwellcalled 911emt arrived and assesseddid [...] in 2023 and was told all normal Maryuri Sawyer, MATH AND SCIENCES DEPARTMENT CHAIR [address] [facility], [place], [address], [place] [facility] 08/04/2025 17:12:29 OBGyn Episode No OBEpisode recorded.
--- OUTSIDE RECORDS SUMMARY | 2025-10-25 15:20 | XMS_ITS | Clinical Summary ---
Author Organization [facility] Address [address] [place] [address] Care Team Providers Care Supervisor [employer] Name Role Phone Maryuri Sawyer NP Primary Care Provider [phone] Allergies Active Allergy Reactions Criticality Noted Date [...] EDT Hospital Encounter OP SPECIMEN LAB [address] [place] [address] Leslie Bailey MD Discharge Disposition: Home or [...] 06/07/2024 9:05 AM EDT Plan of Treatment Upcoming Encounters Date Type Department Care Team (Late st Contact Info) Description 11/07/2025 2:30 PM EST Office Visit [facility] Department Of Portfolio Director [place] [address] [place] [phone] Kylah Damon MD [address] [place] [address] Health Maintenance Due Date Last Done Comments Hepatitis C Virus Screening 1965 HIV Screening 1976 DTaP/Tdap/Td Vaccines (1 - Tdap) 1982 Pneumococcal Vaccines 50+ (1 of 1 - PCV) 2013 Zoster (Shingles) Vaccine (1 of 2) 2013 Influenza Vaccine 06/23/2025 09/02/2023, , 09/24/2021 COVID-19 Vaccine ( - season) 2025 09/02/2023, [...] WITHOUT CONTRAST Routine 08/16/2025 11:37 AM EDT THINPREP PAP(AIRLINE MANAGER) HPV SCR RFX HPV 16,18/45 Routine 06/02/2023 [...] referring your patient to us, Leslie Bailey [phone] (Electronically Signed - 09/21/2025 13:52) Narrative 09/21/2025 [...] by: Steve Patel MD 09/26/2025 12:13 PM [facility] RP Thank you for referring your patient to us, Steve Patel MD [phone] (Electronically Signed - 09/26/2025 12:13) Original Report: [...] skin incision was made, a 9 G Joberatoros vacuum-assisted device was advanced to the calcifications. [...] additional recommendations will be made. Procedure Note Lelsie Bailey MD / Steve Patel MD - [...] Patel MD 09/26/2025 12:13 PM EST RPWorkstation: [id number] Thank you for referring your patient to us, Steve Patel MD [phone] (Electronically Signed - 09/26/2025 12:13) Original Report: [...] small skinincision was made, a 9 G Joberatoros vacuum-assisted device was advanced to the calcifications. [...] Bailey MD 09/21/2025 01:52 PM EDT RPWorkstation: [id number] Thank you for referring your patient to us, Leslie Bailey [phone] (Electronically Signed - 09/21/2025 13:52) us Kylah Damon MD IMG LEGACY PROCEDURES Edited R [...] referring your patient to us, Leslie Bailey [phone] (Electronically Signed - 09/21/2025 13:52) Narrative 09/21/2025 [...] by: Steve Patel MD 09/26/2025 12:13 PM [facility] RP Thank you for referring your patient to us, Steve Patel MD [phone] (Electronically Signed - 09/26/2025 12:13) Original Report: [...] skin incision was made, a 9 G MedRunner vacuum-assisted device was advanced to the calcifications. [...] recommendations will be made. Procedure Note Leslie Baiely MD / Steve Patel MD - 09/26/2025 [...] Patel MD 09/26/2025 12:13 PM EST RPWorkstation: [id number] Thank you for referring your patient to us, Steve Patel MD [phone] (Electronically Signed - 09/26/2025 12:13) Original Report: [...] small skinincision was made, a 9 G MedRunner vacuum-assisted device was advanced to the calcifications. [...] Bailey MD 09/21/2025 01:52 PM EDT RPWorkstation: [id number] Thank you for referring your patient to us, Leslie Bailey [phone] (Electronically Signed - 09/21/2025 13:52) us Kylah Damon MD IMG LEGACY PROCEDURES Edited R [...] referring your patient to us, Leslie Bailey [phone] (Electronically Signed - 09/21/2025 13:52) Narrative 09/21/2025 [...] by: Steve Patel MD 09/26/2025 12:13 PM [facility] Thank you for referring your patient to us, Steve Patel MD [phone] (Electronically Signed - 09/26/2025 12:13) Original Report: [...] skin incision was made, a 9 G MedRunner vacuum-assisted device was advanced to the calcifications. [...] Patel MD 09/26/2025 12:13 PM EST RPWorkstation: [id number] Thank you for referring your patient to us, Steve Patel MD [phone] (Electronically Signed - 09/26/2025 12:13) Original Report: [...] small skinincision was made, a 9 G MedRunner vacuum-assisted device was advanced to the calcifications. [...] Bailey MD 09/21/2025 01:52 PM EDT RPWorkstation: [id number] Thank you for referring your patient to us, Leslie Bailey [phone] (Electronically Signed - 09/21/2025 13:52) Kylah Damon MD IMG MAMMOGRAPHY ORDERABLES Daniel elvira Result - Final * Pathology (09/21/2025 12:00 AM EDT) Report [facility]-0254 CLIA ID [id number] [address] [place] [phone] Surgical Pathology Report PATIENT NAME: MICHELE MIRANDA [facility] REC NUMBER: [id number] (AGE): 1965 (Age: 59) SPECIMEN NUMBER: [id number] DATE OBTAINED: 09/21/2025 DIAGNOSIS RIGHT BREAST, CORE BIOPSY AT 9 O'CLOCK: SEVERELY ATYPICAL DUCTAL HYPERPLASIA, 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 SEE COMMENT. 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 Although it shows features consistent with low grade DCIS, quantitatively it is too scant (two ducts) to establish a definitive diagnosis of DCIS and final diagnosis is deferred to evaluation of the excision specimen. [id number] Clinical Information and History: Right breast calcifications [...] ischemic time is within the required parameters. [facility] 09/21/2025 09/22/2025 7:0 1 AM [...] your patient to us, Prosper Steve MD [phone] (Electronically Signed - 08/21/2025 09:18) Procedure Note Prosper Steve MD - 08/21/2025 EXAMINATION: CT ABDOMEN WITHOUT CONTRAST CLINICAL INFORMATION: Acute abdominal pain. COMPARISON: None available. TECHNIQUE: Contiguous axial thin section helical images of the abdomen were performedwithout contrast. Sagittal and coronal reformatted images were obtained ont technologists workstation. This CT examination was performed [...] Steve MD 08/21/2025 09:18 AM EDT RPWorkstation: [id number] Thank you for referring your patient to us, Prosper Steve MD [phone] (Electronically Signed - 08/21/2025 09:18) us Maryuri Sawyer NP IMG LEGACY PROCEDURES Final Resu lt * ThinPrep Pap HPV 16,18/45 Reflex on all Dx (06/02/2023 10:14 AM EDT) 06/02/2023 10:1 4 AM EDT Narrative [facility] - 06/04/2023 8:37 AM EDT To view the final report click the scan hyperlink below. us Kylah Damon MD LAB AMB PATH/CYTO ORDERABLES F inal Result [facility] [address] from Last 3 Months or Most Recently Relevant to Health Maintenance Insurance [facility] Member Subscriber Plan / Payer (Ef fective 2016-Present) Name:Michele Miranda Relation to Subscriber:Spouse Name:CATHY MIRANDA Date of :1959 (Home) Address: [address] [place] [phone] Payer ID:[id number] (NAIC) Type:Not on file Address: [address] [place] [id number] Care Teams Supervisor [employer] Relationship Specialty Start Date End Date Maryuri Sawyer NP [address] [place] [id number] PCP - General 06/07/24
--- OUTSIDE RECORDS SUMMARY | 2025-10-25 15:20 | XMS_ITS | Data Portability ---
Author Organization [place] - [facility] m[facility], [facility] Address [address] [place] [phone] Assessment No assessment recorded. Plan of Treatment Reminders Order Date Submit Date Provider Last Modified By Organization Details Last Modified Time Details Appointments None recorded. Lab None recorded. Referral None recorded. Procedures None recorded. Surgeries None recorded. Imaging None recorded. Medication Orders Zepbound 5 mg/0.5 mL subcutaneou s pen injector 2024 025 [facility] #[id number], [address] [place] [address], [address], 14:25:16 Zepbound 2.5 mg/0.5 mL subcutaneou s pen injector 2024 025 dwitkins Not available 14:41:01 Patient TargetsNo targets recorded. Patient Instructions Encounter Date Encounter Id Patient Instructions Last Modified By Organization Details Last Modified Time 03/14/2025 [id number] CPAP (5-20) Q HS Regular mask and equipment changes Avoid alcohol or other potentially sedating agents prior to bed Zepbound 2.2 mg SQ injection Q week x 3 weeks Diet and exercise Covid precautions 4 week follow up for weight check dwitkins Not available 03/14/2025 14:42:43 04/11/2025 [id number] CPAP (5-20) Q HS Regular mask and [...] Details Recorded Time Obstructive sleep apnea syndrome 41155283 Active 2021 DANIEL (obstr uctive sleep apnea) DANIEL on CPAP Dimitry Halldavid philippe [employer] 5 08:40:38 Body mass index 30+ - obesity 783554117 Active 2024 Bela Reyes, DAPHNE [address] [place], [address], [employer] 5 13:19:34 Problem Notes None recorded. Procedures Surgical History Date Name Laterality Status Provider Name and Address Organization Details Recorded Time 5 Patient Billing Time cancelled Dimitry Halldavid [facility] 05/05/2025 11:32:57 5 Patient Billing Time completed Dimitry Isabeldavid [employer] 04/06/2025 08:14:43 5 Patient Billing Time completed Bela Reyes, DAPHNE [address] [place], [address], [employer] 03/14/2025 13:19:09 Imaging Results None recorded. [...] Updated DateTime 03/14/2025 124/76 mm[Hg] Bela Reyes, MOLD SHIFTER [address] [place], [address], [employer] 03/14/2025 14:41:34 Date Recorded Body height Body temperature Body mass index (BMI) Body weight Heart rate Oxygen saturation Provider Name and Address Organization Details Last Updated DateTime 5 160 cm 96.7 [degF] 39.9 kg/m2 109296. 28 g 59 /min 97 % FIONA WETZEL [facility] [employer] 5 09:33:44 Date Recorded Body height Body temperature Body mass index (BMI) Body weight Heart rate Oxygen saturation Respiratory rate Provider Name and Address Organization Details Last Updated DateTime 5 160.02 cm 98 [degF] 39 kg/m2 12142.3 2 g 68 /min 98 % 14 /min Dimitry Del Toro [facility] [employer] 5 10:24:13 Social History None recorded. Functional Status None recorded. Mental Status None recorded. Family History Nothing Reported. Medical History No medical history recorded. Gynecological HistoryNo gynecological history recorded. Obstetrics History GPAL:G 0 P 0 0 0 0 Immunizations Vaccine Type Date Status Note Provider Nam e and Address Organization Details Recorded Time Influenza, split virus, quadrivalent, PF 09/20/2022 completed Not Available [facility] 4 23:08:27 Past Encounters Encounter ID Performer Location Encounter Start Date Encounter Closed Date Diagnosis/Indication Diagnosis SNOMED-CT Code Diagnosis ICD10 Code Diagnosis IMO Codes Diagnosis Note [id number] Bela Reyes APRN [facility] [address] [phone] 03/14/2025 09:25:55 03/23/2025 15:53:10 Obstructive sleep apnea syndrome 02880381 G47.33 8930317 385607 Severe, positional apneaCouns eled on DANIEL and potential health risksRevie [facility] sleep hygieneThi s patient displays signs [...] therapy Body mass index 30+ - obesity 907505898 E66.9 3911165 Dietary modificati on and age appropriat e [...] provided- to call insurance to determine coverage [id number] Bela Reyes APRN [facility] [address] [address] 04/11/2025 08:47:15 04/18/2025 15:42:41 Obstructive sleep apnea syndrome 78019989 G47.33 1245741 907730 Severe, positional apneaCouns eled on DANIEL and potential health risksRe[facility] sleep hygieneThi s patient displays signs and [...] drive or operate machinery while drowsy. 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 Positive for age, snoring, apnea, BMI and fatigue.Bryant 13She underwent a one night study and slept for 5.92 hours with latency of 2 minutes and 84% efficiency.Snoring > 30 dB, 36%Mean SpO2 96%AHI 29RDI 47 Bela Reyes, MOLD SHIFTER [address] [place], [address], [employer] 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 Positive for age, snoring, apnea, BMI and fatigue.Bryant 13She underwent a one night study and slept for 5.92 hours with latency of 2 minutes and 84% efficiency.Snoring > 30 dB, 36%Mean SpO2 96%AHI 29RDI 47 Bela Reyes, MOLD SHIFTER [address] [place], [address], [employer] 04/16/2025 14:27:13 OBGyn Episode No OBEpisode recorded.
--- OUTSIDE RECORDS SUMMARY | 2025-10-25 15:20 | XMS_ITS | Data Portability ---
Author Organization [place] - [facility], [facility] Address [address] [place] [address] Care Team Providers Care Marketing Project Lead Name Role Phone RUTHIE ARIAS Brusher Assessment Encounter Date Assessment Date Assessment LastModified [...] Lab CBC w/ auto diff 2024 025 [employer] [facility], [address], [address], [place], [address], 06/23/2025 22:36:06 CMP, serum or plasma 2024 025 [employer] [facility], [address], [address], [place], [address], 06/23/2025 22:36:04 microalbu min/creat inine, mass ratio, urine 2024 025 [facility], [address] [place] [address], [address], [place], [address], 06/23/2025 22:36:05 HbA1c (hemoglob in A1c), blood 2024 025 [facility], [address] [place] [address], [address], [place], [address], 06/23/2025 22:36:11 TSH, serum or plasma 2024 025 [facility], [address] [place] [address], [address], [place], [address], 06/23/2025 22:36:09 lipid panel, serum 2024 025 [facility], [address] [place] [address], [address], [place], [address], 06/23/2025 22:36:03 C-reactiv e protein, quantitat finn, serum or plasma 2024 025 [facility], [address] [place] [address], [address], [place], [address], 06/23/2025 22:36:07 erythrocy te sedimenta tion rate by leannre n method 2024 025 [facility], [address] [place] [address], [address], [place], [address], 06/23/2025 22:36:06 rf (rheumato id factor), serum 2024 025 [place] [facility], [address] [place] [address], [address], [place], [address], 06/23/2025 22:36:07 NEREIDA (antinucl ear antibodie s) screen, serum 2024 025 [facility], [address], [address], [place], [address], 06/23/2025 22:36:09 ccp (cyclic citrullin ated peptide) igg, serum 2024 025 [facility], [address], [address], [place], [address], 06/23/2025 22:36:08 factor V mutation, blood or tissue 2024 025 [facility], [address], [address], [place], [address], 06/23/2025 22:36:05 vitamin D, 25-hydrox y, total, serum 2024 025 [facility], [address], [address], [place], [address], 06/23/2025 22:36:10 rapid strep group A, throat 2024 025 [facility], [address], [place], [address], 2024 09:36:03 rsv (respirat ory syncytial virus), rapid, nasophary ngeal 2024 025 [facility], [address], [place], [address], 2024 09:36:03 influenza virus A + B and SARS CoV 2 and SARS-rela elvira CoV RNA panel, JORGE+probe , respirato ry specimen 2024 025 [facility], [address] [facility] [place], [address], 2024 09:36:03 Referral None recorded. Procedures None recorded. Surgeries None recorded. Imaging CT, abdomen, w/o contrast - acute abd pain (RIGHT UPPER QUADRANT) , ct abd w/o contrast recommend ed 2024 025 [facility] [place], [address], [place], [address], 08/21/2025 09:21:17 Medication Orders amlodipin e 2.5 mg tablet 2024 025 [id number] [address] [place], [address], 08/04/2025 16:19:07 sertralin e 50 mg tablet 2024 025 [facility] [address] [place] [address], [address], 06/15/2025 14:54:45 Zepbound 5 mg/0.5 mL subcutane ous pen injector 2024 025 [facility] [address] [place], [address], 08/04/2025 16:16:08 azithromy reema 250 mg tablet 2024 025 [facility] [address] [place], [address], 2024 09:35:21 erythromy reema 5 mg/gram (0.5 %) eye ointment 2024 025 [facility] #0084, [address] [place], [address], 2024 09:36:05 sertralin e 150 mg capsule 2023 024 [facility]armacy #0084, [address] [place], [address], 05/12/2024 14:32:15 amlodipin e 5 mg tablet 2023 024 [facility], [address] [place], [address], 06/03/2024 10:26:27 Patient TargetsNo targets recorded. Patient [...] men Influenza A negati ve Not Available [facility] [address], [place], [address], 2024 09:34:17 12/12/19 25 2024 influ radhika virus A + B and SARS CoV 2 and SARS- relat ed CoV RNA panel , JORGE+p robe, respi rator y speci men Influenza B negati ve Not Available [facility] [address], [place], [address], 2024 09:34:17 12/12/19 25 2024 influ radhika virus A + B and SARS CoV 2 and SARS- relat ed CoV RNA panel , JORGE+p robe, respi rator y speci men Influenza A+B negati ve Not Available [facility] [address], [place], [address], 2024 09:34:17 12/12/19 25 2024 influ radhika virus A + B and SARS CoV 2 and SARS- relat ed CoV RNA panel , JORGE+p robe, respi rator y speci men COVID negati ve Not Available [facility] [address], [place], [address], 2024 09:34:17 12/12/19 25 2024 rsv (resp irato ry syncy tial virus ), rapid , nasop haryn geal RSV negati ve Not Available [facility] [address], [place], [address], 2024 09:33:18 12/12/19 25 2024 rapid strep group A, throa t Strep negati ve Not Available [facility] [address], [place], [address], 2024 09:32:25 06/20/20 25 06/23/2025 LIPID PANEL WITH REFLE X TO DIREC T LDL cholesterol, total 156 mg/dL <200 normal Not Available [facility] [address], [address], 06/23/2025 22:36:03 06/20/20 25 06/23/2025 LIPID PANEL WITH REFLE X TO DIREC T LDL HDL cholesterol 58 mg/dL > or = 50 normal Not Available [facility] [address], [place], [address], 06/23/2025 22:36:03 06/20/20 25 06/23/2025 LIPID PANEL WITH REFLE X TO DIREC T LDL triglyceride s 105 mg/dL <150 normal Not Available [facility] [address], [address], 06/23/2025 22:36:03 06/20/20 25 06/23/2025 LIPID PANEL [...] n, which is a valid ated novel ivonne alcazar accur acy than the Fried rivas equat ion in the estim ation of LDL-C . Joan olivas SS et al. TIFFANIE. 2013; 310(1 9): 2061- 2068 (http ://ed ucati on.Qu sandraSlideShare. com/f aq/FA Q164) Not Available [facility] [place] [facility] [address], [place], [address], 06/23/2025 22:36:03 06/20/2006/23/2025 LIPID PANEL WITH REFLE X TO DIREC T LDL chol/HDLC ratio 2.7 (calc ) <5.0 normal Not Available [facility] [place] [facility] [address], [place], [address], 06/23/2025 22:36:03 06/20/20 25 06/23/2025 LIPID PANEL [...] c optio n. Not Available [facility] [place] [facility] [address], [place], [address], 06/23/2025 22:36:03 06/20/2006/23/2025 COMPR EHENS FINN METAB OLIC PANEL glucose 101 mg/dL 65-99 high Fasti ng refer ence inter farzana For someo ne witho ut known diabe morgan, a gluco se value betwe en 100 and 125 mg/dL is consi stent with predi abete s and shoul d be confi rmed with a follo w-up test. Not Available [facility] [place] [facility] [address], [place], [address], 06/23/2025 22:36:04 06/20/20 25 06/23/2025 COMPR EHENS FINN METAB OLIC PANEL urea nitrogen (BUN) 12 mg/dL 7-25 normal Not Available [facility] [place] [facility] [address], [place], [address], 06/23/2025 22:36:04 06/20/20 25 06/23/2025 COMPR EHENS FINN METAB OLIC PANEL creatinine 0.88 mg/dL 0.50-1 .05 normal Not Available [facility] [place] [facility] [address], [place], [address], 06/23/2025 22:36:04 06/20/20 25 06/23/2025 COMPR EHENS FINN METAB OLIC PANEL eGFR 75 mL/mi n/1.7 3m2 > or = 60 normal Not Available [facility] [address], [place], [address], 06/23/2025 22:36:04 06/20/20 25 06/23/2025 COMPR EHENS FINN METAB OLIC PANEL BUN/creatini ne ratio SEE NOTE: (calc ) 6-22 Not Repor elvira: BUN and Creat inine are withi n refer ence range . Not Available [facility] [address], [place], [address], 06/23/2025 22:36:04 06/20/20 25 06/23/2025 COMPR EHENS FINN METAB OLIC PANEL sodium 142 mmol/ L 135-14 6 normal Not Available [facility] [address], [place], [address], 06/23/2025 22:36:04 06/20/20 25 06/23/2025 COMPR EHENS FINN METAB OLIC PANEL potassium 4.3 mmol/ L 3.5-5. 3 normal Not Available [facility] [place] [facility] [address], [place], [address], 06/23/2025 22:36:04 06/20/20 25 06/23/2025 COMPR EHENS FINN METAB OLIC PANEL chloride 107 mmol/ L 98-110 normal Not Available [facility] [place] [facility] [address], [place], [address], 06/23/2025 22:36:04 06/20/20 25 06/23/2025 COMPR EHENS FINN METAB OLIC PANEL carbon dioxide 27 mmol/ L 20-32 normal Not Available [facility] [place] [facility] [address], [place], [address], 06/23/2025 22:36:04 06/20/20 25 06/23/2025 COMPR EHENS FINN METAB OLIC PANEL calcium 9.2 mg/dL 8.6-10 .4 normal Not Available [facility] [place] [facility] [address], [place], [address], 06/23/2025 22:36:04 06/20/20 25 06/23/2025 COMPR EHENS FINN METAB OLIC PANEL protein, total 6.4 g/dL 6.1-8. 1 normal Not Available [facility] [address], [place], [address], 06/23/2025 22:36:04 06/20/20 25 06/23/2025 COMPR EHENS FINN METAB OLIC PANEL albumin 4.2 g/dL 3.6-5. 1 normal Not Available [facility] [address], [place], [address], 06/23/2025 22:36:04 06/20/20 25 06/23/2025 COMPR EHENS FINN METAB OLIC PANEL globulin 2.2 g/dL_ (calc ) 1.9-3. 7 normal Not Available [facility] [address], [place], [address], 06/23/2025 22:36:04 06/20/20 25 06/23/2025 COMPR EHENS FINN METAB OLIC PANEL albumin/glob ulin ratio 1.9 (calc ) 1.0-2. 5 normal Not Available [facility] [address], [place], [address], 06/23/2025 22:36:04 06/20/20 25 06/23/2025 COMPR EHENS FINN METAB OLIC PANEL bilirubin, total 0.4 mg/dL 0.2-1. 2 normal Not Available [facility] [address], [place], [address], 06/23/2025 22:36:04 06/20/20 25 06/23/2025 COMPR EHENS FINN METAB OLIC PANEL alkaline phosphatase 39 U/L 37-153 normal Not Available [facility] [address], [place], [address], 06/23/2025 22:36:04 06/20/20 25 06/23/2025 COMPR EHENS FINN METAB OLIC PANEL AST 14 U/L 10-35 normal Not Available [facility] [address], [place], [address], 06/23/2025 22:36:04 06/20/20 25 06/23/2025 COMPR EHENS FINN METAB OLIC PANEL ALT 12 U/L 6-29 normal Not Available [facility] [address], [place], [address], 06/23/2025 22:36:04 06/20/20 25 06/23/2025 ALBUM IN, RANDO M URINE W/CRE ATINI NE creatinine, random urine 165 mg/dL 20-275 normal Not Available [facility] [place] [facility] [address] [place], [place], [address], 06/23/2025 22:36:05 06/20/20 25 06/23/2025 ALBUM IN, RANDO M URINE W/CRE ATINI NE albumin, urine 0.6 mg/dL see note: normal Refer ence Range : Refer ence Range Not estab lishe d Not Available [facility] [place] [facility] [address] [place], [place], [address], 06/23/2025 22:36:05 06/20/20 25 06/23/2025 ALBUM IN, [...] a diagn ostic categ ory. Not Available [facility] [address], [place], [address], 06/23/2025 22:36:05 06/20/20 25 06/23/2025 FACTO R V (LEID EN) MUTAT ION SOREN SIS factor V (leiden) mutation NEGATI VE FACTO R V LEIDE N (R506 Q) VARIA NT NOT DETEC LEVIRA Not Available [facility] [address] [place], [place], [address], 06/23/2025 22:36:05 06/20/20 25 06/23/2025 FACTO R [...] Choco Briones, Ph.D. , FACMG , HCLD, CGMB. VARIA NT SOREN SIS: The Facto r V Leide n (R506 Q) varia nt [NM_[id number] 10049 .2:c. 1601G >A (p.R5 34Q)] in the [...] e conta ct your local [facility] [place] el[place] or call [phone] ([phone]) for mj tance with inter preta tion of these resul ts. This test was devel oped and its soren tical perfo rmanc e howie cteri stics have been deter mined by [facility] . It has not been clear ed or appro jw by the FDA. This assay has been valid ated pursu ant to the CLIA regul ation s and is used for clini luis purpo ses. Not Available [facility] [place] [facility] [address], [place], [address], 06/23/2025 22:36:05 06/20/20 25 06/23/2025 SED RATE BY MODIF IED WESTE RGREN sed rate by modified westergren 14 mm/h < or = 30 normal Not Available [facility] [place] [facility] [address], [place], [address], 06/23/2025 22:36:06 06/20/20 25 06/23/2025 CBC (INCL UDES DIFF/ PLT) white blood cell count 4.4 thous and/u L 3.8-10 .8 normal Not Available [facility] [place] [facility] [address], [place], [address], 06/23/2025 22:36:06 06/20/20 25 06/23/2025 CBC (INCL UDES DIFF/ PLT) red blood cell count 4.39 pina on/uL 3.80-5 .10 normal Not Available [facility] [place] [facility] [address], [place], [address], 06/23/2025 22:36:06 06/20/20 25 06/23/2025 CBC (INCL UDES DIFF/ PLT) hemoglobin 12.8 g/dL 11.7-1 5.5 normal Not Available [facility] [place] [facility] [address], [place], [address], 06/23/2025 22:36:06 06/20/20 25 06/23/2025 CBC (INCL UDES DIFF/ PLT) hematocrit 40.1 % 35.0-4 5.0 normal Not Available [facility] [place] [facility] [address], [place], [address], 06/23/2025 22:36:06 06/20/20 25 06/23/2025 CBC (INCL UDES DIFF/ PLT) MCV 91.3 fL 80.0-1 00.0 normal Not Available [facility] [place] [facility] [address] [place], [place], [address], 06/23/2025 22:36:06 06/20/20 25 06/23/2025 CBC (INCL UDES DIFF/ PLT) MCH 29.2 pg 27.0-3 3.0 normal Not Available [facility] [place] [facility] [address] [place], [place], [address], 06/23/2025 22:36:06 06/20/20 25 06/23/2025 CBC (INCL UDES DIFF/ PLT) MCHC 31.9 g/dL 32.0-3 6.0 low For adult s, a sligh t decre ase in the calcu lated MCHC value (in the range of 30 to 32 g/dL) is most likel y not clini román signi kate t; milad er, it shoul d be inter prete d with cauti on in [facility] n with other red cell stephan eters and the patie nt's clini luis condi tion. Not Available [facility] [place] [facility] [address] [place], [place], [address], 06/23/2025 22:36:06 06/20/20 25 06/23/2025 CBC (INCL UDES DIFF/ PLT) RDW 13.7 % 11.0-1 5.0 normal Not Available [facility] [place] [facility] [address] [place], [place], [address], 06/23/2025 22:36:06 06/20/20 25 06/23/2025 CBC (INCL UDES DIFF/ PLT) platelet count 140 thous and/u L 140-40 0 normal Not Available [facility] [address], [place], [address], 06/23/2025 22:36:06 06/20/20 25 06/23/2025 CBC (INCL UDES DIFF/ PLT) MPV 14.7 fL 7.5-12 .5 high Not Available [facility] [place] [facility] [address], [place], [address], 06/23/2025 22:36:06 06/20/20 25 06/23/2025 CBC (INCL UDES DIFF/ PLT) absolute neutrophils 2169 cells /uL 1500-7 800 normal Not Available [facility] [place] [facility] [address], [place], [address], 06/23/2025 22:36:06 06/20/20 25 06/23/2025 CBC (INCL UDES DIFF/ PLT) absolute lymphocytes 1712 cells /uL 850-39 00 normal Not Available [facility] [place] [facility] [address], [place], [address], 06/23/2025 22:36:06 06/20/20 25 06/23/2025 CBC (INCL UDES DIFF/ PLT) absolute monocytes 290 cells /uL 200-95 0 normal Not Available [facility] [place] [facility] [address], [place], [address], 06/23/2025 22:36:06 06/20/20 25 06/23/2025 CBC (INCL UDES DIFF/ PLT) absolute eosinophils 189 cells /uL 15-500 normal Not Available [facility] [place] [facility] [address], [place], [address], 06/23/2025 22:36:06 06/20/20 25 06/23/2025 CBC (INCL UDES DIFF/ PLT) absolute basophils 40 cells /uL 0-200 normal Not Available [facility] [place] [facility] [address], [place], [address], 06/23/2025 22:36:06 06/20/20 25 06/23/2025 CBC (INCL UDES DIFF/ PLT) neutrophils 49.3 % normal Not Available [facility] [place] [facility] [address], [place], [address], 06/23/2025 22:36:06 06/20/20 25 06/23/2025 CBC (INCL UDES DIFF/ PLT) lymphocytes 38.9 % normal Not Available [facility] [address], [place], [address], 06/23/2025 22:36:06 06/20/20 25 06/23/2025 CBC (INCL UDES DIFF/ PLT) monocytes 6.6 % normal Not Available [facility] [address], [place], [address], 06/23/2025 22:36:06 06/20/20 25 06/23/2025 CBC (INCL UDES DIFF/ PLT) eosinophils 4.3 % normal Not Available [facility] [address], [place], [address], 06/23/2025 22:36:06 06/20/20 25 06/23/2025 CBC (INCL UDES DIFF/ PLT) basophils 0.9 % normal Not Available [facility] [address], [place], [address], 06/23/2025 22:36:06 06/20/20 25 06/23/2025 RHEUM ATOID FACTO R rheumatoid factor <10 IU/mL <14 normal Not Available [facility] [address], [place], [address], 06/23/2025 22:36:07 06/20/20 25 06/23/2025 C-PEYTON CTIVE PROTE IN C-reactive protein 5.6 mg/L <8.0 normal Not Available [facility] [place] [facility] [address], [place], [address], 06/23/2025 22:36:07 06/20/20 25 06/23/2025 CYCLI C CITRU LLINA ELVIRA PEPTI DE (CCP) AB (IGG) cyclic citrullinate d peptide (ccp) Ab (IgG) <16 units normal Refer ence Range Negat finn: <20 Weak Posit finn: 20-39 Moder ate Posit finn: 40-59 Stron g Posit finn: >59 Not Available [facility] [place] [facility] [address], [place], [address], 06/23/2025 22:36:08 06/20/20 25 06/23/2025 NEREIDA MULTI PLEX W/REF YANETH 11 AB CASCA DE ENREIDA screen, immunoassay NEGATI VE negati ve normal A negat finn NEREIDA Multi plex indic ates the absen ce of detec table antib odies to compo nent soren morgan consi sting of luzma e strabrendon ded DNA (dsDN A), chrom atin, ribon ucleo prote in (TOP PRECIPITATOR OPERATOR) , [place] /TOP PRECIPITATOR OPERATOR (Sm/R FEED INSPECTION SUPERVISOR), [place] (Sm), SS-A, SS-B, Effie-1, centr omere [...] us disea se. For addit ional infor carol olivas, margarita e refer to http: //cynthia jasso n.Que stDia gnost ics.c om/fa q/FAQ 177 (This link is being provi ded for infor carol nal/ educa sophia l purpo ses only. ) Not Available [facility] [place] [facility] [address], [place], [address], 06/23/2025 22:36:09 06/20/2006/23/2025 TSH TSH 2.39 mIU/L 0.40-4 .50 normal Not Available [facility] [place] [facility] [address], [place], [address], 06/23/2025 22:36:09 06/20/20 25 06/23/2025 VITAM IN [...] /MS is recom trudy d: order code 27807 (arthur ents >2yrs ). See Note 1 Note 1 For addit ional infor margarita medina refer to http: //cynthia Matute gnost ics.c om/fa q/FAQ 199 (This link is being provi ded for infor matio nal/ educa sophia l purpo ses only. ) Not Available [facility] [place] [facility] [address], [place], [address], 06/23/2025 22:36:10 06/20/20 25 06/23/2025 HEMOG LOBIN A1C hemoglobin A1C 5.6 % <5.7 normal For the purpo se of riaz banks for the prese nce of diabe morgan: [...] Care in Diabe morgan(A DA). Not Available [facility] [place] [facility] [address] [place] [address] [address], [place], [address], 06/23/2025 22:36:11 09/07/20 24 09/26/2020 elect rocar [...] New calcif icatio ns 9:00 middle to material cutter ior depth. Increa sed calcif icatio ns [...] patien t to us, Gabriella alexander MD [phone] (Elect shruti matias Signed - 2024 13:06) Copy: RUTHIE NEAL PHYSIC IANS- OB-BULL GANG SUPERVISOR [facility] [address] [place] [address] [phone] DEBBIE SAWYER MD [facility] [address] [place] [address] [phone] [facility] ([facility]) [address], [place], [address], 08/04/2025 16:51:56 07/11/20 25 07/11/2025 mg DX- [...] 2-D mammog katt is advise d to confir m stabil ity. A separa te probab ly benign group [...] patien t to us, Gabriella alexander MD [phone] (Elect shruti matias Signed - 2024 13:45) Copy: RUTHIE NEAL PHYSIC IANS- OB-[employer] GANG SUPERVISOR [facility] [address] [place] [address] [phone] [facility] ([facility]) [address] [address], [place], [address], 08/04/2025 16:51:52 08/21/20 25 08/16/2025 CT, abdom [...] ed on the techno log[facility] was perfor med using dose optimi zation [...] MD 2024 09:18 AM EDT RP Workst [facility]: [id number] Thank you for referr ing your patien t to us, Prosper alcazar MD [phone] (Elect shruti matias Signed - 2024 09:18) [facility] ([facility]) [address] [address], [place], [address], 08/21/2025 10:46:21 09/04/20 25 07/11/2025 mg DX- [...] This addend um was discus sed with patien t on 2024 1:15 PM. 4. Recomm endati on was given to Ellen FRIAS on 2024 at 2:03pm . Electr onical ly signed by: Gabriella alexander MD 2024 02:17 PM EDT RP Workst ation: [id number] Thank you for referr ing your patien t to us, Gabriella alexander MD [phone] (Elect shruti matias Signed - 2024 14:17) Copy: RUTHIE PORTILLO NG PHYSIC IANS- [employer]-B[employer] GANG SUPERVISOR [facility] [address] [place] [address] [phone] Origin al Report : EXAMIN ATION: [...] patien t to us, Gabriella alexander MD [phone] (Elect shruti matias Signed - 2024 13:45) Copy: RUTHIE PORTILLO PHYSIC IANS- OB-B[employer] GANG SUPERVISOR [facility] [address] [facility] [place] [address] [phone] [facility] ([facility]) [address] [facility] [address], [place], [address], 09/04/2025 15:13:24 Result Notes Documentation Provider Name [...] your patient to us, Krupa Adames MD [phone] (Electronically Signed - 06/26/2025 13:06) Copy: RUTHIE ARIAS MD [facility] PHYSICIANS- OB-[employer] GANG SUPERVISOR [address] [place] [address] DEBBIE SAWYER MD [facility] [address] [place] [address] Debbie Sawyer, KILN PACKER [address] [place], [address], [place] - [facility] 08/04/2025 16:51:56 Ct, Abdomen, W/o Contrast : [...] your patient to us, Prosper Steve MD [phone] (Electronically Signed - 08/21/2025 09:18) Yanelis philippe [facility] 08/21/2025 10:46:21 Problems Name Problem SNOMED Code Status Onset Date Resolution Date Notes Provider Name and Address Organization Details Recorded Time Active immuniza tion Completed 10/04/2023 Problem Code: Z23; Problem Code Type: ICD-10; Debbie Sawyer APRN 13 [facility], [place], [address] , [facility] [employer] [facility] 3 13:13:29 Adult health examinat ion Active Problem Code: Z00.00; Problem Code Type: ICD-10; Debbie Sawyer APRN [address] [place], [address] , [facility] 3 13:13:04 Body mass index 30+ - obesity 739725761 Active Problem Code: Z68.39; Problem Code Type: ICD-10; Debbie Sawyer APRN [address] [place], [address] , [facility] 3 13:13:04 Obesity 994430273 Active Problem Code: E66.9; Problem Code Type: ICD-10; Debbie Sawyer APRN 13 [facility], [place], [address] , [facility] 3 13:13:04 Prediabe morgan 266056247 Active Problem Code: R73.03; Problem Code Type: ICD-10; Debbie Sawyer APRN 13 [facility], [place], [address] , [facility] 3 13:12:29 Impaired fasting glycemia 029544818 Active Problem Code: R73.01; Problem Code Type: ICD-10; Debbie Sawyer APRN 13 [facility], [place], [address] , [facility] 3 13:13:04 Sleep apnea 81808266 Active wears CPAP Problem Code: G47.30; Problem Code Type: ICD-10; Debbie Sawyer APRN 13 [facility], [place], [address] , [facility] 3 13:13:04 Snoring 71693465 Active Problem Code: R06.83; Problem Code Type: ICD-10; Debbie Sawyer APRN 13 [facility], [place], [address] , [facility] 3 13:13:04 Family history of Cardiova scular disease 634729560 Active Problem Code: Z82.49; Problem Code Type: ICD-10; Debbie Sawyer APRN 13 [facility], [place], [address] , [facility] 3 13:13:04 Moderate major depressi on, single episode 77362221 Active Problem Code: F32.1; Problem Code Type: ICD-10; Debbie Sawyer APRN 13 [facility], [place], [address] , [facility] 3 13:13:04 Chronic disease of tonsils AND/OR adenoids 45104324 Completed 10/04/2023 Problem Code: J35.8; Problem Code Type: ICD-10; Debbie Sawyer APRN 13 [facility], [place], [address] , [facility] 3 13:13:29 Osteoart hrosis of the carpomet acarpal joint of the thumb 05894696 Active left Problem Code: M18.9; Problem Code Type: ICD-10; Debbie Sawyer APRN 13 [facility], [place], [address] , [facility] 3 13:13:04 Arthriti s of right elbow 88541561184 24068 Active Problem Code: M13.821; Problem Code Type: ICD-10; Debbie Sawyer APRN 13 [facility], [place], [address] , [facility] 3 13:13:04 Family history of diabetes mellitus 708399232 Active Problem Code: Z83.3; Problem Code Type: ICD-10; Debbie Sawyer APRN 13 [facility], [place], [address] , [facility] 3 13:13:04 Vitamin D deficien cy 81538297 Active Problem Code: E55.9; Problem Code Type: ICD-10; Debbie Sawyer APRN 13 [facility], [place], [address] , [facility] 3 13:13:04 Hearing loss of right ear 561307798 Active MUMPS AT AGE 2 Problem Code: H91.91; Problem Code Type: ICD-10; Debbie Sawyer APRN 13 [facility], [place], [address] , [facility] 3 13:13:04 Hearing loss of left ear 039024386 Active Problem Code: H91.92; Problem Code Type: ICD-10; Debbie Sawyer APRN 13 [facility], [place], [address] , [facility] 3 13:13:04 Allergic contact dermatit is caused by plant material [id number] 174088 Completed 10/04/2023 Problem Code: L23.7; Problem Code Type: ICD-10; Debbie Sawyer APRN 13 [facility], [place], [address] , [facility] 3 13:13:29 Injury of head 90927194 Completed 10/04/2023 Problem Code: S09.90XA ; Problem Code Type: ICD-10; Debbie Sawyer APRN 13 [facility], [place], [address] , [facility] 3 13:13:29 Acute tonsilli tis 39771661 Completed 10/04/2023 Problem Code: J03.90; Problem Code Type: ICD-10; Debbie Sawyer APRN 13 [facility], [place], [address] , [facility] 3 13:13:29 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 Completed 07/31/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; s/p 2 lesions excised 2003 Problem Code: C51.9; Problem Code Type: ICD-10; Not Available [facility] 03:26:50 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 07/31/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 , excised 2016 Problem Code: C44.91; Problem Code Type: ICD-10; Not Available [facility] 3 03:26:50 Bilatera l carpal tunnel syndrome [id number] 517588 Completed 07/31/2023 R is worse than L ;surgery 09/2020 Problem Code: G56.03; Problem Code Type: ICD-10; Not Available [facility] 3 03:26:50 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 Procedures Surgical History Date Name Laterality Status Provider Name and Address Organization Details Recorded Time 2024 [id number] completed Debbie Sawyer APRN [address], [place], [address] , [employer] 5 14:51:53 2024 EGFPMammogramReport Z1231 completed Debbie Sawyer APRN [address], [place], [address] , [employer] 5 14:52:14 2024 EGFPCervicalCancerScreen Z124 completed Debbie Sawyer APRN [address], [place], [address] , [employer] 5 14:52:08 2024 EGFPDepScreen Neg Z1389 completed Debbie Sawyer APRN [address], [place], [address] , [employer] 5 14:52:15 2022 Most Recent Mammogram completed Debbie Sawyer APRN [address], [place], [address] , [facility] 5 14:40:07 2022 Date of Last Pap Smear completed [address], [place], [address] , [facility] 5 14:39:46 2016 Colonoscopy completed Debbie Sawyer APRN 13 [facility], [place], [address] , [facility] 5 10:33:30 Imaging Results None recorded. Procedure Notes None recorded. Medical Equipment None Reported. Allergies Allergen ID Allergen Name Allergen Category Reaction Reaction Severity Criticality Documentation Date Start Date Code Code System Note Provider Name and Address Organization Details Recorded Time 38763 Product containin g penicilli n (product) medicatio n hives moderate Not available 07/31/20232019 93157 8001 SNOMED Not Available [facility] 3 01:51:31 Medications Name Sig Start [...] Recorded Body height Heart rate Oxygen saturation Body mass index (BMI) Body weight Body temperature Systolic And Diastolic Provider Name and Address Organization Details Last Updated DateTime 158.75 cm 72 /min 98 % 40 kg/m2 647995. 51 g 98.6 [degF] 126/74 mm[Hg] Debbie Sawyer APRN [address] [place], [address], [facility] 09:22:09 Date Recorded Heart rate Systolic And Diastolic Provider Name and Address Organization Details Last Updated DateTime 05/12/2024 72 /min 136/78 mm[Hg] Debbie Sawyer APRN [address] [place], [address], [facility] 05/12/2024 13:29:36 Date Recorded Body height Oxygen saturation Body mass index (BMI) Body weight Provider Name and Address Organization Details Last Updated DateTime 05/12/2024 158.75 cm 98 % 40.3 kg/m2 738570.69 g Andry Herrera [facility] [employer] 05/12/2024 13:06:40 Date Recorded Systolic And Diastolic Systolic And Diastolic Systolic And Diastolic Provider Name and Address Organization Details Last Updated DateTime 06/14/2024 121/69 mm[Hg] 122/76 mm[Hg] 114/68 mm[Hg] Debbie Sawyer APRN [address] [place], [address], [facility] 06/14/2024 12:01:28 Date Recorded Body height Body mass index (BMI) Body weight Oxygen saturation Heart rate Systolic And Diastolic Provider Name and Address Organization Details Last Updated DateTime 4 158.75 cm 39.4 kg/m2 51713.7 3 g 98 % 72 /min 120/80 mm[Hg] Rosemary Sebastian [facility] 4 11:40:28 Date Recorded Systolic And Diastolic Provider Name and Address Organization Details Last Updated DateTime 06/15/2025 130/71 mm[Hg] Debbie Sawyer APRN [address] [place], [address], [facility] 06/15/2025 14:51:31 Date Recorded Body height Oxygen saturation Heart rate Body mass index (BMI) Body weight Body temperature Systolic And Diastolic Provider Name and Address Organization Details Last Updated DateTime 5 157.48 cm 98 % 67 /min 35.8 kg/m2 53913.6 7 g 98 [degF] 118/70 mm[Hg] Andry Herrera [facility] 5 14:09:51 Date Recorded Heart rate Heart rate Heart rate Systolic And Diastolic Systolic And Diastolic Systolic And Diastolic Systolic And Diastolic Provider Name and Address Organization Details Last Updated DateTime 5 58 /min 55 /min 48 /min 117/59 mm[Hg] 118/60 mm[Hg] 127/62 mm[Hg] 132/82 mm[Hg] [place], [address], [place] [facility] 16:31:00 Date Recorded Body height Oxygen saturation Body temperature Body mass index (BMI) Body weight Provider Name and Address Organization Details Last Updated DateTime 08/04/2025 157.48 cm 97 % 96.3 [degF] 33.6 kg/m2 87051.2 g Nona Fierro [place] [facility] 16:04:51 Social History Question Answer Notes LastModified by Organizat ion Details LastModified Time Tobacco Smoking Status Never Smoker Not Available [employer] 08/10/2023 11:47:47 Do You Have An Advance Directive? No Information not available 10/04/2023 What Is Your Advocate's Name? Esequiel [email or web address] Information not available 06/15/2025 What Is Your Relation To The Advocate? Information not available 10/04/2023 Do You Wear A Helmet When Biking? No Doesnt Bike [email or web address] Information not available 10/06/2023 Are You Blind [...] Or The Highest Degree You Have Received? [id number] [email or web address] Information not available 10/06/2023 Have There Been Any Changes To Your Family Or Social Situation? No [email or web address] Information not available 10/06/2023 What Is The Fluoride Status Of Your Home? Non-fluoridated [email or web address] Information not available 10/06/2023 Are There Any Guns Present In Your Home? No [email or web address] Information not available 10/06/2023 Which Of Your Hands Is Dominant? Right [email or web address] Information not available 10/06/2023 Where Do You Live? [facility] [email or web address] Information not available 10/06/2023 What Was The Date Of Your Most Recent Tobacco Screening? 06/15/2025 [email or web address] Information not available 06/15/2025 How Many Children Do You Have? 1 1 Daughter Information not available 10/04/2023 Do You Have A Patient Advocate? Yes Information not available 10/04/2023 Do You Have Any Pets? Yes [email or web address] Information not available 10/06/2023 What Is Your Relationship Status? Information not available 10/04/2023 Do You Use Your Seat Belt Or Car Seat Routinely? Yes [email or web address] Information not available 10/06/2023 Are You Sexually Active? Yes [email or web address] Information not available 10/06/2023 Do You Have Any Siblings? 1 [email or web address] Information not available 10/06/2023 Do You Have Smoke And Carbon Monoxide Detectors In Your Home? Yes [email or web address] Information not available 10/06/2023 Are There Any Smokers In Your House? No [email or web address] Information not available 10/06/2023 Do You Participate In Social Media? No [email or web address] Information not available 10/06/2023 What Types Of Sporting Activities Do You Participate In? Walks, Yardwork Information not available 10/04/2023 Do You Use Sunscreen Routinely? No [email or web address] Information not available 10/06/2023 Are You Currently [...] 10/04/2023 What is your occupation? [employer] @ [employer] Information not available 10/04/2023 What is your exercise level? Occasional [email or web address] Information not available 10/06/2023 What type of noise exposure are you exposed to? noExposureToExcessiveNoise [email or web address] Infor mation not available 10/06/2023 Mental Status Question Answer Note LastModified by Organizat ion Details LastModified Time Do you feel stressed (tense, restless, nervous, or anxious, or unable to sleep at night)? [id number] [email or web address] Information not available 10/06/2023 Do you have difficulty concentrating, remembering or making decisions? Yes somtimes [email or web address] Information not available 10/06/2023 Family History Relationship [...] : from heart and respiratory failure, smoker, [place] at age 50, benign colon polyps, RA Mother : alive, tracheal bronchial malacia, DM Paternal Grandmother: , DM Maternal Grandfather: from prostate cancer, DM Maternal Grandmother: , DM older brother Alive prostate ca, DM, arrhythmia, HTN, benign colon polyps Medical History Condition Response HOSPITALIZATIONS - nonsurgical I CARDIOVASCULAR -Cardiology H91 Hearing Loss K GASTROENTEROLOGY G47 Obstructive Sleep Apnea OTHER SIGNIFICANT HISTORY NOT LISTED N60 FCBD & Breast lumps Gynecological History Statement/Question Response Date of Last Pap Smear 06/02/2023 Most Recent Mammogram 11/03/2023 Obstetrics History GPAL:G 0 P 0 0 0 0 Immunizations Vaccine Type Date Status Note Provider Nam e and Address Organization Details Recorded Time SARS-COV-2 (COVID-19) vaccine, UNSPECIFIED 1 completed Debbie Sawyer APRN [address], [place], [address], [employer] [facility] 10/06/2023 16:25:20 SARS-COV-2 (COVID-19) vaccine, UNSPECIFIED 1 completed Debbie Sawyer APRN [address], [place], [address], [place] [facility] 10/06/2023 16:25:20 Influenza, split virus, trivalent, preservative 2 completed Debbie Sawyer APRN 13 [facility], [place], [address], [place] [facility] 10/06/2023 16:25:20 Influenza, split virus, trivalent, preservative 0 completed Debbie Sawyer APRN [address] [facility], [place], [address], [employer] [facility] 10/06/2023 16:25:20 SARS-COV-2 (COVID-19) vaccine, UNSPECIFIED 2 completed Debbie Sawyer APRN 13 [facility], [place], [address], [employer] [facility] 10/06/2023 16:25:20 Influenza, split virus, quadrivalent, PF 1 completed Dave philippe, [place] [facility] 09/04/2023 14:55:03 SARS-COV-2 (COVID-19) vaccine, UNSPECIFIED 1 completed Debbie Sawyer APRN [address] [facility], [place], [address], [employer] [facility] 10/06/2023 16:25:20 Tdap 9 completed Debbie Sawyer APRN 13 [facility], [place], [address], [employer] [facility] 10/06/2023 16:25:20 Pneumococcal conjugate PCV20, polysaccharide [id number] conjugate, adjuvant, PF 5 completed Debbie Sawyer APRN 13 [facility], [place], [address], [facility] 06/15/2025 14:54:45 COVID-19, mRNA, LNP-S, PF, tong-sucrose, 30 mcg/0.3 mL 3 completed Debbie Sawyer, [employer]ACK[employer] [address] [facility], [place], [address], [facility] 10/06/2023 16:25:20 Influenza, split virus, quadrivalent, PF 3 completed Debbie Sawyer, KILN PACKER [address] [facility], [place], [address], [facility] 10/06/2023 16:25:20 Influenza, split virus, quadrivalent, PF 2 completed Debbie Sawyer, KILN PACKER [address] [facility], [place], [address], [facility] 10/06/2023 16:25:20 COVID-19, mRNA, LNP-S, PF, tong-sucrose, 30 mcg/0.3 mL 4 completed Cissy Bogli null, [facility] 10/19/2024 07:15:22 Influenza, split virus, trivalent, PF 4 completed Cissy Bogli null, [facility] 10/19/2024 07:15:22 Influenza, recombinant, trivalent, PF 5 completed Cissy Bogli null, [facility] 09/07/2025 15:12:50 zoster recombinant 3 completed Debbie Sawyer, KILN PACKER [address] [facility], [place], [address], [facility] 10/06/2023 19:50:17 zoster recombinant 4 completed Krystal Grigsby null, [facility] 04/05/2024 08:41:43 Past Encounters Encounter ID Performer Location Encounter Start Date Encounter Closed Date Diagnosis/Indication Diagnosis SNOMED-CT Code Diagnosis ICD10 Code Diagnosis IMO Codes Diagnosis Note [id number] Debbie Sawyer APRN [facility] [address] [place] [address] 10/06/2023 15:58:18 10/12/2023 15:14:08 Active or passive immunization 528276645 Z23 1st shingrix givenutd covid and utd flureturn 6 mo for 2nd shingrix Adult heal th examination 792220773 BWP done - discussed and reviewed priors (prediabet es)living will packet given to ptutd dentistutd eye doctormedi cation and allergy list reviewed and updatedutd with her ob/gynretu rn 12 mo bwp for pex Screening for malignant neoplasm of colon 726705554 Z12.11 colonoscop y done in 2017 good til 2026 Screening for malignant neoplasm of breast 902936172 Z12.39 mammo scheduled for 10/2023 Screening for malignant neoplasm of cervix 234174184 Z12.4 last pap done with behavioral health consultant in 2022 Moderate m ajor depression, single episode 94276125 F32.1 ctn on sertraline 50mgpt feels 50mg is working wellwe can inc to 100mg if stressors worsen Prediabetes 749573568 R7 3.03 A1C is now 5.9diet, exercise, [...] of type 2 diabetes mellitus. Sleep apnea 77401085 G47 .30 compliant with CPAP Paronychia of toe 214046 002 L03.039 recommend warm soaks with epsom saltbacitr acin topically Body mass index 30+ - obesity 102011585 Z68.38 WEIGHT REDUCTION CARE PLANFollow these guidelines [...] too much Physical examination 588 0005 Z00.00 [id number] Debbie Sawyer APRN [facility] [address] [facility] [place] [address] 05/12/2024 12:57:26 05/12/2024 13:31:53 Moderate major depression, single episode 02712417 F32.1 let's increase to 150mg sertraline and take rx in eveningre- connect with your therapistf /u in 1 mo Essential hypertension 08630900 I10 new HTNstart amlodipine 5mgdiscuss ed SE [...] has 1.5 ounces of whiskey Panic attack 346321399 F 41.0 based on hx and exam -- appears pt had panic attack and htn that led to ED visit we need to wrok on reducing stressoffl oad some of corporate paralegal 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 on to pt's husbandwor k with therapist on talk therapy to ID stressors focus on breathing, walking, hydration prn ativan 0.5mg rx, we can refill this if pt feels it is needed -- but acr's hope is with bp med and inc zoloft we won't require ativan rx [id number] Debbie Sawyer APRN [address] [address] 06/14/2024 11:28:49 06/14/2024 11:59:27 Moderate major depression, single episode 21403819 F32.1 ctn on 150mg sertraline discussed it often takes 6-8 wks on inc dose to note improvemen tpt will be working with new therapist soon - this is great news!ctn with healthy foodstry to inc CV exercise as well to promote seratonin release and endorphins Hypertensive disorder 38 283950 I10 fantastic BP on amlodipine 5mg and no neg SEappt with cards scheduled [facility] mm[facility] 1 wk of bp readings prior to that appt so can present to cardiologi [facility] bp cuff compared to in office electronic and manual and very comparable so okay to use her cuff to check pressures Body mass index 30+ - obesity 366869417 Z68.38 down 5 lbs!! keep it upAim [...] you're full, before you eat too much Debbie Sawyer APRN [address] [place] [address] 2024 08:56:46 2024 09:38:01 Common cold 23729046 J00 2454 in house test for flu/covid/ [...] or concerns. Generalize d aches and pains 41540089 R52 72292 in house testing neg Bacterial conjunctivitis 494983730 H10.9 12974 treat with erytho ointment in R eye, discussion on how to usewash sheets/bed ding in 24 hr AFTER antibxno eye makeupno contacts until resolution do not rub or cross contaminat e - this can spread to your L eyehand hygiene so importantc ool compresses for comfort Temporoman dibular joint disorder 48112901 M26.609 707542 with tmj irritation - recommend 600mg ibuprofen Q8 for 72 hrs and heat to affected area [id number] Debbie Sawyer APRN [facility] [address] [place] [address] 06/15/2025 13:59:57 06/15/2025 14:50:53 Obstructive sleep apnea syndrome 04298064 G47.33 346143 compliant with CPAPdoing well on zepbound 5mg Q wk, rx renewed Moderate m ajor depression, single episode 35543526 F32.1 let's ctn 50mg sertraline you can wean to 25mg if you feel mood is stable and see after 2 wks-1 mo off medication how you feelif anxiety/de pression worsen, resume 50mg sertraline Seborrheic keratosis 394 607892 L82.1 91211 f/u with derm Pain of joint 97118820 M 25.50 27341895 let's do bw for RAconsider RA v. OArecommen d weight loss, hydration, regular exercise, stretching and PRN topical or oral nsaidsnatu ral remedy would be magnesium oral or topical cream Immunization due 6045808 08 Z23 8641216 pcv20 given Hypertensive disorder 38 226818 I10 fantastic BP on amlodipine 5mg and no neg SE you can trial 1 wk off of amlodipine since you have had profound weight loss and see if pressures have normalized since today's bp x2 were w/o medsif bp is >120/80 off of medication , plz resume 5mg amlodipine dailysaw cardio @ [facility] - requested records Prediabetes 596220910 R7 3.03 A1C is 5.9 requestedc tn [...] mellitus. Body mass index 30+ - obesity 006000446 Z68.38 amazing weight loss with zepbound!! !rx [...] much Hearing lo ss of right ear 919723749 H91.91 chronic Adult heal th examination 799645591 Z00.00 Medication s: reviewedAl lergies: reviewedAd acosta Directive: informatio n and packet provided and reminded to complete and return [facility] mo for f/ureturn 12 mo for pex bwp V accines: utd with flu, covid, tdap, shingrix and pcv20 given today S creening:P ap smear (21-65): utd with gynMammogr am (40-74): upcomingco lonoscopy (45-75): utdHep C (USPSTF now recommends that all adults aged 18 to 79 years be screened) : nonreactiv eEye exam: Q 1 yrDental exam: Q6 mo Vitamin D deficiency 347 36515 E55.9 check level with bw Factor V L eiden mutation 134911714 D68.51 032641 ordered Screening for malignant neoplasm of cervix 412613970 Z12.4 5292752 last pap done with behavioral health consultant in 2022 Screening for malignant neoplasm of colon 007297960 Z12.11 6483792 colonoscop y done in 2017 good til 2026 Screening mammography 24 577121 Z12.31 6342940 mammo scheduled for 10/2023 Screening for disorder 864933857 Z13.89 3459280 Depression screening 171 812923 Z13.31 9502915896 [id number] Debbie Sawyer APRN [facility] [address] [place] [address] 08/04/2025 15:59:03 08/04/2025 16:30:21 Hypertensive disorder 09271371 I10 pt has had notable weight loss with zepboundbp @ home soft and hr lowdiscuss ion that low HR - may be r/t her medication s - we need to evaluate this to see if we can adjust let's trial 2.5mg amlodipine with goal bp 120-130/70 s; goal hr 50sekg reviewed from director nurses' registry, consider re-eval with cardio with possible infarctekg from 2022 compared and also sinus flako (no mention of infarct)pt saw cardio in 2023, we can revisit /1 06/15, Cardiology Note, Trip Marshall MD, fam hx CAD: EKG, NSR 64 bpm, TTE, nml, EF 60-65%, BP 120/68mm Hg Acute abdominal pain 116 103635 R10.9 89944 based on hx and presentati on: possibilit [...] Section Related Observation LastModified by Organization Detai sade LastModified Time None Recorded Concern Status LastModified by Organization Details LastModified Time None Recorded Advance Directives Directive N: Payers Insurance Date Sequence Insurance Name Policy Number Policy Posey Covered Member ID Posey Member ID Guarantor Name 08/04/2025 1 [facility] [id number] Sasha Miranda [id number] Sasha Miranda 06/14/[address] [place] [address] [id number] Esequiel Miranda [id number] Sasha Miranda Notes Date Note Type Note Provider Name and Address Organization Details Recorded Time 05/12/2024 text/html pt here for f/u after hospitalshe is primary corporate paralegal for her motherher mother was in hospital 04/13 for PE for 1 wkher mom was in hospital again for low o2 sat on 04/28pt took bp @ her mother's home on thursdaymay 06 and pressure 150/108, 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 and reading again [...] of help but mainly sasha is primary corporate paralegal of her momshe has taken ativan x4 times .5mg since may 06 (today is may 12) she feels about the same but notes some improvement messaged therapist as well Debbie Sawyer APRN [address], [place], [address], [facility] 05/12/2024 14:05:33 06/14/2024 text/html ROS as noted [...] am Debbie Sawyer APRN [address], [place], [address], [facility] 06/14/2024 12:05:14 2024 text/html ROS as noted in the HPI pt had flu A in 4did feel full resolution of symptomson 12/07 started to fee sick again with cold like symptomsST, ears feel blocked, cough in am (productive)TMJ (jaw locked for 24 hrs)teeth feel sensitivelast night 12/11 R eye gritty sensation, discharge , uncomfortable- conjunctivitistook home flu and covid which was negsome body aches and sneezingno sob, no cough throughout the day (just in am)denies fever, chillsmucinex dm [id number] for flu/covid/strep/rsv in office Debbie Sawyer APRN [address], [place], [address], [facility] 2024 09:40:08 06/15/2025 text/html pt here for pex nfno bw or urine providedeye exam- 14 months ago, goes annuallydentist- 04/2025- goes every 6 monthsderm - annually, appt upcomingob/obstetrics and gynecology professor - appt scheduled for decemberpap done 2022 and normalmammo done in 2022 and normal, has appt next week @ [facility] for mammocolonoscopy done in 2016, repeat 10 [...] like further workup6. [facility] did [facility] get sent here?7. mother has Factor V d/o, wondering if she does too Debbie Sawyer APRN [address], [place], [address], [facility] 06/15/2025 18:31:31 08/04/2025 text/html ROS as noted in the HPI Thursday @ 11pm had severe mid abd, front of body/chest, shoulder and back painsevere [id number]/10 painfelt very unwellcalled 911emt arrived and assesseddid [...] in 2023 and was told all normal Debbie Sawyer APRN [address], [place], [address], [facility] 08/04/2025 17:12:29 OBGyn Episode No OBEpisode recorded.
--- OUTSIDE RECORDS SUMMARY | 2025-10-25 15:20 | XMS_ITS | Clinical Summary ---
Author Organization [facility] Address [address] [place] [address] Care Team Providers Care Director Microbiology Name Role Phone Viral Rico MD Primary Care Provider + [phone] Medications Escitalopram Oxalate (LEXAPRO) 10 MG tablet [...] this topic Zoster (Zostavax) Discontinued Care Teams Director Microbiology Relationship Specialty Start Date End Date Viral Rico MD [address] [facility] [address] [place] [id number] PCP - General 06/29/23
== END 2025-10-25 12:54 | disposition home or self-care (01) ==
LOC: HO.MRI 12:53
PROVIDERS: Visit Provider Surgery
DX: N60.91 Unspecified benign mammary dysplasia of right breast (principal)
CPT/HCPCS: 77049; A9585

== ENCOUNTER → 2025-10-25 13:02 | Outpatient (BNV) | payer OTHER, SELFPAY | PROVIDERS: Visit Provider Internal Medicine | DX: N60.91 Unspecified benign mammary dysplasia of right breast (principal) | CPT/HCPCS: 77049 ==

== ENCOUNTER 2025-11-17 10:47 | Emergency (ER) | payer OTHER, SELFPAY ==
--- NOTE | ~2025-11-17 | US_ITS ---
EXAMINATION: US ABDOMEN LIMITED HISTORY: RUQ pain pos Wylie sign TECHNIQUE: Real-time grayscale ultrasound imaging of the right upper quadrant was performed and images were reviewed. COMPARISON: There are no prior studies available for comparison. FINDINGS: Liver: The right lobe of the liver measures 17.5 cm in size. The left lobe of the liver measures 9.0 cm in size. The liver demonstrates mildly increased echotexture, consistent with steatosis. No focal mass or intrahepatic biliary ductal dilatation is identified. There is normal hepatopedal flow in the portal vein. Gallbladder and biliary tree: The gallbladder is distended and demonstrates intraluminal calculi. There is no wall thickening or pericholecystic fluid. There is no sonographic Wylie sign. The common bile duct is normal in caliber measuring 5 mm in diameter. Right Kidney: The right kidney measures 10.5 cm in length. The right kidney is unremarkable, without evidence of masses, hydronephrosis, or calculi. Pancreas: The pancreatic head, neck, and body are unremarkable. The pancreatic tail is obscured by bowel gas. Abdominal aorta and inferior vena cava: The visualized portions of the abdominal aorta and inferior vena cava are normal in caliber. There is no free fluid in the right upper quadrant. US/US abdomen limited IMPRESSION: 1. Distended gallbladder with cholelithiasis. 2. Mild hepatic steatosis. Electronically signed by: Liang Young MD 11/17/2025 01:35 PM EST
--- NOTE | 2025-11-17 10:50 | ECG_ITS ---
Test Reason : ABD PAIN Blood Pressure : */* mmHG Vent. Rate : 68 BPM Atrial Rate : 68 BPM P-R Int : 158 ms QRS Dur : 86 ms QT Int : 414 ms P-R-T Axes : 42 67 58 degrees QTcB Int : 440 ms Normal sinus rhythm Low voltage QRS Nonspecific ST abnormality Abnormal ECG When compared with ECG of 06-May-2024 09:11, Left posterior fascicular block is no longer Present T wave inversion no longer evident in Lateral leads Referred By: Generic ED Physician Electronically Signed By: LAKISHA JETT MD
[2025-11-17 10:54] VITALS: BP 155/71; PULSE 70; RESP 18; TEMP 36.8; O2SAT 100; BMI 32.0
--- OUTSIDE RECORDS SUMMARY | 2025-11-17 11:30 | XMS_ITS | Clinical Summary ---
Author Organization [facility] Prior to 04/22/25 Address [address] [place] [address] Care Team Providers Care Wagon Person Name Role Phone Unavailable Primary Care Provider [...]
--- OUTSIDE RECORDS SUMMARY | 2025-11-17 11:30 | XMS_ITS | Clinical Summary ---
Author Organization [facility] Address [address] [place] [address] Care Team Providers Care Electronic Imager Name Role Phone Viral Rico MD Primary Care Provider + [phone] Medications Escitalopram Oxalate (LEXAPRO) 10 MG tablet [...] Last Done Comments Hepatitis C Screening 1965 MMR (Born 1959-68) 1965 Pap Smear 1979 DTaP/Tdap/Td (1 - Tdap) 1981 Mammogram/Breast Imaging 2003 Colon Cancer Screening 2008 Pneumococcal 50+ years (1 of 1 - PCV) 2013 Zoster (Shingrix) (1 of 2) 2013 COVID-19 Vaccine ( - season) 2025 09/02/2023, [...] this topic Zoster (Zostavax) Discontinued Care Teams Electronic Imager Relationship Specialty Start Date End Date Viral Rico MD [address] [facility] [address] [place] [address] PCP - General 06/29/23
--- OUTSIDE RECORDS SUMMARY | 2025-11-17 11:30 | XMS_ITS | Clinical Summary ---
Author Organization [facility] Address [address] [place] [address] Care Team Providers Care [place] Grainer Name Role Phone Maryuri Sawyer NP Primary Care Provider [phone] Allergies Active Allergy Reactions Criticality Noted Date [...] EDT Hospital Encounter OP SPECIMEN LAB [address] [place] [address] Leslie Bailey MD Discharge Disposition: Home or [...] Care Team (Late st Contact Info) Description 02/20/2026 3:00 PM EDT Office Visit [facility] Phys[facility] [place] [address] [place] [phone] Kylah Damon MD [address] [place] [address] Health Maintenance Due Date Last Done Comments [...] IMAGING BREAST/BX/MAMMO Routine 09/15/2025 10:29 AM EDT THINPREP PAP(ISO COORDINATOR) HPV SCR RFX HPV 16,18/45 Routine 06/02/2023 [...] referring your patient to us, Leslie Bailey [phone] (Electronically Signed - 09/21/2025 13:52) Narrative 09/21/2025 [...] by: Steve Patel MD 09/26/2025 12:13 PM [facility] Thank you for referring your patient to us, Steve Patel MD [phone] (Electronically Signed - 09/26/2025 12:13) Original Report: [...] Patel MD 09/26/2025 12:13 PM EST RPWorkstation: [id number] Thank you for referring your patient to us, Steve Patel MD [phone] (Electronically Signed - 09/26/2025 12:13) Original Report: [...] small skinincision was made, a 9 G Discovery Machineos vacuum-assisted device was advanced to the calcifications. [...] Bailey MD 09/21/2025 01:52 PM EDT RPWorkstation: [id number] Thank you for referring your patient to us, Leslie Bailey [phone] (Electronically Signed - 09/21/2025 13:52) us Kylah [...] referring your patient to us, Leslie Bailey [phone] (Electronically Signed - 09/21/2025 13:52) Narrative 09/21/2025 [...] your patient to us, Steve Patel MD [phone] (Electronically Signed - 09/26/2025 12:13) Original Report: [...] skin incision was made, a 9 G [employer] vacuum-assisted device was advanced to the calcifications. [...] Patel MD 09/26/2025 12:13 PM EST RPWorkstation: [id number] Thank you for referring your patient to us, Steve Patel MD [phone] (Electronically Signed - 09/26/2025 12:13) Original Report: [...] small skinincision was made, a 9 G [employer] vacuum-assisted device was advanced to the calcifications. [...] Bailey MD 09/21/2025 01:52 PM EDT RPWorkstation: [id number] Thank you for referring your patient to us, Leslie Bailey [phone] (Electronically Signed - 09/21/2025 13:52) Kylah Damon MD IMG LEGACY PROCEDURES Edited [...] Bailey MD 09/21/2025 01:52 PM EDT RP Workstation: [employer] Thank you for referring your patient to us, Leslie Bailey [phone] (Electronically Signed - 09/21/2025 13:52) Narrative 09/21/2025 [...] by: Steve Patel MD 09/26/2025 12:13 PM [facility] Thank you for referring your patient to us, Steve Patel MD [id number] (Electronically Signed - 09/26/2025 12:13) Original Report: [...] skin incision was made, a 9 G [employer] vacuum-assisted device was advanced to the calcifications. [...] Patel MD 09/26/2025 12:13 PM EST RPWorkstation: [id number] Thank you for referring your patient to us, Steve Patel MD [phone] (Electronically Signed - 09/26/2025 12:13) Original Report: [...] small skinincision was made, a 9 G [employer] Machine[employer] vacuum-assisted device was advanced to the calcifications. [...] Bailey MD 09/21/2025 01:52 PM EDT RPWorkstation: [id number] Thank you for referring your patient to us, Leslie Bailey [phone] (Electronically Signed - 09/21/2025 13:52) us Kylah Dmaon MD IMG MAMMOGRAPHY ORDERABLES Daniel elvira Result - Final * Pathology (09/21/2025 12:00 AM EDT) Report [facility] CLIA ID [id number] [address] [place] [phone] Surgical Pathology Report PATIENT NAME: MICHELE MIRANDA [facility] REC NUMBER: [id number] (AGE): 1965 (Age: 59) SPECIMEN NUMBER: [id number] DATE OBTAINED: 09/21/2025 DIAGNOSIS RIGHT BREAST, CORE BIOPSY AT 9 O'CLOCK: SEVERELY ATYPICAL DUCTAL HYPERPLASIA, 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 SEE COMMENT. 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 Although it shows features consistent with low grade DCIS, quantitatively it is too scant (two ducts) to establish a definitive diagnosis of DCIS and final diagnosis is deferred to evaluation of the excision specimen. [id number] Clinical Information and History: Right breast calcifications [...] ischemic time is within the required parameters. [facility] 09/21/2025 09/22/2025 7:0 1 AM EDT Comment:STEREO BX RIGHT JOSLYN ST 9:00 + CALCS 9G 6 CORES us Leslie Bailey MD PATHOLOGY/CYTOLOGY ORDERABLES Final Result HOSPITAL LAB See Below * Imaging Breast/Bx/Mammo Result (09/15/2025 10:29 AM EDT) Anatomical Region Laterality Modality Other External Provider IMG LEGACY PROCEDURES Final Result * ThinPrep Pap HPV 16,18/45 Reflex on all Dx (06/02/2023 10:14 AM EDT) 06/02/2023 10:1 4 AM EDT Narrative [facility] - 06/04/2023 8:37 AM EDT To view the final report click the scan hyperlink below. us Kylah Damon MD LAB [facility] PATH/CYTO ORDERABLES F inal Result [facility] [address] [place] [address], from Last 3 Months or Most Recently Relevant to Health Maintenance Insurance [facility] Care Teams [place] Grainer Relationship Specialty Start Date End Date Maryuri Sawyer NP [address] [place] [phone] PCP - General 06/07/24
[2025-11-17 11:53] LABS: MANUAL DIFF FLAG NO
[2025-11-17 11:56] LABS: Appearance Urine Clear; Glucose Urine UA Negative (Negative); PH 6.0 (5.0-9.0); Specific Gravity - Urine 1.010 (1.005-1.025)
[2025-11-17 11:57] LABS: Hematocrit 40.6 % (37.0-47.0); Hemoglobin 13.5 g/dl (12.0-16.0); Imm Gran Abs Auto 0.03 X10*3/uL (0.00-0.03); Imm Gran Pct Auto 0.4 % (0.0-0.4); Lymphocytes Absolute Auto 2.8 X10*3/uL (1.2-4.9); Mean Corpuscular HGB Conc 33.3 g/dl (31.0-35.0); Mean Corpuscular Hemoglobin 29.4 pg (27.0-33.0); Mean Corpuscular Volume 88.5 fL (80.0-98.0); NRBC Abs Auto 0.000 X10*3/uL (0.0-0.012); NRBC Pct Auto 0.0 /100WBC (0.0-0.2); Platelet Count 170 X10*3/uL (160-400); Red Blood Count 4.59 X10*6/uL (4.20-5.50); White Blood Count 8.4 X10*3/uL (4.8-10.8)
[2025-11-17 12:10] LABS: Alanine Aminotransferase 22 U/L (0-31); Albumin Level 4.4 g/dL (3.5-5.0); Alkaline Phosphatase 56 U/L (39-117); Anion Gap 13 (12-20); Aspartate Amino Transferase 34 U/L (5-31); Blood Urea Nitrogen 14 mg/dL (9-16); Calcium 9.5 mg/dL (8.4-10.2); Carbon Dioxide 26 mmol/L (22-29); Chloride 107 mmol/L (96-108); Creatinine Clr Calc Pharmacy 75.8; Estimated Glomerular Filt Rate > 60; Lipase 16 U/L (8-78); Magnesium 2.0 mg/dL (1.6-2.6); Potassium 3.7 mmol/L (3.3-5.1); Sodium 142 mmol/L (135-145); Total Protein 6.7 g/dL (6.5-8.0)
[2025-11-17 12:18] LABS: Troponin-I High Sensitivity < 2.7 ng/L (<3.5-17.0)
--- NOTE | 2025-11-17 12:39 | ED_ITS ---
HPI - Abdominal Pain General Chief Complaint: Abdominal Pain Stated Complaint: abd upper back pain Time Seen by Provider: 11/17/25 11:15 Source: patient and family () Mode of arrival: ambulatory Limitations: no limitations History of Present Illness ED Provider: CHERYL GARCÍA PA-C HPI narrative: 59 year old female presents to the ED today for evaluation of acute onset abdominal pain x this morning. Reports eating a coffee cake and drinking coffee and tea around 0600. Around 1000 developed epigastric abdominal pain that has been progressively worsening, now wrapping around to her back on either side. Reports nausea secondary to the pain. No vomiting. Rates pain 8/10 at present. She did not trial anything for the pain [employer]CH[employer]. She reports similar episode back in July where she was evaluated in the ED for RUQ abd pain - repotrs normal CT scan at that time. pain eventually resolved. No issues since. Denies fever, chills, chest pain, sob, diarrhea, constipation, urinary sx. Related Data Home Medications ?Medication ?Instructions ?Recorded ?Confirmed amlodipine 5 mg tablet 2.5 mg PO DAILY 10/02/2509/16 sertraline 100 mg tablet 50 mg PO DAILY 10/02/2509/23 Previous Rx's ?Medication ?Instructions ?Recorded ketorolac 10 mg tablet 10 mg PO Q8H PRN pain (scale score 11/17/25 4-6) 5 days #15 tabs ondansetron 4 mg disintegrating 4 mg PO Q8H PRN nausea and 11/17/25 tablet vomiting #10 tabs Allergies Allergy/AdvReac Type Severity Reaction Status Date / Time Penicillins Allergy Rash Verified 11/17/25 10:55 Review of Systems Review of Systems Yes all other systems are reviewed and are negative [facility] Past Medical History Attestation statement: The following information was validated with the patient. Source: old records reviewed and nursing notes reviewed Medical History Anxiety DANIEL (obstructive sleep apnea) Obesity Surgical History History of carpal tunnel release of both wrists Hx of tonsillectomy Family History Family History Mother Hypertension Father Heart attack Hypertension CHF (congestive heart failure) Brother Aortic calcification Prostate cancer Paternal Aunt Breast cancer, Onset Age: 75 Social History Social History Alcohol intake: current Comment: rarely Patient Tobacco Use Status: Never used Tobacco Physical Exam ED Vital Signs: Vital Signs - 24 hr 11/17/25 10:54 11/17/25 13:19 11/17/25 13:20 Temperature 98.3 F 97.8 F Pulse Rate 70 63 Respiratory Rate 18 18 18 Blood Pressure 155/71 H 128/67 Pulse Oximetry 100 97 Oxygen Delivery Method Room Air Room Air 11/17/25 15:18 11/17/25 15:23 Temperature 97.6 F 97.6 F Pulse Rate 59 59 Respiratory Rate 16 16 Blood Pressure 135/72 135/72 Pulse Oximetry 97 97 Oxygen Delivery Method Room Air Room Air BMI result Body Mass Index 32.0 hypertensive, vitals are otherwise wnl General: Well-appearing, writhing around on stretcher however in no acute distress Skin: Warm, dry, intact. No rashes or lesions. Head: Normocephalic, atraumatic. EENT: Hearing is intact b/l. Conjunctiva clear. PERRLA. EOM intact. Moist mucous membranes.? Neck: Supple without LAD Cardiac: Chest wall symmetric. RRR Lungs: Normal respiratory effort without accessory muscle use. CTA bilaterally. Abdomen: soft, nondistended, tender to palpation of the epigastric region with positive Wylie's sign to right upper quadrant. Active bowel sounds x4. Back: No midline spinous or paraspinal tenderness. No step off deformity. Ext: Upper and lower extremities atraumatic, without tenderness, deformity, swelling or erythema Neuro: AOx3. Normal speech. Ambulating with steady gait. Course Course Course Narrative: CBC without leukocytosis or left shift. No anemia, h&h stable. Chemistry without acute electrolyte abnormality requiring intervention. No radhames. Liver function and lipase wnl. Trop undetectable. UA without infection. Abd US showing: US/US abdomen limited IMPRESSION: ? 1. Distended gallbladder with cholelithiasis. ? 2. Mild hepatic steatosis. On re-evaluation, patient reports resolution of pain w/ morphine and toradol. Tolerating PO without reported pain. Patient has biliary colic. Will d/c home with toradol and zofran. Advised general surgery f/u, referral provided.?Patient has remained stable throughout ED visit today. Discussed worrisome signs and symptoms and when to return to the ED. All questions answered at this time. Patient is agreeable with disposition and stable for discharge. Medical Decision Making Medical Decision Making [facility] Narrative: 59 year old female presents to the ED today for evaluation of acute onset abdominal pain x this morning. Patient is hypertensive, afebrile. She is uncomfortable appearing, writhing around on stretcher however in no acute distress. Her abdomen is soft, nondistended, tender to palpation of the epigastric region with positive Wylie's sign to right upper quadrant. Active bowel sounds x4. Differential diagnosis includes biliary colic, renal colic, nephrolithiasis, gastroenteritis, gastritis, PUD. Abdominal exam without peritoneal signs. No evidence of acute abdomen at this time. Well appearing. Moderate suspicion for acute hepatobiliary disease (including acute cholecystitis). Less likely to represent acute pancreatitis, perforated ulcer/ GI bleed, acute infectious processes (pneumonia, hepatitis, pyelonephritis), atypical appendicitis, vascular catastrophe, bowel obstruction or viscus perforation. Presentation not consistent with other acute, emergent causes of abdominal pain at this time. Plan: labs, UA, pain control, RUQ US, serial reassessment Differential Diagnosis Differential Diagnoses: The differential diagnosis associated with the presentation includes as above. Admission/Observation Consideration of admission/observation: Escalation of care including admission/observation considered Lab Data MDM Lab Attestation statement: I reviewed the patient's lab results. as above. 11/17/25 11:49 11/17/25 11:49 Labs: Lab Results 11/17/25 Range/Units 11:49 WBC 8.4 (4.8-10.8) X10*3/uL RBC 4.59 (4.20-5.50) X10*6/uL Hgb 13.5 (12.0-16.0) g/dl Hct 40.6 (37.0-47.0) % MCV 88.5 (80.0-98.0) fL MCH 29.4 (27.0-33.0) pg MCHC 33.3 (31.0-35.0) g/dl RDW 12.4 (11.0-16.0) % Plt Count 170 (160-400) X10*3/uL MPV 12.7 H (9.4-12.3) fL Immature Gran % (Auto) 0.4 (0.0-0.4) % Neut % (Auto) 58.0 (45-73) % Lymph % (Auto) 33.5 (20-40) % [place] % (Auto) 6.1 (2-11) % Eos % (Auto) 1.3 (0-4) % Baso % (Auto) 0.7 (0-2) % Lymph # (Auto) 2.8 (1.2-4.9) X10*3/uL [place] # (Auto) 0.5 (0.1-1.2) X10*3/uL Eos # (Auto) 0.1 (0.0-0.4) X10*3/uL Baso # (Auto) 0.1 (0.0-0.2) X10*3/uL Abs Immat Gran (auto) 0.03 (0.00-0.03) X10*3/uL Absolute Neuts (auto) 4.8 (2.0-8.3) x10*3/uL Absolute Nucleated RBC 0.000 (0.0-0.012) X10*3/uL Nucleated RBC % (auto) 0.0 (0.0-0.2) /100WBC Sodium 142 (135-145) mmol/L Potassium 3.7 (3.3-5.1) mmol/L Chloride 107 (96-108) mmol/L Carbon Dioxide 26 (22-29) mmol/L Anion Gap 13 (12-20) BUN 14 (9-16) mg/dL Creatinine 0.76 (0.5-1.4) mg/dL Estim Creat Clear Calc 75.8 Estimated GFR > 60 Random Glucose 114 (60-115) mg/dL Calcium 9.5 (8.4-10.2) mg/dL Magnesium 2.0 (1.6-2.6) mg/dL Total Bilirubin 0.3 (0.0-1.0) mg/dL AST 34 H (5-31) U/L ALT 22 (0-31) U/L Alkaline Phosphatase 56 (39-117) U/L Troponin I High Sens < 2.7 (<3.5-17.0) ng/L Total Protein 6.7 (6.5-8.0) g/dL Albumin 4.4 (3.5-5.0) g/dL Lipase 16 (8-78) U/L Urine Color Yellow Urine Appearance Clear Urine pH 6.0 (5.0-9.0) Ur Specific [place] 1.010 (1.005-1.025) Urine Protein Negative (Neg-Trace) mg/dL Urine Glucose (UA) Negative (Negative) mg/dL Urine Ketones Negative (Negative) mg/dL Urine Blood Negative (Negative) Urine Nitrite Negative (Negative) Ur Leukocyte Esterase Negative (Negative) Independent Interpretation I performed an independent interpretation of an: EKG and Ultrasound Interpretation: EKG showing normal sinus rhythm, rate of 68 beats per minute, QT 414, QTC 440, no acute ischemic changes or ST elevations Right upper quadrant US showing cholelithiasis, no GB wall thickening Radiology Impression Discussion of test interpretation with radiology: I have reviewed the radiologist's reading. Radiologist Impression: Procedure(s): US abdomen limited Accession Number(s): [id number] cc: Cheryl García; Adelina Sawyer Reason for Exam: RUQ pain pos wylie sign EXAMINATION: US ABDOMEN LIMITED HISTORY: RUQ pain pos Wylie sign TECHNIQUE: Real-time grayscale ultrasound imaging of the right upper quadrant was performed and images were reviewed. COMPARISON: There are no prior studies available for comparison. FINDINGS: Liver: The right lobe of the liver measures 17.5 cm in size. The left lobe of the liver measures 9.0 cm in size. The liver demonstrates mildly increased echotexture, consistent with steatosis. No focal mass or intrahepatic biliary ductal dilatation is identified. There is normal hepatopedal flow in the portal vein. Gallbladder and biliary tree: The gallbladder is distended and demonstrates intraluminal calculi. There is no wall thickening or pericholecystic fluid. There is no sonographic Wylie sign. The common bile duct is normal in caliber measuring 5 mm in diameter. Right Kidney: The right kidney measures 10.5 cm in length. The right kidney is unremarkable, without evidence of masses, hydronephrosis, or calculi. Pancreas: The pancreatic head, neck, and body are unremarkable. The pancreatic tail is obscured by bowel gas. Abdominal aorta and inferior vena cava: The visualized portions of the abdominal aorta and inferior vena cava are normal in caliber. There is no free fluid in the right upper quadrant. US/US abdomen limited IMPRESSION: 1. Distended gallbladder with cholelithiasis. 2. Mild hepatic steatosis. Electronically signed by: Liang Young MD 11/17/2025 01:35 PM [facility] [place] Clinical information obtained from an independent historian. History obtained from or confirmed by: Spouse External Record Review External record reviewed: Inpatient record Prescription Management I considered prescription management with: Pain Medication Social Determinants Patient?s care significantly limited by Social Determinants of Health including: Other Social Determinant of Health Medications Administered Discontinued Medications Generic Name Dose Route Start Last Admin Trade Name Freq PRN Reason Stop Dose Admin Sodium Chloride 1,000 mls @ 999 mls/hr 11/17/25 12:30 11/17/25 15:15 Ns IV 11/17/25 13:30 Infused .Q1H1M OTILIA Infusion Ketorolac Tromethamine 15 mg 11/17/25 15:02 11/17/25 15:15 Ketorolac Tromethamine 15 Mg/Ml Vial IVPUSH 11/17/25 15:03 15 mg ONCE ONE Administration Morphine Sulfate 4 mg 11/17/25 12:26 11/17/25 13:19 Morphine Sulfate 4 Mg/Ml Cartridge IVPUSH 11/17/25 12:27 4 mg ONCE ONE Administration Protocol Ondansetron HCl 4 mg 11/17/25 12:26 11/17/25 13:19 Ondansetron Hcl 4 Mg/2 Ml Vial IVPUSH 11/17/25 12:27 4 mg ONCE ONE Administration Critical Care Time Critical Care Time Critical Care Time: Yes Total Critical Care Time: 35 Attestation: Critical care time in the amount of 35 minutes has been provided to the patient in terms of direct patient care, frequent reevaluation on IV morphine, review and interpretation of medical data and results, and management of potentially life-threatening conditions. This is all outside of any medical procedures. Discharge Plan Discharge Clinical Impression: Cholelithiasis, Biliary colic Patient Disposition: Home, Self-Care Instructions: Biliary Colic (ED), Gallstones (ED) Additional Instructions: You were evaluated in the ED today for your abdominal pain. Your blood work is reassuring. You ultrasound of your abdomen shows gallstones within your gallbladder. Your gallbladder is not infected. As discussed, this is called biliary colic. Avoid any fatty or greasy foods as this can trigger pain. I am sending Toradol to your pharmacy for you to take as needed for pain. Do not taking this with other NSAIDs as this can increase risk of GI bleeding. I am also sending zofran to your pharmacy for you to take as needed for nausea. Follow up with general surgery. They will be able to order further imaging and discuss any warranted treatment. Return with any new or worsening symptoms. In the case of an emergency call 911. Prescriptions: New ketorolac 10 mg tablet 10 mg PO Q8H PRN (Reason: pain (scale score 4-6)) 5 Days Qty: 15 0RF Rx Instructions: maximum total duration of 5 days from all oral, intranasal, or parenteral formulations ondansetron 4 mg tablet,disintegrating 4 mg PO Q8H PRN (Reason: nausea and vomiting) Qty: 10 0RF No Action amlodipine 5 mg tablet 2.5 mg PO DAILY sertraline 100 mg tablet 50 mg PO DAILY Referrals: [facility] [place] General Surgeons [Provider Group, General Surgery] Referral Note: biliary colic Interventions: ED Discharge Assessment Last Done: 11/17/25 15:23 Discharge Date/Time: 11/17/25 15:23 Print Language: Urdu
[2025-11-17 13:19] VITALS: RESP 18
[2025-11-17 13:20] VITALS: BP 128/67; PULSE 63; RESP 18; TEMP 36.6; O2SAT 97
[2025-11-17 15:18] VITALS: BP 135/72; PULSE 59; RESP 16; TEMP 36.4; O2SAT 97
[2025-11-17 15:23] VITALS: BP 135/72; PULSE 59; RESP 16; TEMP 36.4; O2SAT 97
== END 2025-11-17 15:23 | disposition home or self-care (01) ==
PROVIDERS: Physician Assistant Medical; Emergency Provider Emergency Medicine; PCP Nurse Practitioner Adult Health
DX: K80.50 Calculus of bile duct without cholangitis or cholecystitis without obstruction (principal); M54.9 Dorsalgia, unspecified; R10.13 Epigastric pain; R94.31 Abnormal electrocardiogram [ECG] [EKG]
CPT/HCPCS: 36415; 76705; 80053; 81003; 83690; 83735; 84484; 85025; 93005; 96361; 96374; 96375; 99284; 99285; J1885; J2270; J2405

== ENCOUNTER → 2025-11-17 10:50 | Outpatient (BNV) | payer OTHER, SELFPAY | PROVIDERS: Emergency Provider Emergency Medicine; Visit Provider Internal Medicine Cardiovascular Disease | DX: R94.31 Abnormal electrocardiogram [ECG] [EKG] (principal); R10.9 Unspecified abdominal pain | CPT/HCPCS: 93010 ==

== ENCOUNTER → 2025-11-17 12:26 | Outpatient (BNV) | payer OTHER, SELFPAY | PROVIDERS: Emergency Provider Emergency Medicine; Visit Provider Radiology Diagnostic Radiology | DX: K80.20 Calculus of gallbladder without cholecystitis without obstruction (principal); K76.0 Fatty (change of) liver, not elsewhere classified; K82.8 Other specified diseases of gallbladder | CPT/HCPCS: 76705 ==